=== PATIENT | female | born 1990 | race Caucasian/White ===

== ENCOUNTER 2023-02-05 10:00 | Outpatient (OUT) | payer MEDICAID, SELFPAY ==
[2023-02-05 10:16] LABS: Basophils Percent Auto 0.2 % (0.2-2.0); Eosinophils Absolute Auto 0.1 10^3/uL (0.0-0.7); Eosinophils Percent Auto 0.6 % (0.9-7.0); Hematocrit 37.3 % (36.0-48.0); Hemoglobin 12.3 g/dL (12.0-16.0); Immature Granulocytes Abs Auto 0.05 10^3/uL (0.00-0.03); Immature Granulocytes Pct Auto 0.4 % (0.0-0.5); Lymphocytes Absolute Auto 1.9 10^3/uL (1.2-3.8); Lymphocytes Percent Auto 16.8 % (20.5-60.0); Mean Corpuscular Hemoglobin 28.7 pg (26.7-34.0); Mean Corpuscular Volume 87.1 fL (81.0-99.0); Mean Platelet Volume 9.6 fL (9.5-13.5); Monocytes Absolute Auto 0.5 10^3/uL (0.3-0.8); Monocytes Percent Auto 4.4 % (1.7-12.0); Neutrophils Absolute Auto 8.7 10^3/uL (1.4-6.5); Neutrophils Percent Auto 77.6 % (43.0-75.0); Platelet Count 273 10^3/uL (150-450); Red Blood Count 4.28 10^6/uL (4.20-5.40); Red Cell Distribution Width 13.8 % (11.0-15.0); White Blood Count 11.2 10^3/uL (4.0-11.0)
[2023-02-05 12:18] LABS: Glucose 1 Hour 90 mg/dL
== END 2023-02-05 10:01 | disposition home or self-care (01) ==
LOC: LAB 10:01
PROVIDERS: Visit Provider Obstetrics & Gynecology
DX: Z34.90 Encounter for supervision of normal pregnancy, unspecified, unspecified trimester (principal)
CPT/HCPCS: 36415; 82950; 85025

== ENCOUNTER 2023-02-09 12:57 | Outpatient (OUT) | payer MEDICAID, SELFPAY ==
--- NOTE | 2023-02-09 13:00 | US_ITS ---
[address] [address] Patient Name: RUFINA MARVIN MRN: [id number] date: 1990 Sex: F Assigned Patient Location: US Current Patient Location: Accession/Order Number: [id number] Exam Date: 02/09/2023 13:00 Report Date: 02/11/2023 09:54 At the request of: JOSE KHAN Procedure: US OB incomplete anatomy EXAMINATION: US OB incomplete anatomy HISTORY: ENCOUNTER FOR FOLLOW UP ULTRASOUND OF ANATOMY Z36.2 COMPARISON: Ultrasound anatomy 12/17/2022 FINDINGS: Heart rate: 148 beats per minutes Amniotic fluid: Subjectively normal Anatomy: Three-vessel cord, cerebellum, posterior fossa, hard palate seen without appreciable abnormality. GA: 28 weeks 0 days CHALO: 05/04/2023 IMPRESSION: 1. Single live intrauterine . 2. No appreciable abnormality of the three-vessel cord, cerebellum, posterior fossa, or hard palate. Electronically authenticated by: RYAN ASHER Date: 02/11/2023 09:54
== END 2023-02-09 12:58 | disposition home or self-care (01) ==
LOC: US 12:57
PROVIDERS: Visit Provider Obstetrics & Gynecology
DX: Z36.2 Encounter for other antenatal screening follow-up (principal)
CPT/HCPCS: 76815

== ENCOUNTER 2023-03-19 12:14 | Outpatient (OUT) | payer MEDICAID, SELFPAY ==
[2023-03-19 12:36] VITALS: BP 117/56; PULSE 80
== END 2023-03-19 13:07 | disposition home or self-care (01) ==
LOC: FBCO 12:17 → FBC 12:20
PROVIDERS: Visit Provider Obstetrics & Gynecology
DX: O36.8130 Decreased fetal movements, third trimester, not applicable or unspecified (principal); Z3A.32 32 weeks gestation of pregnancy
CPT/HCPCS: 59025

== ENCOUNTER 2023-04-10 20:25 | Outpatient (REF) | payer MEDICAID, SELFPAY | END 2023-04-10 20:26 | disposition home or self-care (01) | LOC: LAB 20:25 | PROVIDERS: Visit Provider Obstetrics & Gynecology | DX: Z34.93 Encounter for supervision of normal pregnancy, unspecified, third trimester (principal) | CPT/HCPCS: 87081; 87150 ==

== ENCOUNTER 2023-04-29 05:25 | Inpatient (IN) | payer MEDICAID, SELFPAY ==
[2023-04-29] VITALS (36 sets, daily range): BP systolic 78–124; BP diastolic 45–71; PULSE 63–84; RESP 9–27; TEMP 35.8–37.1; O2SAT 95–100
[2023-04-29] MEDS: 0.9 % SODIUM CHLORIDE 1,000 ML 1000 ML IV ×2 (05:57→06:35)
[2023-04-29 05:58] LABS: Basophils Absolute Auto 0.1 10^3/uL (0.0-0.1); Basophils Percent Auto 0.4 % (0.2-2.0); Eosinophils Absolute Auto 0.1 10^3/uL (0.0-0.7); Hematocrit 35.3 % (36.0-48.0); Hemoglobin 11.5 g/dL (12.0-16.0); Immature Granulocytes Abs Auto 0.07 10^3/uL (0.00-0.03); Immature Granulocytes Pct Auto 0.6 % (0.0-0.5); Lymphocytes Absolute Auto 2.3 10^3/uL (1.2-3.8); Lymphocytes Percent Auto 19.6 % (20.5-60.0); Mean Corpuscular HGB Conc 32.6 g/dL (29.9-35.2); Mean Corpuscular Volume 85.9 fL (81.0-99.0); Mean Platelet Volume 10.7 fL (9.5-13.5); Monocytes Absolute Auto 0.8 10^3/uL (0.3-0.8); Monocytes Percent Auto 6.5 % (1.7-12.0); Neutrophils Absolute Auto 8.3 10^3/uL (1.4-6.5); Neutrophils Percent Auto 71.9 % (43.0-75.0); Platelet Count 259 10^3/uL (150-450); Red Blood Count 4.11 10^6/uL (4.20-5.40); White Blood Count 11.5 10^3/uL (4.0-11.0)
[2023-04-29 06:09] LABS: Amphetamine Screen Urine NEGATIVE (NEGATIVE); Barbiturates Screen Urine NEGATIVE (NEGATIVE); Benzodiazepines Screen Urine NEGATIVE (NEGATIVE); Buprenorphine Screen Urine NEGATIVE (NEGATIVE); Cannabinoid Screen Urine NEGATIVE (NEGATIVE); Cocaine Screen Urine NEGATIVE (NEGATIVE); Methadone Screen Urine NEGATIVE (NEGATIVE); Methamphetamines Screen Urine NEGATIVE (NEGATIVE); Opiate Screen Urine NEGATIVE (NEGATIVE); Oxycodone Screen Urine NEGATIVE (NEGATIVE); Phencyclidine Screen Urine NEGATIVE (NEGATIVE); Tricyclic Antidepressant Urine NEGATIVE (NEGATIVE)
[2023-04-29] MEDS: CEFAZOLIN SODIUM/DEXTROSE,ISO 2 GM/50 ML PIGGYBACK IV ×2 (06:58→13:55)
[2023-04-29] MEDS: METOCLOPRAMIDE HCL 10 MG/2 ML VIAL IVP (06:59)
[2023-04-29] MEDS: CITRIC ACID/SODIUM CITRATE 30 ML SOLUTION ORACIT SHOHL'S SOLN PO (06:59)
--- NOTE | 2023-04-29 07:40 | W.PC.ACHO ---
Registration Status: ADM IN Primary Language: Hong Konger Preferred Language: [place]er Active Medications Generic Name Dose Route Start Last Admin Trade Name Freq PRN Reason Stop Dose Admin Sodium Chloride 1,000 mls @ 125 mls/hr 04/29/23 05:30 Sodium Chloride 0.9% 1,000 Ml IV .Q8H ARTHUR Diet Category Date Time Status NPO Diet Diet 04/29/23 00:01 Active Consults Category Date Time Status Consult to Anesthesiology Routine Cons 04/29/23 Ordered IV Insertion/Site Date of IV Line Insertion [20g 04/29/23 left Forearm] IV Insertion Time [20g left 05:46 Forearm] Neurology Patient orientation (short person,place,time,situation list) Catheter Urinary Catheter Date of 04/29/23 Insertion [Urethral] Urinary Catheter Time of 06:04 Insertion [Urethral]
[2023-04-29] MEDS: LACTATED RINGER'S SOLUTION 1,000 ML 50 ML IV (08:06)
[2023-04-29] MEDS: OXYTOCIN/0.9 % SODIUM CHLORIDE 20 UNITS/1,000 ML PLAST..BAG 125 UNIT IV (09:31)
[2023-04-29] MEDS: ONDANSETRON PF 4 MG/2 ML VIAL IV (13:54)
--- NOTE | 2023-04-29 15:01 | P.OBPRC_ITS ---
Procedure Pre-op/Post-op diagnoses: Pre-Op/Post-Op Diagnoses Operation Date: 04/29/23 07:30 <No data on this case meets the specified criteria> Procedure: Procedures Operation Date: 04/29/23 07:30 Actual Procedure Side Surgeon p Repeat Not Applicable Fortunato Moore DO Manager Casino: Fortunato Moore Estimated blood loss (mL): 600 Disposition: floor Anesthesia type: Spinal
--- NOTE | 2023-04-29 15:02 | P.ON_ITS ---
Brief Operative Note Date of procedure: 04/29/23 Pre-op diagnosis: iup at 39wks, previous c/s Post-op diagnosis: same as pre-op Procedure: NAME OF PROCEDURE: [ section ] PROCEDURE: Patient was taken back to the Operating Room where she was given a spinal anesthesia with Duramorph without difficulty. She was prepped and draped in the normal sterile fashion. A Pfannenstiel skin incision was then made 2 cm above the symphysis pubis and carried down to underlying rectus fascia using a Bovie. The fascia was incised in the midline and extended laterally using Quiroga scissors. Two Rocio clamps were placed on the superior aspect of the fascia and dissected off the underlying rectus muscles. The same was performed on the inferior aspect as well. The muscles were then in the midline. Peritoneum was identified and entered bluntly. The peritoneum was then extended superiorly and inferiorly with good visualization of the bladder. The bladder blade was inserted. A low transverse incision was made on the patient's uterus and extended laterally digitally. The infant was then delivered atraumatically after the bladder blade was removed in the cephalic position. The cord was clamped and cut. Cord blood was obtained. The was handed off to awaiting team. The patient's placenta was spontaneously delivered. The uterus was then exteriorized. The uterus was cleared of all clots and debris. The bladder blade was reinserted. The patient's uterine incision was closed using #0 Vicryl in a running lock fashion. Excellent hemostasis was assured. The uterus was then returned to the patient's abdomen. The patient's abdomen was copiously irrigated using warm saline. Peritoneal gutters were cleared of all clots and debris. Again excellent hemostasis was assured. The patient's peritoneum was closed using 3-0 Vicryl in a running fashion. The patient's fascia was closed using #0 Vicryl in a running fashion. The patient's skin was closed using 4-0 Vicryl subcuticularly. The patient tolerated the procedure well. Sponge, lap, and needle counts were correct x2. The patient was taken to the Recovery Room in stable condition. Anesthesia: spinal Surgeon: Fortunato Moore Digital Computer Operator: Tomasa Giraldo Estimated blood loss (mL): 600 Pathology: none sent Condition: stable Disposition: PACU
[2023-04-29] MEDS: KETOROLAC TROMETHAMINE 30 MG/ML VIAL IVP ×2 (16:29→23:13)
[2023-04-29] MEDS: ENOXAPARIN SODIUM 40 MG/0.4 ML SYRINGE SUBQ (20:14)
[2023-04-30] VITALS (7 sets, daily range): BP systolic 98–114; BP diastolic 54–66; PULSE 72–88; RESP 16; TEMP 36.4–37.1; O2SAT 98
--- NOTE | 2023-04-30 03:50 | PM.OBPN ---
OB - PN: Subj Subjective Patient comments: no complaints and pain well controlled [place] status: doing well Exam Constitutional Vital Signs, click to edit/add: Last Vital Signs Temp 98.4 F 04/29/23 23:50 Pulse 76 04/29/23 23:50 Resp 16 04/29/23 23:50 BP 110/53 04/29/23 23:50 Pulse Ox 95 04/29/23 23:50 O2 Del Method Room Air 04/29/23 23:50 Documenting provider has reviewed patient's vital signs: yes Common normals: no apparent distress General appearance: cooperative and comfortable HENMT Common normals: normocephalic Eye Common normals: EOMs intact bilaterally Neck & C-Spine Common normals: full ROM Lymph Lymphatic: no lymphadenopathy noted Chest Common normals: inspection of chest normal Respiratory Common normals: normal respiratory effort, no retractions, no use of accessory muscles and clear to auscultation bilaterally Cardio Common normals: no JVD, regular rate and regular rhythm Rate: regular rate Rhythm: regular rhythm GI Common normals: Normal to inspection, nondistended, normoactive bowel sounds present Auscultation: hypoactive bowel sounds Palpation: soft Back & Pelvis Common normals: no CVA tenderness Extremity Common normals: normal to inspection and full ROM Neuro Common normals: oriented x3 Sensorium/orientation: awake, alert, oriented to person, oriented to place and oriented to time Speech: speech normal Psych Common normals: mental status grossly normal Results Labs Labs: Short CBC 04/29/23 Range/Units 05:47 WBC 11.5 H (4.0-11.0) 10^3/uL Hgb 11.5 L (12.0-16.0) g/dL Hct 35.3 L (36.0-48.0) % Plt Count 259 (150-450) 10^3/uL OB - PN: A/P Assessment and Plan (1) Delivery by section: Time Spent with Patient Time: Total time spent is greater than 50% in coordination of care (as documented) at patient's floor/unit and/or counseling patient: Total time spent with greater than 50% in coordination of care (as documented) at patient's floor/unit and/or counseling patient: less than 15 minutes
[2023-04-30 06:05] LABS: Basophils Percent Auto 0.3 % (0.2-2.0); Eosinophils Absolute Auto 0.1 10^3/uL (0.0-0.7); Eosinophils Percent Auto 0.4 % (0.9-7.0); Hematocrit 29.9 % (36.0-48.0); Hemoglobin 9.7 g/dL (12.0-16.0); Immature Granulocytes Abs Auto 0.12 10^3/uL (0.00-0.03); Immature Granulocytes Pct Auto 0.8 % (0.0-0.5); Lymphocytes Absolute Auto 2.8 10^3/uL (1.2-3.8); Lymphocytes Percent Auto 18.5 % (20.5-60.0); Mean Corpuscular HGB Conc 32.4 g/dL (29.9-35.2); Mean Corpuscular Hemoglobin 28.5 pg (26.7-34.0); Mean Corpuscular Volume 87.9 fL (81.0-99.0); Monocytes Absolute Auto 0.9 10^3/uL (0.3-0.8); Neutrophils Absolute Auto 11.3 10^3/uL (1.4-6.5); Platelet Count 256 10^3/uL (150-450); Red Cell Distribution Width 14.1 % (11.0-15.0); White Blood Count 15.3 10^3/uL (4.0-11.0)
[2023-04-30] MEDS: KETOROLAC TROMETHAMINE 30 MG/ML VIAL IVP ×3 (06:32→19:38)
[2023-04-30] MEDS: DOCUSATE SODIUM 100 MG CAPSULE PO ×2 (10:08→20:13)
[2023-04-30] MEDS: ENOXAPARIN SODIUM 40 MG/0.4 ML SYRINGE SUBQ (20:13)
[2023-05-01] MEDS: KETOROLAC TROMETHAMINE 30 MG/ML VIAL IVP (02:11)
--- NOTE | 2023-05-01 09:01 | PM.OBPN ---
Exam Constitutional Vital Signs, click to edit/add: Last Vital Signs Temp 98.4 F 04/30/23 23:45 Pulse 80 04/30/23 23:45 Resp 16 04/30/23 23:50 BP 98/54 04/30/23 23:45 Pulse Ox 98 04/30/23 03:52 O2 Del Method Room Air 04/30/23 03:52 Documenting provider has reviewed patient's vital signs: yes Common normals: no apparent distress and oriented x3 General appearance: cooperative, comfortable and well kempt HENMT Common normals: normocephalic Eye Common normals: EOMs intact bilaterally Neck & C-Spine Common normals: full ROM Lymph Lymphatic: no lymphadenopathy noted Chest Common normals: inspection of chest normal Respiratory Common normals: normal respiratory effort Effort & inspection: able to speak in complete sentences Auscultation: clear to auscultation bilaterally Cardio Common normals: no JVD, regular rate and regular rhythm GI Common normals: Normal to inspection, nondistended, normoactive bowel sounds present Common normals: no CVA tenderness Back & Pelvis Common normals: no CVA tenderness Extremity Common normals: normal to inspection and full ROM Neuro Common normals: oriented x3 and moves all extremities Sensorium/orientation: awake, oriented to person, oriented to place and oriented to time Psych Common normals: mental status grossly normal, thought process normal, cooperative, affect normal and speech normal OB - PN: A/P Assessment and Plan (1) Delivery by section: Plan - day: 2 Plan: discharge home and follow up 6 weeks Time Spent with Patient Time: Total time spent is greater than 50% in coordination of care (as documented) at patient's floor/unit and/or counseling patient: Total time spent with greater than 50% in coordination of care (as documented) at patient's floor/unit and/or counseling patient: less than 15 minutes
--- NOTE | 2023-05-01 09:03 | PM.OBDS ---
DS: Providers Provider Date of admission: 04/29/23 05:25 Primary care physician: Non-Staff Physician, Admitting clinician: Fortunato Moore Attending physician on admission: Fortunato Moore Consults: 04/29/23 Consult to Anesthesiology Routine Consulting Provider: Manjeet Thapa Reason for consultation: Attending physician on discharge: [place] TO Discharging clinician: [place] TO Anticipated date of discharge: 05/01/23 DS: Diagnosis Discharge Diagnosis (1) Delivery by section: OB - DS: Summary Peripartum Data - Procedures: Procedures Operation Date: 04/29/23 07:30 Actual Procedure Side Surgeon p Repeat Not Applicable Fortunato Moore DO Peripartum Data - Vaginal Delivery Procedures: Procedures Operation Date: 04/29/23 07:30 Actual Procedure Side Surgeon p Repeat Not Applicable Fortunato Moore DO Complications complications: none Infant Delivery method: section Gender: female Time Spent with Patient Time attestation: Total time spent providing and/or coordinating discharge services: Time spent: less than 30 minutes Exam Narrative Exam Narrative: see rounding assessment Constitutional Vital Signs, click to edit/add: Last Vital Signs Temp 98.4 F 04/30/23 23:45 Pulse 80 04/30/23 23:45 Resp 16 04/30/23 23:50 BP 98/54 04/30/23 23:45 Pulse Ox 98 04/30/23 03:52 O2 Del Method Room Air 04/30/23 03:52 Discharge Plan Discharge Disposition: Home, Self-Care Condition: Good Discharge Medications: New oxycodone-acetaminophen 5-325 mg Tablet 1 tab PO Q8H PRN (Reason: Pain Scale 4-6) 7 Days Qty: 20 0RF ibuprofen 400 mg Tablet 800 mg PO Q8H PRN (Reason: Pain) Qty: 60 1RF Forms: Portal Instructions
[2023-05-01 09:16] VITALS: BP 115/70; PULSE 71; TEMP 27.6; TEMP 36
--- NOTE | 2023-05-01 09:55 | PC.NURSE ---
plan of care reviewed. d/c discussed. assessed as charted. then infant to breast.
[2023-05-01] MEDS: ADACEL DIPH,PERTUSS(ACELL),TET VAC/PF 0.5 ML ADULT SYRINGE IM (12:07)
[2023-05-01] MEDS: MEASLES,MUMPS,RUBELLA VACC/PF 0.5 ML VIAL SQ (12:09)
== END 2023-05-01 12:20 | disposition home or self-care (01) | DRG 540 ==
PROVIDERS: Admitting Provider Obstetrics & Gynecology; Visit Provider Obstetrics & Gynecology
PROC: 10D00Z1 Extraction of Products of Conception, Low, Open Approach (ICD-10-PCS; CPT 59514; principal; 2023-04-29 07:30)
DX: O34.211 Maternal care for low transverse scar from previous cesarean delivery (principal); O99.344 Other mental disorders complicating childbirth; F41.9 Anxiety disorder, unspecified; Z3A.39 39 weeks gestation of pregnancy; Z37.0 Single live birth; Z91.030 Bee allergy status; Z79.899 Other long term (current) drug therapy; Z23 Encounter for immunization
CPT/HCPCS: 36415; 59025; 59050; 80307; 85025; 86850; 86900; 86901; 90471; 90472; 90707; 90715; 96372; 96374; 96375; 96376

== ENCOUNTER 2023-05-03 10:22 | Outpatient (OUT) | payer MEDICAID, SELFPAY ==
--- NOTE | 2023-05-03 14:28 | PC.NURSE ---
Flor and baby arrive for support. Had difficulty latching during engorgement and baby now refuses to latch. Parents have been feeding 1 oz pumped milk every 1-3 hours via syringe. Shama weight is stable and to breast. Several attempts to latch before latches well with couple of drops of sweet ease. Then settles into feed, nursing well with audible swallows. Milk noted in mouth when released latch. Parents feel much better than when at home. Mom states is confident that can return home and continue .
== END 2023-05-03 13:50 | disposition home or self-care (01) ==
LOC: FBCO 10:33
PROVIDERS: Visit Provider Obstetrics & Gynecology
DX: Z39.1 Encounter for care and examination of lactating mother (principal)
CPT/HCPCS: G0463

== ENCOUNTER 2023-05-07 08:57 | Outpatient (OUT) | payer MEDICAID, SELFPAY ==
--- NOTE | 2023-05-07 13:27 | PC.NURSE ---
Flor and Shama arrive for support. Both are doing well. Flor states everything just clicked after seeing you last visit States baby has been feeding well and latching well. Multiple wets and stool diapers daily, weight increasing now only has a 3.9 % weight loss on day 8 of life. Mom will call as needed for support. Aware of [facility]OM[facility] group 05/27/2023.
== END 2023-05-07 13:30 | disposition home or self-care (01) ==
LOC: FBCO 09:00
PROVIDERS: Visit Provider Obstetrics & Gynecology
DX: Z39.1 Encounter for care and examination of lactating mother (principal)
CPT/HCPCS: G0463

== ENCOUNTER 2023-05-12 16:38 | Observation (INO) | payer MEDICAID, SELFPAY ==
[2023-05-12 16:53] VITALS: BP 107/71; PULSE 79; RESP 20; TEMP 37.4; O2SAT 98; BMI 33.2
--- NOTE | 2023-05-12 18:19 | P.GYNHP_ITS ---
BAG LOADER - H&P: HPI Non-OR Reason for admission: other Narrative: 32yo s/p Repeat Section 2 weeks ago presents after evaluation at [facility] for bulge and pain seen at incision site. She was recently evaluated by Dr Moore in his office and given Keflex 500mg TID but did not start until this past Saturday due to pharmacy delay. The oral antibiotics did make her feel better but the bulge increased with pain. Patient had US done at [facility] and noted 15cm complex area under section scar not compromising the peritoneum. Patient denies current drainage now. Of note patient does not a rash on anterior both breasts and benadryl improves it. Per patient, Mom is also present, that she has and can take Amoxicillan when needed. Patient is currently breast feeding. Review of Systems ROS Status of ROS 10 or more systems reviewed and unremarkable except as noted in history and below [facility] Medical History (Updated 05/12/23 @ 18:36 by Radha Garcia) Anxiety ?F41.9 - Anxiety disorder, unspecified (ICD-10) delivery delivered ?O82 - Encounter for delivery without indication (ICD-10) Depression ?F32.A - Depression, unspecified (ICD-10) Panic attack ?F41.0 - Panic disorder [episodic paroxysmal anxiety] (ICD-10) Suicidal thoughts ?R45.851 - Suicidal ideations (ICD-10) Surgical History Previous back surgery ?Z98.890 - Other specified postprocedural states (ICD-10) Family History (Updated 04/29/23 @ 06:16 by aYn Adams) Grandmother Family history of COPD (chronic obstructive pulmonary disease) Family history of cancer Mother Family history of hypertension Grandfather Family history of myocardial infarction Social History (Updated 04/29/23 @ 06:17 by Yan Adams) Within the past year, how often did you have a drink containing alcohol: never Within the past year, how often did you have six or more drinks on one occasion: never Score interpretation: A score less than 3 is consistent with normal alcohol consumption. Smoking status: Former smoker Non-prescribed substance use: denies use Highest level of school completed/degree received: Bachelor's degree Are you now , , , , never or living with a partner: living with partner In a typical week, how many times do you talk on the telephone with family, friends, or neighbors: 3 or more times per week How often do you get together with friends or relatives: 3 or more times per week How often do you attend latter-day or faith services: never Little interest or pleasure in doing things: not at all Feeling down, depressed, or hopeless: not at all Feel stressed/tense/nervous/anxious/difficulty sleeping: to some extent Do you think of yourself as: straight/heterosexual Gender Identity: female Meds Home Medications and Allergies Home Medications Medication Instructions Recorded Confirmed Type ibuprofen 400 mg tablet 800 mg PO Q8H PRN Pain #60 tabs 05/01/23 05/12/23 Rx oxycodone-acetaminophen 5 mg-325 1 tab PO Q8H PRN Pain Scale 4-6 7 05/01/23 05/12/23 Rx mg tablet days #20 tabs Allergies Allergy/AdvReac Type Severity Reaction Status Date / Time No Known Drug Allergies Allergy Verified 03/19/23 12:45 Exam Narrative Exam Narrative: Tearful but not in acute distress, today is her 3 year old's birthday Constitutional Vital Signs, click to edit/add: Last Vital Signs Temp 99.3 F 05/12/23 16:53 Pulse 79 05/12/23 16:53 Resp 20 05/12/23 16:53 BP 107/71 05/12/23 16:53 Pulse Ox 98 05/12/23 16:53 O2 Del Method Room Air 05/12/23 16:53 Common normals: no apparent distress, average body habitus, oriented x3, no limitations, healthy appearing, alert and well nourished [facility] Common normals: normocephalic, head/scalp atraumatic, hearing grossly normal bilaterally, external ears normal, EACs normal, TMs normal bilaterally, external nose normal, nasal mucous membranes and turbinates normal, moist oral mucous membranes, oropharynx normal, dentition normal and gingiva normal Eye Common normals: PERRL, EOMs intact bilaterally, conjunctivae normal, no scleral icterus, no papilledema, normal visual hutton by confrontation and fundi normal bilaterally Neck & C-Spine Common normals: full ROM, no lymphadenopathy, supple, no meningeal signs, no JVD, thyroid normal and no carotid bruits Lymph Lymphatic: no lymphadenopathy noted Chest Common normals: inspection of chest normal, palpation of chest normal, inspection of breasts normal and palpation of breasts normal Other: mild rash anterior surface of both breasts along stretch perez Respiratory Common normals: normal respiratory effort, no retractions, no use of accessory muscles, clear to auscultation bilaterally and percussion normal Cardio Common normals: no JVD, regular rate, regular rhythm, S1 normal heart sound, S2 normal heart sound, no gallops, no clicks, no murmurs, no rub and peripheral pulses 2+ throughout GI Common normals: Normal to inspection, nondistended, normoactive bowel sounds present Other: section is intact with induration and mild erythema with inflammation involving almost the entire situation except for about 3cm left lateral of incision, with raised area 3cm medial of right lateral edge approximately 5cm in size, mildly tender Common normals: no CVA tenderness Back & Pelvis Common normals: no CVA tenderness Extremity Common normals: normal to inspection Neuro Common normals: oriented x3 and moves all extremities Psych Common normals: mental status grossly normal, thought process normal, cooperative, affect normal, speech normal, activity/motor behavior normal, denies hallucinations, denies homicidal ideation and denies suicidal ideation Results Labs Labs: WBC 12.2, Hgb 12.7, Hct 39, platelets 382 electolytes normal Imaging US - abdomen: Radiologist's impression: at section scar - complex septated collection measuring 15.7cm Assessment and Plan Assessment and Plan (1) Incisional infection: Plan Incisional infection - 15.7cm complex septated collection by US done at [facility] patient stable discussed plan with patient and her Mom IV Hennasyn will inform Dr Teresa WOLFE after midnight for possible I&D tomorrow all questions answered, patient understands
[2023-05-12 19:31] VITALS: BP 131/78; PULSE 82; RESP 16; TEMP 37.1; O2SAT 98
[2023-05-12] MEDS: VANCOMYCIN HCL 1,500 MG in 0.9 % SODIUM CHLORIDE 500 ML 250 MG IV (20:19)
[2023-05-12] MEDS: LACTATED RINGER'S SOLUTION 1,000 ML 100 ML IV (23:08)
[2023-05-13 03:46] VITALS: BP 105/63; PULSE 79; RESP 16; TEMP 36.4; O2SAT 95
[2023-05-13 06:08] LABS: Basophils Absolute Auto 0.1 10^3/uL (0.0-0.1); Basophils Percent Auto 0.5 % (0.2-2.0); Eosinophils Absolute Auto 0.4 10^3/uL (0.0-0.7); Eosinophils Percent Auto 3.6 % (0.9-7.0); Hematocrit 35.9 % (36.0-48.0); Immature Granulocytes Abs Auto 0.04 10^3/uL (0.00-0.03); Immature Granulocytes Pct Auto 0.3 % (0.0-0.5); Lymphocytes Absolute Auto 1.8 10^3/uL (1.2-3.8); Lymphocytes Percent Auto 15.4 % (20.5-60.0); Mean Corpuscular HGB Conc 30.6 g/dL (29.9-35.2); Mean Corpuscular Volume 88.2 fL (81.0-99.0); Mean Platelet Volume 10.3 fL (9.5-13.5); Monocytes Absolute Auto 0.5 10^3/uL (0.3-0.8); Monocytes Percent Auto 4.4 % (1.7-12.0); Neutrophils Absolute Auto 8.7 10^3/uL (1.4-6.5); Neutrophils Percent Auto 75.8 % (43.0-75.0); Platelet Count 393 10^3/uL (150-450); Red Blood Count 4.07 10^6/uL (4.20-5.40); Red Cell Distribution Width 13.4 % (11.0-15.0); White Blood Count 11.5 10^3/uL (4.0-11.0)
[2023-05-13 06:37] LABS: Basophils Percent Auto 0.3 % (0.2-2.0); Eosinophils Absolute Auto 0.4 10^3/uL (0.0-0.7); Eosinophils Percent Auto 3.5 % (0.9-7.0); Hematocrit 36.4 % (36.0-48.0); Hemoglobin 11.2 g/dL (12.0-16.0); Immature Granulocytes Abs Auto 0.04 10^3/uL (0.00-0.03); Immature Granulocytes Pct Auto 0.3 % (0.0-0.5); Lymphocytes Absolute Auto 1.6 10^3/uL (1.2-3.8); Lymphocytes Percent Auto 13.6 % (20.5-60.0); Mean Corpuscular HGB Conc 30.8 g/dL (29.9-35.2); Mean Corpuscular Hemoglobin 27.2 pg (26.7-34.0); Mean Corpuscular Volume 88.3 fL (81.0-99.0); Mean Platelet Volume 9.9 fL (9.5-13.5); Monocytes Absolute Auto 0.5 10^3/uL (0.3-0.8); Monocytes Percent Auto 4.1 % (1.7-12.0); Neutrophils Percent Auto 78.2 % (43.0-75.0); Platelet Count 389 10^3/uL (150-450); Red Blood Count 4.12 10^6/uL (4.20-5.40); Red Cell Distribution Width 13.3 % (11.0-15.0); White Blood Count 11.6 10^3/uL (4.0-11.0)
[2023-05-13 06:37] LABS: Alanine Aminotransferase 17 U/L (14-59); Albumin Globulin Ratio 0.7; Albumin Level 2.6 g/dL (3.4-5.0); Alkaline Phosphatase 86 U/L (46-116); Anion Gap 12.1; Aspartate Amino Transferase 10 U/L (15-37); BUN Creatinine Ratio 16.4; Bilirubin Total 0.3 mg/dL (0.2-1.0); Calcium 8.5 mg/dL (8.5-10.1); Carbon Dioxide 21.9 mmol/L (21.0-32.0); Chloride 107 mmol/L (98-107); Estimated GFR (African America >60 (>=60); Estimated GFR (Non-African Ame >60 (>=60); Globulin 3.7 g/dL; Glucose 82 mg/dL (74-106); Sodium 137 mmol/L (136-145); Total Protein 6.3 g/dL (6.4-8.2)
[2023-05-13 06:44] LABS: Anion Gap 11.2; BUN Creatinine Ratio 15.7; Calcium 8.3 mg/dL (8.5-10.1); Carbon Dioxide 22.9 mmol/L (21.0-32.0); Chloride 107 mmol/L (98-107); Estimated GFR (African America >60 (>=60); Estimated GFR (Non-African Ame >60 (>=60); Glucose 85 mg/dL (74-106); Potassium 4.1 mmol/L (3.5-5.1); Sodium 137 mmol/L (136-145)
[2023-05-13 06:47] LABS: Partial Thromboplastin Time 35.4 sec (22.3-36.2); Prothrombin Time 9.8 sec (9.0-11.6)
[2023-05-13 06:49] LABS: INR <0.93
[2023-05-13] MEDS: IBUPROFEN 600 MG TABLET PO (08:46)
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
--- NOTE | 2023-05-13 11:25 | CM.NOTE ---
Rounds made with Dr. Daniels. Dr. Daniels discussed choices of antibiotics for home and while on antibiotics. Dr. Daniels recommended discussing antibiotics while with Intranet Developer as well. Flor verbalizes understanding. Plan for discharge today.
--- NOTE | 2023-05-13 11:35 | P.DS_ITS ---
Patient seen and examined. Case d/w Tameka Tomlinson. Agree with findings, plan of care and treatment. Stable for d/c on oral abx. Patient asked to f/u with OBGYN and Pedaitrician. Please refer to same day H&P, exam for more details. DS: Providers Provider Date of admission: 05/12/23 16:38 Primary care physician: Non-Staff Physician, Admitting clinician: Shaikh Jeremiah Consults: 05/12/23 Consult to Hospitalist, CDL A DRIVER Routine Consulting Provider: Radha Garcia Reason for consultation: post abscess DR Garcia aware Has provider been notified: Yes Discharging clinician: Tameka Tomlinson Anticipated date of discharge: 05/13/23 DS: Diagnosis Discharge Diagnosis (1) Incisional infection: Assessment and plan: Please see the Short Stay Summary/H&P for A&P and hospital course DS: Summary Hospital Course Hospital Course: Please see the Short Stay Summary/H&P for A&P and hospital course Status at Discharge Functional status at discharge: independent ambulation Time Spent with Patient Time attestation: Total time spent providing and/or coordinating discharge services: Time spent: greater than 30 minutes Exam Narrative Exam Narrative: Please see the Short Stay Summary/H&P for physical exam findings Constitutional Vital Signs, click to edit/add: Last Vital Signs Temp 97.6 F 05/13/23 03:46 Pulse 79 05/13/23 03:46 Resp 16 05/13/23 03:46 BP 105/63 05/13/23 03:46 Pulse Ox 95 05/13/23 03:46 O2 Del Method Room Air 05/13/23 03:46 DS: Data Data Completed and Pending Labs on day of discharge: Labs from last 24 hours 05/13/23 05/13/23 06:27 04:58 WBC 11.6 H 11.5 H RBC 4.12 L 4.07 L Hgb 11.2 L 11.0 L Hct 36.4 35.9 L MCV 88.3 88.2 MCH 27.2 27.0 MCHC 30.8 30.6 RDW 13.3 13.4 Plt Count 389 393 MPV 9.9 10.3 Neut % (Auto) 78.2 H 75.8 H Lymph % (Auto) 13.6 L 15.4 L [place] % (Auto) 4.1 4.4 Eos % (Auto) 3.5 3.6 Baso % (Auto) 0.3 0.5 Neut # (Auto) 9.0 H 8.7 H Lymph # (Auto) 1.6 1.8 [place] # (Auto) 0.5 0.5 Eos # (Auto) 0.4 0.4 Baso # (Auto) 0.0 0.1 Abs Immat Gran (auto) 0.04 H 0.04 H Imm/Tot Granulo (auto) 0.3 0.3 PT 9.8 INR <0.93 APTT 35.4 Sodium 137 137 Potassium 4.1 4.0 Chloride 107 107 Carbon Dioxide 22.9 21.9 Anion Gap 11.2 12.1 BUN 11.0 12.0 Creatinine 0.70 0.73 Est GFR ( Amer) >60 >60 Est GFR (Non-Af Amer) >60 >60 BUN/Creatinine Ratio 15.7 16.4 Glucose 85 82 Calcium 8.3 L 8.5 Total Bilirubin 0.3 AST 10 L ALT 17 Alkaline Phosphatase 86 Total Protein 6.3 L Albumin 2.6 L Globulin 3.7 Albumin/Globulin Ratio 0.7 Additional Comments Additional comments: Abdominal US performed at [facility]. Please see documentation from that ED visit for further information. Discharge Plan Discharge Disposition: Home, Self-Care Condition: Good Assessment: Please see the Short Stay Summary/H&P for A&P and hospital course Discharge Medications: New ibuprofen 800 mg tablet 800 mg PO Q8H PRN (Reason: pain) 14 Days Qty: 40 0RF hydrocodone-acetaminophen 5-325 mg tablet 1 tab PO Q4H PRN (Reason: pain) 4 Days Qty: 16 0RF metronidazole 500 mg tablet 500 mg PO BID 7 Days Qty: 14 0RF clindamycin HCl [Cleocin HCl] 300 mg capsule 300 mg PO TID 7 Days Qty: 21 0RF Continued oxycodone-acetaminophen 5-325 mg Tablet 1 tab PO Q8H PRN (Reason: Pain Scale 4-6) 7 Days Qty: 20 0RF ibuprofen 400 mg Tablet 800 mg PO Q8H PRN (Reason: Pain) Qty: 60 1RF Activity: resume usual activities as tolerated Diet: advance to your usual diet Activity Restrictions/Additional Instructions: * Contact your infant's pastry wrapper regarding safety/risks while taking Clindamycin and Flagyl Forms: Portal Instructions Follow Up Appointments: Dr Moore 05/13 at 8:50a [phone]
--- NOTE | 2023-05-14 11:31 | CM.DCFOLLOWU ---
Person spoke with: patient How are you feeling? much better How is your pain? able to move around a lot better without pain Did you understand your discharge instructions? yes Do you have any questions about your discharge instructions? no Were you given any prescriptions at discharge? yes four of them and got them all filled without any issues. Were you able to get your prescriptions filled? yes Do you understand how to take your medications as ordered? yes Do you have any questions about your follow up appointment and do you plan to keep your follow up appointment? had my follow up this morning with Dr. Moore and they said everything was looking much better. Is there anything else that you would like to discuss? No Questions/Comments/Concerns/Other: n/a
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
== END 2023-05-13 12:30 | disposition home or self-care (01) ==
PROVIDERS: Internal Medicine; Admitting Provider Obstetrics & Gynecology; Visit Provider Nurse Practitioner
DX: O90.2 Hematoma of obstetric wound (principal); Z87.891 Personal history of nicotine dependence
CPT/HCPCS: 36415; 80048; 80053; 85025; 85610; 85730; 87070; 87106; 87150; 87186; 96365; 96366; G0378; G0379; J3370

== ENCOUNTER 2023-07-16 19:17 | Outpatient (REF) | payer MEDICAID, SELFPAY ==
[2023-07-20 19:07] LABS: Age Gdln ACOG Testing Note (.); HPV Aptima Negative (Negative); IGP, Aptima HPV, rfx 16/18,45 Note (.)
== END 2023-07-16 19:18 | disposition home or self-care (01) ==
LOC: LAB 19:17
PROVIDERS: Visit Provider Obstetrics & Gynecology
DX: Z01.419 Encounter for gynecological examination (general) (routine) without abnormal findings (principal)
CPT/HCPCS: 87624; G0145

== ENCOUNTER 2024-07-22 19:07 | Outpatient (REF) | payer MEDICAID, SELFPAY ==
--- OUTSIDE RECORDS SUMMARY | 2024-07-22 19:12 | XMS_ITS | CCD ---
Author Organization [facility] Care Team Providers Care [employer] Name Role Phone Mary Kate Evans Primary Care Physician [phone] Jose KHAN Admitting Unavailable BILL, Jose Aguirre Attending Unavailable Mary Kate Evans Admitting Unavailable Mary Kate Evans Attending Unavailable OrzechJo-Ann Attending Unavailable Margoth, Jareth Stanley Attending Unavailable MargothJareth Attending Unavailable BILL ., DR GARCIA Attending Unavailable REQUEST, NONE LISTED Primary Care Unavaila ble BILL ., DR GARCIA Consulting Unavailable BILL ., DR GARCIA Admitting Unavailable ZIEBER, DR RYAN Aguirre Consulting Unavailable REQUEST, NONE LISTED Primary Care Unavaila ble ADELINA ., LYNN Admitting Unavailable ADELINA ., LYNN Attending Unavailable ADELINA ., LYNN Consulting Unavailable BILL ., DR GARCIA Admitting Unavailable BILL ., DR GARCIA Attending Unavailable REQUEST, NONE LISTED Primary Care Unavaila ble BILL ., DR GARCIA Consulting Unavailable BILL ., DR GARCIA Attending Unavailable REQUEST, NONE LISTED Primary Care Unavaila ble BILL ., DR GARCIA Consulting Unavailable BILL ., DR GARCIA Admitting Unavailable ZIEBER, DR RYAN Aguirre Consulting Unavailable eDirdre Geronimoina F Attending Unavailable Juanpablo Betty F Admitting Unavailable Melisa Evansecca Jaden Primary Care Unavailable JOSE KHAN Attending Unavailable Allergies Allergy Classification Reported Allergen(s) Allergy Type Date of Onset Reaction(s) Facility (3 sources) Bee/Wasp/Ant venom; Translations: [Bee Stings] Drug allergy Anaphylaxis (disorder) [facility] (1 source) Cephalexin Drug Allergy [address] [place] [address] Repository Medications Current Medications Medication Drug Class(es) Dates Sig (Normalized) Sig (Original) ALPRAZolam 0.25 mg oral tablet (2 sources) Benzodiazepine Start: 10-24-2018 take 1 tablet by mouth at bedtime Xanax 0.25 mg Tab 0.25 mg = 1 tab(s), Oral, Bedtime, Refills(s) 0 Start Date: 10/24/18 Status: Ordered amoxicillin 500 mg oral capsule (1 source) Penicillin-class Antibacterial Start: 04-05-2022 End: 04-15-2022 take 1 capsule by mouth every twelve hours amoxicillin 500 mg Cap 500 mg = 1 cap(s), Oral, q12hr, X 10 day(s), # 20 cap(s), Refills(s) 0, Pharmacy: [id number], 167, cm, 04/05/22 18:37:00 EDT, Height/Length Dosing, 91, kg, 04/05/22 18:37:00 EDT, Weight Dosing Start Date: 04/05/22 Stop Date: 04/15/22 Status: Ordered ethinyl estradiol 0.02 mg / ferrous fumarate 75 mg / norethindrone 1 mg oral tablet (1 source) Estrogen Start: 03-22-2020 take 1 tablet by mouth once daily [place] Fe 1/20 EQ oral tablet tab(s), Oral, Daily, Refill(s) 0 Start Date: 03/22/20 Status: Ordered folic acid 0.4 mg oral tablet (2 sources) Start: 03-05-2018 take 1 tablet by mouth once daily folic acid 0.4 mg Tab 0.4 mg = 1 tab(s), Oral, Daily, Other (see comment) Start Date: 03/05/18 Status: Ordered Mirena (2 sources) Progestin, Progestin-containing Intrauterine Device Start: 01-02-2018 Mirena = 1 EA, IntraUteral, Once, Refills(s) 0 Start Date: 01/02/18 Status: Ordered metFORMIN hydrochloride 500 mg oral tablet (1 source) Biguanide Start: 04-05-2022 MetFORMIN (Eqv-Glucophage XR) 500 mg oral tablet, extended release Refills(s) 0 Start Date: 04/05/22 Status: Ordered [place] Fe 1/20 EQ oral tablet (1 source) Start: 03-22-2020 take 1 tablet by mouth once daily [place] Fe 1/20 EQ oral tablet tab(s), Oral, Daily, Refill(s) 0 Start Date: 03/22/20 Status: Ordered Problems Problem Classification Problem Date Documented Date Episodic/Chronic Anxiety disorders (2 sources) Anxiety 03-24-2019 Chronic Menstrual disorders (4 sources) Irregular menstruation, unspecified; Translations: [IRREGULAR MENSTRUATION UNSPECIFIED] Onset: 10-24-2022 Chronic Other female genital disorders (2 sources) Dysplasia of cervix 03-24-2019 Episodic Other nutritional; endocrine; and metabolic disorders (1 source) Obese class I; Translations: [Body mass index (BMI) 32.0-32.9, adult] Onset: 04-05-2022 Chronic Other and delivery including normal (5 sources) Encounter for supervision of normal , unspecified, second trimester; Translations: [Encounter for supervision of normal , unspecified, first trimester] Onset: 10-03-2022 Episodic Other screening for suspected conditions (not mental disorders or infectious disease) (4 sources) Encounter for other specified screening; Translations: [[facility] SPEC SCRE[facility]] Onset: 12-17-2022 Episodic Otitis media and related conditions (1 source) Otitis media; Translations: [Otitis media, unspecified, left ear] Onset: 04-05-2022 Episodic Unclassified (1 source) Infection of obstetric surgical wound, superficial incisional site; Translations: [Infection of obstetric surgical wound, superficial incisional site] Onset: 05-12-2023 Viral infection (2 sources) Anogenital human papillomavirus infection 03-24-2019 Episodic Results Test Name Value Interpretation Reference Range Facility Basic Metabolic Panelon 100 Anion gap [Moles/Vol] 12.0 mmol/L Normal 6.0-15.0 [facility] Comment on above: Performed By: #### C BC, BMP #### [facility] [address] [id number] [place] Calcium [Mass/Vol] 9.2 mg/dL Normal 8.6-10.3 [facility] Comment on above: Performed By: #### C BC, BMP #### [facility] [address] [id number] [place] Chloride [Moles/Vol] 105 mmol/L Normal 98-107 [facility] Comment on above: Performed By: #### C BC, BMP #### [facility] [address] CO2 [Moles/Vol] 23.3 mmol/L Normal 21.0-31.0 [facility] Comment on above: Performed By: #### C BC, BMP #### [facility] [address] Creatinine [Mass/Vol] 0.76 mg/dL Normal 0.60-1.20 [facility] Comment on above: Performed By: #### C BC, BMP #### [facility] [address] [place] [address] [place] Creatinine Clr Calc Pharmacy 123.36 Normal [facility] Comment on above: Result Comment: PERF ORMED BY: [place] [address] PATHOLOGIST ROOFING TILE SORTER EVARISTO FLOREZ M.D. Performed By: #### C BC, BMP #### [place] [address] [place] GFR/1.73 sq M.predicted MDRD (S/P/Bld) [Vol rate/Area] mL/min/{1.73_m2} Normal [facility] Comment on above: Performed By: #### C BC, BMP #### [address] Glucose [Mass/Vol] 80 mg/dL Normal 70-100 [facility] Comment on above: Result Comment: [place] Glucose Reference Range is dependent on time and content of last meal. Glucose of more than 200 mg/dL in a nonstressed, ambulatory subject supports the diagnosis of Diabetes Mellitus. ADA recommended reference range Performed By: #### C BC, BMP #### [facility] [address] [place] [address] [place] Potassium [Moles/Vol] 4.3 mmol/L Normal 3.5-5.1 [facility] Comment on above: Performed By: #### C BC, BMP #### [facility] [address] [place] [address] [place] Sodium [Moles/Vol] 136 mmol/L Normal 136-145 [facility] Comment on above: Performed By: #### C BC, BMP #### [facility] [address] Urea nitrogen [Mass/Vol] 11 mg/dL Normal 7-25 [facility] Comment on above: Performed By: #### C BC, BMP #### [facility] [address] Complete Blood Count Auto Di ffon 05-12-2023 Basophils (Bld) [#/Vol] 0.0 10*3/uL Normal 0.0-0.2 [facility] Comment on above: Result Comment: PERF ORMED BY: [place] [address] PATHOLOGIST ROOFING TILE SORTER EVARISTO FLOREZ M.D. Performed By: #### C BC, BMP #### [address] Basophils/100 WBC (Bld) 0.4 % Normal . [facility] Comment on above: Performed By: #### C BC, BMP #### [facility] [address] Eosinophils (Bld) [#/Vol] 0.3 10*3/uL Normal 0.0-0.45 [facility] Comment on above: Performed By: #### C BC, BMP #### [address] Eosinophils/100 WBC (Bld) 2.5 % Normal . [facility] Comment on above: Performed By: #### C BC, BMP #### [facility] [address] Erythrocyte distribution width (RBC) [Ratio] 14.1 % Normal 11.9-15.3 [facility] Comment on above: Performed By: #### C BC, BMP #### [facility] [address] Hematocrit (Bld) [Volume fraction] 39.0 % Normal 34.0-46.4 [facility] Comment on above: Performed By: #### C BC, BMP #### [facility] [address] [place] [address] [place] Hemoglobin (Bld) [Mass/Vol] 12.7 g/dL Normal 11.8-15.4 [facility] Comment on above: Performed By: #### C BC, BMP #### [facility] [address] Lymphocytes (Bld) [#/Vol] 1.6 10*3/uL Normal 1.00-4.8 [facility] Comment on above: Performed By: #### C BC, BMP #### [facility] [address] Lymphocytes/100 WBC (Bld) 13.1 % Normal . [facility] Comment on above: Performed By: #### C BC, BMP #### [address] MCH (RBC) [Entitic mass] 27.1 pg Normal 24.7-34.3 [facility] Comment on above: Performed By: #### C BC, BMP #### [address] MCV (RBC) [Entitic vol] 83.2 fL Normal 80-100 [facility] Comment on above: Performed By: #### C BC, BMP #### [address] Mean Corpuscular HGB Conc 32.6 g/dL Normal 32.0-35.0 [facility] Comment on above: Performed By: #### C BC, BMP #### [place] [address] [place] Monocytes (Bld) [#/Vol] 0.5 10*3/uL Normal 0.0-0.8 [facility] Comment on above: Performed By: #### C BC, BMP #### [place] [address] [place] Monocytes/100 WBC (Bld) 26.23 % High 0.00-20.00 [facility] Comment on above: Result Comment: For adults in ED, MDW > 20.0 may be associated with a higher risk of sepsis during the first 12 hrs of hospital admission Performed By: #### C BC, BMP #### [facility] [address] Monocytes/100 WBC (Bld) 3.8 % Normal . [facility] Comment on above: Performed By: #### C BC, BMP #### [facility] [address] Neutrophils (Bld) [#/Vol] 9.8 10*3/uL High 1.8-7.7 [facility] Comment on above: Performed By: #### C BC, BMP #### [facility] [address] Neutrophils/100 WBC (Bld) 80.2 % Normal . [facility] Comment on above: Performed By: #### C BC, BMP #### [address] NRBC% 0.2 /100{WBC} Normal 0-0.5 [facility] Comment on above: Performed By: #### C BC, BMP #### [facility] [address] Platelet mean volume (Bld) [Entitic vol] 8.4 fL Normal 6.3-10.7 [facility] Comment on above: Performed By: #### C BC, BMP #### [facility] [address] [place] [address] [place] Platelets (Bld) [#/Vol] 382 10*3/uL Normal 150-450 [facility] Comment on above: Performed By: #### C BC, BMP #### [facility] [address] [place] [address] [place] RBC (Bld) [#/Vol] 4.70 10*6/uL Normal 3.60-5.00 [facility] Comment on above: Performed By: #### C BC, BMP #### [facility] [address] [place] [address] [place] WBC (Bld) [#/Vol] 12.2 10*3/uL High 3.8-11.6 [facility] Comment on above: Performed By: #### C BC, BMP #### [facility] [address] [place] [address] [place] Dipstick and Microscopicon 1 0- Appearance (U) Clear Normal Clear [facility] Comment on above: Order Comment: Name Collection Type:: Clean-Voided Midstream Performed By: #### C UU, ADDONUAPLUS #### [facility] [address] [place] [address] [place] Bacteria,Urine 1+ High None Seen [facility] Comment on above: Order Comment: Name Collection Type:: Clean-Voided Midstream Performed By: #### C UU, ADDONUAPLUS #### [place] [address] [place] Bilirubin,Urine Negative Normal Negative [facility] Comment on above: Order Comment: Name Collection Type:: Clean-Voided Midstream Performed By: #### C UU, ADDONUAPLUS #### [place] [address] [place] Color (U) Yellow Normal Yellow [facility] Comment on above: Order Comment: Name Collection Type:: Clean-Voided Midstream Performed By: #### C UU, ADDONUAPLUS #### [place] [address] [place] Glucose Ql (U) Normal Normal Normal [facility] Comment on above: Order Comment: Name Collection Type:: Clean-Voided Midstream Performed By: #### C UU, ADDONUAPLUS #### [facility] [address] [place] [address] [place] Hyaline Casts,Urine None Seen Normal 0-1 [facility] Comment on above: Order Comment: Name Collection Type:: Clean-Voided Midstream Result Comment: PERF ORMED BY: [place] [address] PATHOLOGIST ROOFING TILE SORTER EVARISTO FLOREZ M.D. Performed By: #### C UU, ADDONUAPLUS #### [facility] [address] [place] [address] Ketones Ql (U) Negative Normal Negative [facility] Comment on above: Order Comment: Name Collection Type:: Clean-Voided Midstream Performed By: #### C UU, ADDONUAPLUS #### [address] Leukocyte esterase Test strip Ql (U) Negative Normal Negative [facility] Comment on above: Order Comment: Name Collection Type:: Clean-Voided Midstream Performed By: #### C UU, ADDONUAPLUS #### [place] [address] [place] Nitrite,Urine Negative Normal Negative [facility] Comment on above: Order Comment: Name Collection Type:: Clean-Voided Midstream Performed By: #### C UU, ADDONUAPLUS #### [address] Occult Blood,Urine 3+ High Negative [facility] Comment on above: Order Comment: Name Collection Type:: Clean-Voided Midstream Result Comment: PERF ORMED BY: [place] [address] PATHOLOGIST ROOFING TILE SORTER EVARISTO FLOREZ M.D. Performed By: #### C UU, ADDONUAPLUS #### [facility] [address] [place] [address] [place] pH (U) 6.0 [pH] Normal 5.0-9.0 [facility] Comment on above: Order Comment: Name Collection Type:: Clean-Voided Midstream Performed By: #### C UU, ADDONUAPLUS #### [facility] [address] [place] [address] [place] Protein,Urine Negative Normal Negative [facility] Comment on above: Order Comment: Name Collection Type:: Clean-Voided Midstream Performed By: #### C UU, ADDONUAPLUS #### [place] [address] [place] RBC,Urine 20-49 High 0-4 [facility] Comment on above: Order Comment: Name Collection Type:: Clean-Voided Midstream Performed By: #### C UU, ADDONUAPLUS #### [facility] [address] [place] [address] Specificy [place],Urine 1.016 Normal 1.001-1.030 [facility] Comment on above: Order Comment: Name Collection Type:: Clean-Voided Midstream Performed By: #### C UU, ADDONUAPLUS #### [facility] [address] [place] [address] Squamous Epithelial Cell,Urine 1-2 Normal 0-2 [facility] Comment on above: Order Comment: Name Collection Type:: Clean-Voided Midstream Performed By: #### C UU, ADDONUAPLUS #### [address] Urobilinogen,Urine Normal Normal Normal [facility] Comment on above: Order Comment: Name Collection Type:: Clean-Voided Midstream Performed By: #### C UU, ADDONUAPLUS #### [address] WBC,Urine 1-2 Normal 0-4 [facility] Comment on above: Order Comment: Name Collection Type:: Clean-Voided Midstream Performed By: #### C UU, ADDONUAPLUS #### [address] US abdomen limitedon 023 US abdomen limited [facility] [place] [address] [place] [address] Ultrasound Report Signed Patient: Rufina Marvin MR#: [id number] 62 : 1990 Acct:[id number] Age/Sex: 32 / F ADM Date: 05/12/23 Loc: ER Room: Type: [facility] ER Attending Dr: Ordering Provider: Betty Geronimo DO Date of Service: 05/12/23 US/US abdomen limited: incision dehiscence Copies to: Betty Geronimo DO LIMITED ABDOMINAL ULTRASOUND: CLINICAL HISTORY: 2 weeks ago. Sudden jumped on stomach and now has bulging at incision site. Redness and rash at the incision site currently taking antibiotics. COMPARISON: None TECHNIQUE: Grayscale and color Doppler images of the area of concern was obtained. FINDINGS: Imaging in the area of incision/bulging demonstrates a complex septated collection measuring 15.7 cm in greatest dimension. No surrounding hyperemia is seen. No definitive communication is seen to the peritoneal cavity. US/US abdomen limited IMPRESSION: IMAGING IN THE AREA OF INCISION/BULLAE DEMONSTRATES A COMPLEX SEPTATED COLLECTION MEASURING 15.7 CM IN GREATEST AXIAL DIMENSION. GIVEN THE HISTORY, AN ABSCESS CANNOT BE EXCLUDED. IF NO INTERVENTION IS PERFORMED, REPEAT ULTRASOUND AFTER THERAPY IS SUGGESTED TO ENSURE RESOLUTION.. Impression dictated by: Jeff Renteria Jr., D.OClarissa05/12/2023 12:12 PM Dictation Location: [place] [address] Tech: Ashley Khan Transcribed By: CHING 05/12/23 1212 Dictated By: Jeff Renteria Jr, DO 05/12/23 1210 Signed By: 05/12/23 1212 [facility] Urine Cultureon 05-12-2023 Bacteria identified Cx Nom (U) No Growth 2 Days PERFORMED BY: [place] [address] PATHOLOGIST ROOFING TILE SORTER EVARISTO FLOREZ M.D. [facility] Comment on above: Performed By: #### C UU, ADDONUAPLUS #### [address] AFP MATERNAL FOR SPINA BIFID Aon 01-09-2023 AFP MoM See interpretation. Normal [facility] Comment on above: Performed By: #### A FPMAT #### [facility] [address] [address] [address] Chloé Reagan AFP Value 56.1 ng/mL Normal [facility] Comment on above: Performed By: #### A FPMAT #### [facility] [address] [address] [address] Chloé Reagan AFP, Serum for Spina Bifida Comment Normal [facility] Comment on above: Result Comment: The MOM and risk factors of this report have been modified based on new information supplied to us by the client or their designated inside account representative. Note that the gestational ages on the original report and this recalculated report differ by less than 10 days. Recalculations are not recommended when gestational dating by LMP and ultrasound are within 10 days. The Gestational Age was changed from Not provided. to 5.0. This is a corrected report. The previously reported result was: Results Report 12/31/2022 Performed By: #### A FPMAT #### [facility] [address] [place] [address] Dr. Chloé Reagan Comment Comment Normal [facility] Comment on above: Result Comment: Hemalatha Parker, Ph.D., [facility] Director . References: Available Upon Request. . Multiples Of Median Cutoffs For AFP Elevations Peace 2.5 Black 2.8 IDD 2.0 Twins 4.5 Abbreviation Definitions IDD - Insulin Dep Diabetes OSBR - Open Spina Bifida Risk . For further inquiries contact [employer] at [phone]. . This test was developed and its performance characteristics determined by [employer]. It has not been cleared or approved by the Food and Drug Administration. Performed By: #### A FPMAT #### [facility] [address] [place] [address] Dr. Chloé Reagan Gest Age Collection Date 5.0 weeks [facility] Comment on above: Result Comment: This is a corrected report. The previously reported result was: Gest. Age on Neo... 12/31/2022 Not provided. . Performed By: #### A FPMAT #### [facility] [address] [place] [address] Dr. Chloé Reagan Gestat, Age Based on As provided Normal [facility] Comment on above: Result Comment: Reca lculations are not recommended when gestational dating by LMP and ultrasound are within 10 days. Performed By: #### A FPMAT #### [facility] [address] [place] [address] Dr. Chloé Reagan Insulin Dep Diabetes No Normal [facility] Comment on above: Performed By: #### A FPMAT #### [facility] [address] [place] [address] Dr. Chloé Reagan Interpretation Comment Normal [facility] Comment on above: Result Comment: Inte rpretation: An interpretation CANNOT be provided for this patient due to one of the following reasons: 1. Gestational age is <15 weeks. Please submit a second sample at the optimum gestational age for screening (16-18 weeks). OR 2. Gestational age is greater than 23 weeks. This is a corrected report. The previously reported result(s) were: Test Result Date First Reported Updates reported on: 01/09/2023 12:24 PM INTERP 12/31/2022 4:12 PM Interpretation: An interpretation CANNOT be provided for this patient because necessary patient information was not provided (one or more of: gestational age, weight, or patient age). Please call us with new clinical information. This is a corrected report. The previously reported result was: Interpretation 12/31/2022 Interpretation: An interpretation CANNOT be provided for this patient because necessary patient information was not provided (one or more of: gestational age, weight, or patient age). Please call us with new clinical information. Performed By: #### A FPMAT #### [facility] [address] [place] [address] Dr. Chloé Reagan [age] [facility] Comment on above: Result Comment: This is a corrected report. The previously reported result was: [age] 12/31/2022 Performed By: #### A FPMAT #### [facility] [address] [place] [address] Dr. Chloé Reagan Multiple Gestation No Normal [facility] Comment on above: Performed By: #### A FPMAT #### [facility] [address] [place] [address] Dr. Chloé Reagan OSBR Risk 1 IN See interpretation. Normal [facility] Comment on above: Performed By: #### A FPMAT #### [facility] [address] [place] [address] Dr. Chloé Reagan PDF . Normal [facility] Comment on above: Performed By: #### A FPMAT #### [facility] [address] [address] [address] Chloé Reagan Race Normal [facility] Comment on above: Performed By: #### A FPMAT #### [facility] [address] [address] [address] Chloé Reagan Test Results: See interpretation. Normal e [facility] Comment on above: Performed By: #### A FPMAT #### [facility] [address] [address] [address] Chloé Reagan US PREG CERVICAL LENGTHon US PREG CERVICAL LENGTH EXAMINATION: US PREG ANATOMY SINGLE, US PREG CERVICAL LENGTH HISTORY: anatomy study COMPARISON: Ultrasound transvaginal 09/27/2022 TECHNIQUE: Transabdominal sonographic examination was performed for obstetrical and evaluation. FINDINGS: Number: 1 Heart Rate: 148.0 bpm H.B. /min Amniotic Fluid Volume: Subjectively normal Placental Location: Anterior with lower margin 8.1 cm from os. Cervix Length: 4.5 cm, closed. ANATOMY: Normal Structures -cerebellum, choroid plexus, cisterna magna, lateral cerebral ventricles, orbits, midline falx, hard palate, four-chamber heart, RVOT, LVOT, stomach, kidneys, bladder, umbilical cord insertion into abdomen, three-vessel cord, cervical spine, thoracic spine, lumbar spine, sacral spine, right upper extremity, left upper extremity, right lower extremity, left lower extremity. SUBOPTIMALLY SEEN: Cerebellum, posterior fossa, hard palate, three-vessel cord ABNORMALITIES: None BIOMETRY: BPD: 4.3 cm 19 weeks 0 days HC: 15.7 cm 18 weeks 4 days AC: 15.3 cm 20 weeks 4 days FL: 3.1 cm 19 weeks 3 days EFW:316.4 grams; 23% FL/AC: 19.9 FL/BPD: 71.3 HC/AC: 1.0 GESTATIONAL AGE: Age by EDC: 20 weeks 2 days CHALO by EDC: 05/04/2023 Age by current US: 19 weeks 3 days CHALO by current US: 05/10/2023 IMPRESSION: 1. Single live intrauterine with growth detailed above. 2. Suboptimal visualization of the posterior fossa, cerebellum, hard palate, and three-vessel cord due to position. Electronically authenticated by: RYAN ASHER Date: 2022-12-17 15:17 Normal [facility] HEP B SURFACE ANTIGEN SCREEN on 10-25-2022 HBsAg Screen Negative Normal Negative [facility] Comment on above: Performed By: #### H BSANS #### [facility] [address] [address] [address] Chloé Reagan HEPATITIS C VIRUS AB W/ REFL EX QUANTon 10-25-2022 Interpretation: Comment Normal [facility] Comment on above: Result Comment: Not infected with HCV unless early or acute infection is suspected (which may be delayed in an immunocompromised individual), or other evidence exists to indicate HCV infection. Performed By: #### H CVPCRR #### [facility] [address] [address] [address] Chloé Reagan HCV AB Non-Reactive Normal Non Reactive [facility] Comment on above: Performed By: #### H CVPCRR #### [facility] [address] [address] [address] Chloé Reagan HIV 1 AND 2 WITH REFLEXon HIV Screen 4th Generation wRfx Non-Reactive Normal Non Reactive [facility] Comment on above: Result Comment: HIV Negative HIV-1/HIV-2 antibodies and HIV-1 p24 antigen were NOT detected. There is no laboratory evidence of HIV infection. Performed By: #### H IV12 #### [facility] [address] [place] [address] Dr. Chloé Reagan RPR QUANTon 10-25-2022 Rapid Plasma Reagin, Quant Non-Reactive Normal NonRea<1:1 [facility] Comment on above: Result Comment: Plea se Note: This test does not meet current guidelines for screening and diagnosis of syphilis. This test is intended for following treatment response in patients being treated for syphilis infection. To screen for syphilis infection, a reflex cascade that includes both RPR and a treponema-specific assay should be utilized, such as Treponema pallidum (Syphilis) Screening [place] (589736) or Rapid Plasma Reagin (RPR) Test With Reflex to Quantitative RPR and Confirmatory Treponema pallidum Antibodies (846641). Performed By: #### R PRQ ####[facility] [id number] [address]. Chloé Reagan RUBELLA AB IGGon 10-25-2022 Rubella Antibodies, IgG <0.90 Critically low Immune >0.99 [facility] Comment on above: Result Comment: Non- immune <0.90 Equivocal 0.90 - 0.99 Immune >0.99 Performed By: #### R UBIGG #### [facility] [address] [address] [address] Chloé Reagan CBC AUTO DIFFon 10-24-2022 BASO # 0.0 103/ul Normal 0.0-0.1 [facility] Comment on above: Performed By: #### C BC #### [facility] [address] [place] [address] Dr. Chloé Reagan Basophils/100 WBC (Bld) 0.3 % Normal 0.2-2.0 [facility] Comment on above: Performed By: #### C BC #### [facility] [address] [place] [address] Dr. Chloé Reagan EO # 0.1 103/ul Normal 0.0-0.7 [facility] Comment on above: Performed By: #### C BC #### [facility] [address] [place] [address] Dr. Chloé Reagan Eosinophils/100 WBC (Bld) 0.7 % Critically low 0.9-7.0 [facility] Comment on above: Performed By: #### C BC #### [facility] [address] [place] [address] Dr. Chloé Reagan Erythrocyte distribution width (RBC) [Ratio] 12.7 % Normal 11.0-15.0 [facility] Comment on above: Performed By: #### C BC #### [facility] [address] [place] [address] Dr. Chloé Reagan Hematocrit (Bld) [Volume fraction] 39.4 % Normal 36.0-48.0 [facility] Comment on above: Performed By: #### C BC #### [facility] [address] [place] [address] Dr. Chloé Reagan Hemoglobin (Bld) [Mass/Vol] 12.9 g/dL Normal 12.0-16.0 [facility] Comment on above: Performed By: #### C BC #### [facility] [address] [place] [address] Dr. Chloé Reagan IG # 0.04 10e3/ul Critically high 0.00-0.03 [facility] Comment on above: Performed By: #### C BC #### [facility] [address] [place] [address] Dr. Chloé Reagan IG % 0.3 % Normal 0.0-0.5 [facility] Comment on above: Performed By: #### C BC #### [facility] [address] [place] [address] Dr. Chloé Reagan LYMPH # 2.8 103/ul Normal 1.2-3.8 [facility] Comment on above: Performed By: #### C BC #### [facility] [address] [place] [address] Dr. Chloé Reagan Lymphocytes/100 WBC (Bld) 24.2 % Normal 20.5-60.0 [facility] Comment on above: Performed By: #### C BC #### [facility] [address] [place] [address] Dr. Chloé Reagan MANUAL DIFF REQ NO Normal [facility] Comment on above: Performed By: #### C BC #### [facility] [address] [place] [address] Dr. Chloé Reagan MCH (RBC) [Entitic mass] 28.0 pg Normal 26.7-34.0 [facility] Comment on above: Performed By: #### C BC #### [facility] [address] [place] [address] Dr. Chloé Reagan MCHC (RBC) [Mass/Vol] 32.7 g/dL Normal 29.9-35.2 [facility] Comment on above: Performed By: #### C BC #### [facility] [address] [place] [address] Dr. Chloé Reagna MCV (RBC) [Entitic vol] 85.7 fL Normal 81.0-99.0 [facility] Comment on above: Performed By: #### C BC #### [facility] [address] [place] [address] Dr. Chloé Reagan MONO # 0.5 103/ul Normal 0.3-0.8 [facility] Comment on above: Performed By: #### C BC #### [facility] [address] [place] [address] Dr. Chloé Reagan Monocytes/100 WBC (Bld) 4.4 % Normal 1.7-12.0 [facility] Comment on above: Performed By: #### C BC #### [facility] [address] [place] [address] Dr. Chloé Reagan NEUT # 8.2 103/ul Critically high 1.4-6.[address] [facility] Comment on above: Performed By: #### C BC #### [facility] [address] [place] [address] Dr. Chloé Reagan Neutrophils/100 WBC (Bld) 70.1 % Normal 43.0-75.0 [facility] Comment on above: Performed By: #### C BC #### [facility] [address] [place] [address] Dr. Chloé Reagan Platelet mean volume (Bld) [Entitic vol] 9.7 fL Normal 9.5-13.5 [facility] Comment on above: Performed By: #### C BC #### [facility] [address] [place] [address] Dr. Chloé Reagan PLT 342 103/ul Normal 150-450 [facility] Comment on above: Performed By: #### C BC #### [facility] [address] [place], [place] [id number] Dr. Chloé Reagan RBC 4.60 106/ul Normal 4.20-5.40 [facility] Comment on above: Performed By: #### C BC #### [facility] [address] [place] [address] Dr. Chloé Reagan WBC 11.7 103/ul Critically high 4.0-11.0 [facility] Comment on above: Performed By: #### C BC #### [facility] [address] [address] [address] Chloé Reagan CULTURE URINEon 10-24-2022 CULTURE URINE Culture Observations : MODERATE GROWTH OF MIXED GENITAL LAZARA. NO POTENTIAL PATHOGENS SEEN. Normal [facility] Comment on above: Performed By: #### U RCX ####[facility] [id number] [address]. Chloé Reagan GLYCOHEMOGLOBIN A1Con 2022 ADA RECOMMENDATION SEE BELOW Normal [facility] Comment on above: Result Comment: ADA RECOMMENDED LIMIT 4.0 - 6.0 ADA THERAPEUTIC TARGET < 7.0 ACTION SUGGESTED > 7.0 Performed By: #### A 1C #### [facility] [address] [place] [address] Dr. Chloé Reagan Glucose [Mass/Vol] 103 mg/dL Normal [facility] Comment on above: Performed By: #### A 1C #### [facility] [address] [place] [address] Dr. Chloé Reagan HbA1c (Bld) [Mass fraction] 5.2 % Normal 4.5-6.2 [facility] Comment on above: Performed By: #### A 1C #### [facility] [address] [place] [address] Dr. Chloé Reagan TSHon 10-24-2022 TSH 1.023 uIU/mL Normal 0.358-3.740 [facility] Comment on above: Performed By: #### T SH #### [facility] [address] [place] [address] Dr. Chloé Reagan TYPE AND SCREENon 10-24-2022 TYPE AND SCREEN Negative Normal [facility] Comment on above: Performed By: #### T NS ####[facility] [id number] [place], [place] [address]Dr. Chloé Reagan US PREG TVon 09-27-2022 US PREG TV EXAMINATION: US PREG TV HISTORY: Irregular periods COMPARISON: No relevant comparison available. FINDINGS: GESTATIONAL SAC: Present and normal appearing. YOLK SAC: Present and normal appearing. POLE: Present and normal appearing. CARDIAC: Present. UTERUS: Small subchorionic hematoma, 3.3 x 2.0 x 1.8 cm. OVARIES: Right: Corpus lutein cyst. Left: Normal. CERVIX: 4.0 cm in length and closed. CUL-DE-SAC: Normal. OTHER: None. AGE BY LMP: 8 weeks 5 days CHALO BY LMP: 05/04/2023 AGE BY US CRL: 8 weeks 0 days CHALO BY US CRL: 05/09/2023 IMPRESSION: 1. Single live intrauterine . Electronically authenticated by: RYAN ASHER Date: 2022-09-27 15:05 Normal [facility] Family Medicine Office/Clini c Noteon 04-06-2022 Family Medicine Office/Clinic Note Chief Complaint EST bilateral ear pain, plugged HPI Staff Patient 31 yo female presents with ear pain Onset- since December worse last 2 wks Fevers: no Sinus congestion: yes in the beginning with dizziness, headaches Sneezing: no Ear pain: both Ear itching, popping, fullness, ringing, muffled hearing: muffled Ear drainage: no Sore throat: no Ear pain worse with chewing: no DIfficulty hearing: muffled Treatment- swimmers ear,peroxide History of Present Illness I have reviewed and verified the staff HPI to be accurate for this encounter. Patient presents in office today with complaints of ear pain x 2 weeks. Patient reports that she has had ear pain intermittently since December, but has worsened over the last 2 weeks. She reports bilateral ear muffled hearing, pain, pressure, headaches, occasional dizziness especially with fast position changes. Denies fever, chills, fatigue, nasal symptoms, ear drainage, sore throat, cough, chest pain, shortness of breath or wheezing, GI symptoms, urinary changes. No known COVID or sick exposures. No new loss of taste or smell. Patient is COVID vaccinated x2, last dose August 2020. Patient is using swimmer's ear drops and peroxide at home with minimal relief of symptoms. Patient is also trialed using Tylenol, ibuprofen, Excedrin, Sudafed with mild temporary improvement of symptoms. Review of Systems PHQ Score Initial Depression Screen Score: 0 allergies/increased congestion initially dizzy with positional changes spotty vision tylenol/ibuprofen/exc edrin sudafed claritin/flonase Physical Exam Vitals & Measurements T: 37.1 ?C(Oral) HR: 72(Peripheral) BP: 110/72 SpO2: 98% HT: 167.0 cm HT: 167 cm WT: 91.0 kg WT: 91 kg BMI: 32.63 General: _ Pleasant, obese female in no acute distress. Ears: _No pain on manipulation of the bilateral external ears. Bilateral external auditory canals are intact without erythema, edema, or drainage. Right TM appears intact, dull, clear effusion noted posteriorly. Left TM appears mildly erythematous with clear effusion noted posteriorly. Nose: mild nasal mucosa inflammation and edema Mouth: Mucous membranes moist. Normal oropharynx, and posterior pharynx without lesions or exudates. Tongue normal mild erythema of the posterior pharynx, tonsils 3+. Neck: shotty anterior cervical nodes bilaterally Lungs: clear to auscultation throughout, no wheezing, no rales. No respiratory distress Cardio: regular rate and rhythm, no murmur Mental Status: Alert and oriented x3. Normal mood and affect Assessment/Plan 1. Acute otitis media, left (H66.92: Otitis media, unspecified, left ear) Given history and exam, will treat with amoxicillin. Finish course. Fluids/rest, PRN tylenol/ibuprofen for pain and/or fever encouraged. Start Claritin and Flonase at home. Discussed other cold symptoms remain viral in nature- typical duration 7-14 days. May use Sudafed, Flonase for symptomatic tx. Encouraged to follow up with PCP for recheck in about 5 days to ensure infection resolving, especially if symptoms worsening or fevers. Patient verbalized understanding of treatment plan. Ordered: amoxicillin, 500 mg = 1 cap(s), Oral, q12hr, X 10 day(s), # 20 cap(s), Refills(s) 0, Pharmacy: [facility], 167, cm, 04/05/22 18:37:00 EDT, Height/Length Dosing, 91, kg, 04/05/22 18:37:00 EDT, Weight Dosing 2. BMI 32.0-32.9,adult (Z68.32: Body mass index [BMI] 32.0-32.9, adult) The standard range for ages 18 and older is >=18.5 and < 25 kg/m2. Your BMI today was above this range, this falls in the overweight to obese category and there are medical benefits to weight loss. We can offer counselling, referral, and/or medical support in addressing this problem. Your BMI and weight management will be followed at subsequent visits. Ordered: Body Mass Index (BMI) documented 3008F Follow-up With When Contact Information Nathan MCGUIREMary Kate [address] [place] [address], [address] [place] [address]- Additional Instructions: Patient Education Otitis Media, Adult BMI for Adults Problem List/Past Medical History Ongoing Anxiety Cervical dysplasia HPV (human papilloma virus) Historical No qualifying data Procedure/Surgical History Cervical cone Biopsy (2018), back surgery lypomas removed, section. Medications amoxicillin 500 mg Cap, 500 mg= 1 cap(s), Oral, q12hr folic acid 0.4 mg Tab, 0.4 mg= 1 tab(s), Oral, Daily, Not taking MetFORMIN (Eqv-Glucophage XR) 500 mg oral tablet, extended release Mirena, 1 EA, IntraUteral, Once, Not taking [place] Fe 08/31 EQ oral tablet, Oral, Daily, Not taking Xanax 0.25 mg Tab, 0.25 mg= 1 tab(s), Oral, Bedtime, Not taking Allergies Bee Stings (Anaphylaxis) Social History Alcohol - Low Risk, 03/05/2018 Current, 10/24/2018 Substance Abuse - Denies Substance Abuse, 01/02/2018 Current, 10/24/2018 Tobacco - Denies Tobacco Use, 01/02/2018 Never (less than 100 in lifetime) Tobacco Use:. Never S (more content not included)... Normal [facility] Comment on above: Result Comment: Elec tronically Signed By: OMAYRA Lau APRN, [place] X\.br\Date and Time Signed: 04/06/22 10:42 EDT Patient Educationon 04-06-20 22 Patient Education ENT Otitis Media, Adult Otitis media occurs when there is inflammation and fluid in the middle ear. Your middle ear is a part of the ear that contains bones for hearing as well as air that helps send sounds to your brain. What are the causes? This condition is caused by a blockage in the eustachian tube. This tube drains fluid from the ear to the back of the nose (nasopharynx). A blockage in this tube can be caused by an object or by swelling (edema) in the tube. Problems that can cause a blockage include: ? A cold or other upper respiratory infection. ? Allergies. ? An irritant, such as tobacco smoke. ? Enlarged adenoids. The adenoids are areas of soft tissue located high in the back of the throat, behind the nose and the roof of the mouth. ? A mass in the nasopharynx. ? Damage to the ear caused by pressure changes (barotrauma). What are the signs or symptoms? Symptoms of this condition include: ? Ear pain. ? A fever. ? Decreased hearing. ? A headache. ? Tiredness (lethargy). ? Fluid leaking from the ear. ? Ringing in the ear. How is this diagnosed? This condition is diagnosed with a physical exam. During the exam your health care provider will use an instrument called an otoscope to look into your ear and check for redness, swelling, and fluid. He or she will also ask about your symptoms. Your health care provider may also order tests, such as: ? A test to check the movement of the eardrum (pneumatic otoscopy). This test is done by squeezing a small amount of air into the ear. ? A test that changes air pressure in the middle ear to check how well the eardrum moves and whether the eustachian tube is working (tympanogram). How is this treated? This condition usually goes away on its own within 3?5 days. But if the condition is caused by a bacteria infection and does not go away own its own, or keeps coming back, your health care provider may: ? Prescribe antibiotic medicines to treat the infection. ? Prescribe or recommend medicines to control pain. Follow these instructions at home: ? Take eela-oyf-ttcgjor and prescription medicines only as told by your health care provider. ? If you were prescribed an antibiotic medicine, take it as told by your health care provider. Do not stop taking the antibiotic even if you start to feel better. ? Keep all follow-up visits as told by your health care provider. This is important. Contact a health care provider if: ? You have bleeding from your nose. ? There is a lump on your neck. ? You are not getting better in 5 days. ? You feel worse instead of better. Get help right away if: ? You have severe pain that is not controlled with medicine. ? You have swelling, redness, or pain around your ear. ? You have stiffness in your neck. ? A part of your face is paralyzed. ? The bone behind your ear (mastoid) is tender when you touch it. ? You develop a severe headache. Summary ? Otitis media is redness, soreness, and swelling of the middle ear. ? This condition usually goes away on its own within 3?5 days. ? If the problem does not go away in 3?5 days, your health care provider may prescribe or recommend medicines to treat your symptoms. ? If you were prescribed an antibiotic medicine, take it as told by your health care provider. This information is not intended to replace advice given to you by your health care provider. Make sure you discuss any questions you have with your health care provider. Document Released: 05/03/2005 Document Revised: 07/11/2018 Document Reviewed: 07/19/2017 [email or web address] Patient Education ? 2020 [employer]. Nutrition BMI for Adults Body mass index (BMI) is a number that is calculated from a person's weight and height. BMI may help to estimate how much of a person's weight is composed of fat. BMI can help identify those who may be at higher risk for certain medical problems. How is BMI used with adults? BMI is used as a screening tool to identify possible weight problems. It is used to check whether a person is obese, overweight, healthy weight, or underweight. How is BMI calculated? BMI measures your weight and compares it to your height. This can be done either in [place] or metric measurements. Note that charts are available to help you find your BMI quickly and easily without having to do these calculations yourself. To calculate your BMI in [place] measurements, your health care provider will: 1. Measure your weight in pounds (lb). 2. Multiply the number of pounds by 703. ? For example, for a person who weighs 180 lb, multiply that number by 703, which equals 126,540. 3. Measure your height in inches (in). Then multiply that number by itself to get a measurement called inches squared. ? For example, for a person who is 70 in tall, the inches squared measurement is 70 in x 70 in, which equals 4900 inches squared. 4. Divide the to (more content not included)... Normal Mario [facility] Ambulatory Visit Summaryon 0 04-05-2022 Ambulatory Visit Summary RUFINA MARVIN :1990 Visit Date:04/05/2022 Ambulatory Visit Instructions Your Diagnosis Acute otitis media, left BMI 32.0-32.9,adult Your Care Team Attending Physician - OMAYRA Lau APRN, Jo-Ann Smith Primary Care Physician - Mary Kate Evans CNP This Is Your Medications List amoxicillin (amoxicillin 500 mg Cap) Contact prescribing physician if questions or concerns alprazolam (Xanax 0.25 mg Tab) ethinyl estradiol-norethindro ne ([place] Fe 1/20 EQ oral tablet) folic acid (folic acid 0.4 mg Tab) levonorgestrel (Mirena) metformin (MetFORMIN (Eqv-Glucophage XR) 500 mg oral tablet, extended release) Procedures Performed Cervical cone Biopsy (2018), back surgery lypomas removed, section. Discharge Vitals Temperature (Oral) 37.1 ?C Heart Rate (Peripheral) 72 Blood Pressure 110/72 Height 167.0 cm Height 167 cm Weight 91.0 kg Weight 91 kg BMI 32.63 Medications What How Much When Why Instructions New amoxicillin (amoxicillin 500 mg Cap) 1 Capsules By Mouth Every 12 hours Acute otitis media, left Duration: 10 Days Pickup at [facility] Unchanged alprazolam (Xanax 0.25 mg Tab) 1 Tablets By Mouth At bedtime Contact prescribing physician if questions or concerns Unchanged ethinyl estradiol-norethindro ne ([place] Fe 1/ 20 EQ oral tablet) By Mouth Every day Contact prescribing physician if questions or concerns Unchanged folic acid (folic acid 0.4 mg Tab) 1 Tablets By Mouth Every day Contact prescribing physician if questions or concerns Unchanged levonorgestrel (Mirena) 1 Each Intrauteral Once Contact prescribing physician if questions or concerns Unchanged metformin (MetFORMIN (Eqv-Glucophage XR) 500 mg oral tablet, extended release) Contact prescribing physician if questions or concerns Pharmacy Information [facility]: [address] [place] [id number] [phone] Allergies Bee Stings (Anaphylaxis) Problems Ongoing - Any problem that you are currently receiving treatment for. Anxiety Cervical dysplasia HPV (human papilloma virus) Normal [facility] Coding Summary.on 01-04-2022 Coding Summary. [id number] G h0bWw+PGhlYWQ+PX8WUJR bP93tkJIejO8OX2fRAN7W CBUNALIDRB7XZS1fuEF0K VueS6KlqaVy PrlhrXIzZB93GDe5EBD7k HipVJlgzG1nkPZgF2x7Yg UfZS64aT33ZBhkZYDqZjG 3LjZpbjsgbWFy A8ofVzLeyWTaNfx+PHRhY mxlIHdpZHRoPScxMDAlJy WllOwoTH8oWa6yATMnWYZ vbGxhcHNlOiBj d1dwMHLtSFgpLV8wvHayV 1PfeBY7BWJgj0f7Ay18nQ I+YQAlEQR4vElmACbww38 5ArSek9tuICG9 nWUlHZgfLMW8P00nm5N7K AMbIKFgKVT0rSJ8eG2kwO ioveerZ0HigVDmPqV6KBU 1oFXwaG3eoEfm qremsN4rJxz+Q05RXW2GP JZZDW1KAap7V9CtAoffjW I+EG25AMLaAY97aSGtoVJ te6iybIj9BfGd NRFiYYW9vDwhXZfiq6YiJ MQzK99usUZzl6A3WMRyqG tzzXFwNzPimMN7oU3tNAp xtwaja6ejdgcd Jmxat6dutp54tI21L69uS EiyBUJmFAJ9EDEeUHUmzX rfes7xtL1sRx1+HYwpm2i eb3jqdTa2AiFf ZXCadkFisFdvKXY1c8ZoP a30I4HqtRbcs4QaJuf3yo 88wPXes6T2jWZ4WOwzTQQ sdA3rJSwzXeI9 AAXsQmTqiJ19cLTzOOczN i0daMgqsLzmAR9wZLFyds xyFAZscA7zYTMscVNamRr tMH5fIDKkaqsm k263IkAuVWU9FOFsdTOjU 3JxqM5hCmRuQQYuLJOiJ3 CedPQnICgjG190ENwwYiZ 9GUPbjdVoQ2Jt QLRvvNxqVbU8b0D8Nc5Mg 1SvzihxCMK5KSthKXU8Vs R4NoKcJgA8T6ZmZcm5VYD pqNuzWG5aL0My VNItzssuekopzRO6LMPlO OYdtK24qWFxHNtdGq5xl8 X7a678QTJzADTbtC22La5 udDogMTBwdCBU lI8ndtkiz4tqegudNkWaW OEaTNi3VGo5RFTqtCluSo RmZSC6BxF5OHL7dZCqrI6 uqIwaaouejJ7a Oyc+S88emG8wTXW1IIS4q zuqKCSixoXeQS40VV11O0 RyPjwvdGFibGU+PGRpdiB gzNglKR3hWlSs a6kce3TlQGycC8YaPXYkQ MvfBgq1KCUdQYT3eRA0oY 9uJLPiOCjdt9I6kFD7U0L qmhNazc0os5hv JSJoPLcpL35wrKKro4V2Z SIppOU9DLQnoSdjBeQttZ 93Oyc+KUHhbJgod7HhSuh om6neg6aqrRz4 AbMlMRTaucWcpZqnAFE6w 9OgSn76A34zVNvmFEDgLE HfMPSoGCKjjSrqro5cpV5 wIi8+PGNvbCB3 pCA7fN0wOCZwIoO2EBncW 532FwBweZOgGsnzd0meo7 eheOy3IeAzILOqhvUpbPi zMVK9l5AjUm28 L94bATefZTYjOEBbUFJpK LApvTafng9fyL4pMx3+PC 4qh4vqhx40oS76eCW+PHR bKQO1vYpgEBkw MSToeB9hBQmyNnE7RLMxM rYweS75kUHaIJvrMa3ltS qnpXivFD1zMLNdtwqrr12 3NhAdw1wiTSBp bBAmFQmzNLI8U86fm6K3I QEzDPMdUHQ7eVW4xX9wwO lnbjogbGVmdDsgdmVydGl lEJbxCNwyG379 IHRvcDsnPlBhdGllbnQgT zKbUKm9M2LdZmk9QDNokI ggEA4obLMiSOfnMz1paLg mjVhfTD0wHLLt lsfig511IwHru9hdHLKld FQfRKrhIOP2K44ho3Q3GZ LjWBRrSNC4cFL2aL6xlNx nbjogbGVmdDsg lzVgcSsoEIwvTMekJ036B HRvcDsnPkJpcnRoIERhdG U3VA79DB85qFHla0L9rDK 9T7JlMXFzjoyi kakpsDJ2CWWySQZlhA98Y m4rxSrgWk7yZFBcYZJ0FB EvbVVkQ7QzdK6bGfFoYML nWOMiR3BwjLYc QXprC304DXuyQuT6PVSza yBxC7WgJHQstMcdPvD3w4 X1Xy1OQ6C7ZR40SZ45aKF ly3I9yWD7F3Op ENGxikdklpiawCB2HRZjD GDosR50Um0ffQvrTq9jYV ZkJOJ3USOkhEHnU0GgjU3 yOiAjMDAwMDAw N7XvnKZcUHivK331PLuiM qJ7XZQgkzHmC4TeMJPkcB xtQzU6u1K2We5SYRx1RG8 9AX20dSNlf3P8 vIO1Z7DdMOCugkswfdjaz VD1VAGxUCChxN91Qs5kgK viGp3yJLAmKLI6QFCyvCT hE2PxvP7uMmIi MIDkBBFsQ8ShaLXdLJrbT 086IEaoSwI8HGNudeMxJ4 XpZTKebGhrXiO3k7Y6Px8 RSRAuPE02JXP9 mQL7CO66NT12Z3YkArcku GFibGU+PHRhYmxlIHdpZH RoPScxMDAlJyBzdHlsZT0 aDq3tIGBrWSFv fQkzyJCqRuBzu4urULMxS FydQZ9dwYbiB3RgsYK8UV Rtc4e1Xl19H87xX4SryOJ +LYOxuMV9gAC0 pU6lDwKuAiN9SKufA369D lTbhOAgQrrfr6zwz9cocP j9JgY9EETefyHcsOrtKAN 8b3ObOx52Q70b IHdpZHRoPSIxNSUiIHZhb Zfhhd6usH0aLz5+PGNvbC U4oML8eR8jMxWgIuM1KNi yP914SxItwANs Ejeqf1uzk6qutTu4GqKfB EFhnpAjsQfdTOO3t7LfKd 78B2HqoXggf9TsOyn1ml8 9lZGgx6A9kXI8 X0UkGHZzzqtdtAVamMybC L6aHUMrgwygILHiqW7pPV BkS8u7McEdNxB5JLwnG8E xsdY1TLBwvNGf EIfjPNK2I73db0A7AHIsS COzMAP8vDE9lC1ziGddot ogbGVmdDsgdmVydGljYWw lQMpzA692UNRo oUjzBIUwrR4cHTAokUJpg SnzCA9iXGCvlsleTlHNLh NPLCBIQVlMRVkgUjwvdGQ +ONMfKFY9zQwz FXjySTFvqK0xONIhJ4q8P dMfIqF0DBfaQ3WsDGKkbt nxWt47jT9vTbUwIsL5TAc zI8RbajU5XBCp eOZlSJmjXKU7Y45hw1T4L AZvHFPdRHH6xZC7wI3kbS lnbjogbGVmdDsgdmVydGl lMOioBWyfO419 NGVeoRdkJdMiTqP4ZyK1K SU9I6ObUiu2SSCjeJvkFA 5rgUXuYNipTq3boSzsjVl tDB0bOPFnfijm TJDazC6yBRVrlXMxkQrqN C1aCYUrpuojx908CsIfGL X2YRXpeEFaK2SegS3zSwU aQUIkXVRsO6Mb aPWjVHrbM683FJxlIcF1M LJcscNgT0UxJSOplVnvIh W8k9V9Ef9sUXZSCWNnxeg vdGQ+PHRkIHN0 nXwfDAdoEDDqcM3rZNNvS 9h0KiRwNzV6IOkoZ1VeDC GoeftsTw01iL5cAyPaEwY 7RWhsA3OgxlI1 LWKrvZUwCSxsOES6X57xo 8D7VBRiJQVfWGT6fJQ2yM 1hbGlnbjogbGVmdDsgdmV ydGljYWwtYWxp S619ISMrwRyoBsKotWHxY TwvdGQ+ASZiMBI9kBgbDQ ugUFQrkQ6cOEAyF3m7SkQ jUzZ4RRqpN7Pn LTPejlmzQw13eP8fSkUjI fH7WLktT1MlpxV1HNDisA ZlXKpaMWC3Z70gy3O1CBI mDLOkGMN0fFV4 dI3ubMgdtaxjxPFqpIzcc nHmlTrlEZkeHQffA921XE UyuOrjDi41zRQilExukdB 9C7AuDgflkNV+ XR10CGHmCP84nAYoxDZdq 9mllXk6YeUwZWWlSRU8oR vzWAgmg1JaYXXtK28umKY ij7T9CFJjvThe tFUoMqJpfNL2lV7bLSmsh ltlu0wrocqdImpzt7daqr 62sQ79X75nVBqqVBIkKOM zMCUiIHZhbGln gp1fhP2eDt6+ZRQmnJO8p LL6uV8pUbBzYbX9FJwqR9 29FlRpyDGeUumfi2brq4s ceUc4LhOgSWEg exZwqJsrVFD1j5JlZp07S 29sIHdpZHRoPSIyMCUiIH WllNtlwx4idU9yBj8+PC9 pb2bijq94sR28 dHI+CRVbMCU3fJkfSHgtV KVikO9oBRosLnK9FLLbLn RwdH02eGJfYJcxYz3paYa hqRysBH5eGLDg buwlj164QbImk1ldQTRtd AWfVKvlIVJ1K97su9W8VO YuBPLqIOA5eUM5dR2aeTk nbjogbGVmdDsg kqSqdMumCVgaGQmjJ608A JUnoVazQxPejVJaF1onzd ACWW4pKmnecED+PHRkIHN 0eWxlPSdwYWRk qO6uGOObL0j3PvFoBfH8W UahB0UtgyI0DOAyiHRyVT YkpOORlD9xxzawy3tqmwe gIzAwMDAwMDt0 SVu2KDIjvJbmQhIbMJP0C tQ3PLS6cMGkrQ4znYbmdr qjaY5fUhb+RklOOjwvdGQ +IMOrAHE8rWrf OXdaKXVjtD1xDATbR8u1E iFiJaY7KIanM3AehyU4LT SixTLnXETbbMIIjU8jwti qz7jwjxugQrRy PZCwYHt3PPo6QNWwnOzaZ oLkXCW6UsL1VAY4oLAevA 8btDyqvftcvS5tLhf+TVJ OOjwvdGQ+PHRk LPW8oSnwKTacGGLhnD5eS UZqA3h9NgRnEpM5QVxxV1 QsrzO9WCKnbZUlWWAmzMD AlY0pynqhr5na znifKmRhJWZpOFz1KVf3V KGhrFlgSfMtONZ9LwJ2KS I8lJTvaL6kiGydwdzzaW6 wOyc+MGW8PDZ2 ED20CT63N2QjZreckYHcz +PHRhYmxlIHdpZHRoPS uvVDUfVhYssEfjST3hMo7 yZGVyLWNvbGxh cHNl (more content not included)... Normal [facility] BnzT8puq 12-26-2021 HbA1c (Bld) [Mass fraction] 5.3 % Normal <=5.9 [facility] Comment on above: Performed By: #### 7 [id number], [id number], [id number], [id number] #### [facility] [address] [place] [address] Auto Diffon 12-25-2021 Basophils/100 WBC (Bld) 0.6 % Normal 0.0-2.0 [facility] Comment on above: Order Comment: Order Added by Discern Expert. Performed By: #### 7 [id number], [id number], [id number], [id number] #### [facility] [address] [place] [address] Basophils/Leukocytes Auto (Bld) [Pure # fraction] 0.0 E9/L Normal 0.0-0.2 [facility] Comment on above: Order Comment: Order Added by Discern Expert. Performed By: #### 7 [id number], [id number], 7550136, [id number] #### [facility] [address] [place] [address] Eosinophils/100 WBC (Bld) 1.6 % Normal 0.0-8.0 [facility] Comment on above: Order Comment: Order Added by Discern Expert. Performed By: #### 7 [id number], [id number], [id number], [id number] #### [facility] [address] [place] [address] Eosinophils/Leukocyte s Auto (Bld) [Pure # fraction] 0.1 E9/L Normal 0.0-0.5 [facility] Comment on above: Order Comment: Order Added by Discern Expert. Performed By: #### 7 [id number], [id number], [id number], [id number] #### [facility] [address] [place] [address] Lymphocytes/100 WBC (Bld) 38.8 % Normal 14.0-50.0 [facility] Comment on above: Order Comment: Order Added by Discern Expert. Performed By: #### 7 [id number], [id number], 4344208, [id number] #### [facility] [address] [place] [address] Lymphocytes/Leukocyte s Auto (Bld) [Pure # fraction] 2.8 E9/L Normal 1.0-4.0 [facility] Comment on above: Order Comment: Order Added by Phil Expert. Performed By: #### 7 [id number], [id number], [id number], [id number] #### [facility] [address] [place] [address] Monocytes/100 WBC (Bld) 4.2 % Normal 4.0-14.0 [facility] Comment on above: Order Comment: Order Added by Discern Expert. Performed By: #### 7 [id number], 7482476, 3413260, [id number] #### [facility] [address] [place] [address] Monocytes/Leukocytes Auto (Bld) [Pure # fraction] 0.3 E9/L Normal 0.2-1.0 [facility] Comment on above: Order Comment: Order Added by Phil Expert. Performed By: #### 7 [id number], [id number], 1286460, [id number] #### [facility] [address] [place] [address] Neutrophils/100 WBC (Bld) 54.8 % Normal 36.0-75.0 [facility] Comment on above: Order Comment: Order Added by Phil Expert. Performed By: #### 7 [id number], 7053917, 5647850, [id number] #### [facility] [address] [place] [address] Neutrophils/Leukocyte s Auto (Bld) [Pure # fraction] 4.0 E9/L Normal 2.0-7.5 [facility] Comment on above: Order Comment: Order Added by Discern Expert. Performed By: #### 7 [id number], [id number], 9434872, [id number] #### [facility] [address] [place] [address] CBC w/ Auto Diffon 2 Erythrocyte distribution width (RBC) [Ratio] 13.2 % Normal 10.9-14.2 [facility] Comment on above: Performed By: #### 7 [id number], [id number], 7370886, 7954351 #### [facility] [address] [place] [address] Hematocrit (Bld) [Volume fraction] 41.8 % Normal 34.0-46.0 [facility] Comment on above: Performed By: #### 7 [id number], [id number], 4124055, 7492012 #### [facility] [address] [place] [address] Hemoglobin (Bld) [Mass/Vol] 14.2 g/dL Normal 12.0-16.0 [facility] Comment on above: Performed By: #### 7 [id number], 7348985, 9715430, [id number] #### [facility] [address] [place] [address] MCH (RBC) [Entitic mass] 28.3 pg Normal 27.0-34.0 [facility] Comment on above: Performed By: #### 7 [id number], 7397431, 7051582, 0504460 #### [facility] [address] [place] [address] MCHC (RBC) [Mass/Vol] 34.0 g/dL Normal 31.4-36.0 [facility] Comment on above: Performed By: #### 7 [id number], 7502338, 5854266, 0733722 #### [facility] [address] [place] [address] MCV (RBC) [Entitic vol] 83.2 fL Normal 80.0-100.0 [facility] Comment on above: Performed By: #### 7 [id number], 0204943, 4799111, 4423468 #### [facility] [address] [place] [address] Platelet mean volume (Bld) [Entitic vol] 8.4 fL Normal 6.4-10.8 [facility] Comment on above: Performed By: #### 7 [id number], 4224070, 3144547, 0176182 #### [facility] [address] [place] [address] Platelets (Bld) [#/Vol] 382.0 E9/L Normal 150.0-500.0 [facility] Comment on above: Performed By: #### 7 [id number], 1128330, 7267686, 8828487 #### [facility] [address] [place] [address] RBC (Bld) [#/Vol] 5.0 E12/L Normal 4.3-5.9 [facility] Comment on above: Performed By: #### 7 [id number], 8286764, 3980073, 3558895 #### [facility] [address] [place] [address] WBC corrected for nucl RBC Auto (Bld) [#/Vol] 7.3 E9/L Normal 4.0-11.0 [facility] Comment on above: Performed By: #### 7 [id number], 1083638, 3878744, 8178194 #### [facility] [address] [place] [address] CHEMISTRYOrdered By: SYSTEM SYSTEM on 12-25-2021 Ferritin [Mass/Vol] 40 ng/mL Normal 11 - 307 ng/mL [facility] Remisol CHEMISTRYOrdered By: Socrates chow on 12-25-2021 HbA1c (Bld) [Mass fraction] 5.3 % Normal <=5.9% [facility] ChemAutoSS Consent for Treatmenton 12-10 Consent for Treatment [id number]#1 .00CD:127 Normal [facility] Ferritinon 12-25-2021 Ferritin [Mass/Vol] 40 ng/mL Normal 11-307 [facility] Comment on above: Result Comment: NORM ALS MEN <30 YRS 16-132 ng/mL MEN >30 YRS 8-338 ng/mL WOMEN (PREMEN) 6-104 ng/mL WOMEN (POSTMEN) 12-210 ng/mL Performed By: #### 7 [id number], [id number], 0606137, [id number] #### [facility] [address] [place] [address] HEMATOLOGYOrdered By: SYSTEM SYSTEM on 12-25-2021 Basophils/100 WBC (Bld) 0.6 % Normal 0.0 - 2.0 % [facility] HemeAutoSS Basophils/Leukocytes Auto (Bld) [Pure # fraction] 0.0 E9/L Normal 0.0 - 0.2 E9/L [facility] HemeAutoSS Eosinophils/100 WBC (Bld) 1.6 % Normal 0.0 - 8.0 % [facility] HemeAutoSS Eosinophils/Leukocyte s Auto (Bld) [Pure # fraction] 0.1 E9/L Normal 0.0 - 0.5 E9/L [facility] HemeAutoSS Lymphocytes/100 WBC (Bld) 38.8 % Normal 14.0 - 50.0 % [facility] HemeAutoSS Lymphocytes/Leukocyte s Auto (Bld) [Pure # fraction] 2.8 E9/L Normal 1.0 - 4.0 E9/L [facility] HemeAutoSS Monocytes/100 WBC (Bld) 4.2 % Normal 4.0 - 14.0 % [facility] HemeAutoSS Monocytes/Leukocytes Auto (Bld) [Pure # fraction] 0.3 E9/L Normal 0.2 - 1.0 E9/L [facility] HemeAutoSS Neutrophils/100 WBC (Bld) 54.8 % Normal 36.0 - 75.0 % [facility] HemeAutoSS Neutrophils/Leukocyte s Auto (Bld) [Pure # fraction] 4.0 E9/L Normal 2.0 - 7.5 E9/L [facility] HemeAutoSS HEMATOLOGYOrdered By: Milla Romero on 12-25-2021 Erythrocyte distribution width (RBC) [Ratio] 13.2 % Normal 10.9 - 14.2 % [facility] HemeAutoSS Hematocrit (Bld) [Volume fraction] 41.8 % Normal 34.0 - 46.0 % [facility] Hemoglobin (Bld) [Mass/Vol] 14.2 g/dL Normal 12.0 - 16.0 gm/dL [facility] MCH (RBC) [Entitic mass] 28.3 pg Normal 27.0 - 34.0 pg [facility] MCHC (RBC) [Mass/Vol] 34.0 g/dL Normal 31.4 - 36.0 gm/dL [facility] MCV (RBC) [Entitic vol] 83.2 fL Normal 80.0 - 100.0 fL [facility] Platelet mean volume (Bld) [Entitic vol] 8.4 fL Normal 6.4 - 10.8 fL [facility] Platelets (Bld) [#/Vol] 382.0 E9/L Normal 150.0 - 500.0 E9/L [facility] RBC (Bld) [#/Vol] 5.0 E12/L Normal 4.3 - 5.9 E12/L [facility] WBC corrected for nucl RBC Auto (Bld) [#/Vol] 7.3 E9/L Normal 4.0 - 11.0 E9/L [facility] Physician Orderon 12-25-2021 Physician Order [id number]# 1.00CD:127 Normal [facility] Coding Summary.on 06-29-2021 Coding Summary. CD:[id number] G h0bWw+PGhlYWQ+CO5MFGH pI55jxQRheN7UI4xUZJ5B TZWFLEVQML6NHY6nlAT3X OqeP6LukrTa ZyfikTBpBU71AZp3VFC4r FdaYJzoqS6rxUXaT1r3Ap WlHT06yZ89NOwnIEYvEsC 3LjZpbjsgbWFy Q0ekLcYroEDtNxf+PHRhY mxlIHdpZHRoPScxMDAlJy QpdAasUV5kAb7kRUBcTMG vbGxhcHNlOiBj t6blGLDnNLtmBS5lwSojY 5QmqNW9VNPil6r9Lu47sB I+KMBtVYQ9zNrxZQurz78 7WwZpn8poIXA7 xEZmQHkuIMS9F09tu0N6M SNsKMVuKMB4rDP5zR2srW creszrB6XdoSNnOyY0RXB 6zQAmoW1uzGsg xzigwC8zZgd+N65CXX4BQ TWNKO8XSpd8N3BkXvosiL I+SC07UNDoPP92vRMlgYN rp9chsVd1NwZa VDGcEVE4eNueHHlkp1QyI UKtX73cpCVeq4M5EJSdvO dakCCpDwWyhLO5vF0zXWf jqyzub0zyhole Ckquf7hhlz98zC96K81wH RfyGDTvZMD2SYIuRZXvnR nkek8grR9pYd7+RUufi8h tn8ntnFr6BmLm PURcwaQnsVngICW3x9QvF e57K0KahKbbi1VlUvw7nm 85rKQsc8E8zBC0SJnvCYC rbP2tMMykQuA1 EFGhEhXpjD36eEQoLTnbK o3joIppcCngIO2aZNQvfg bzCXCipC7wAYRitVOavKa aBP6fUGGlpwcc u660FsQqCUN8LIIhmKQaR 8RouV0cVzZnVVEoMGWkV6 NsrHDnGMxzY321FLtzSkJ 0XFXztmBjQ4Mf PXErvLeoKuE8r8Y2Fv4Ra 3YhlugmESR0QWyhLSUcSh A1McKtCuB1A8JsAqp7VSD joXvbOC6kZ1Si RMBsrtzuujctqES9NVVxM OUoaR69xIJmQBuzTy0pd7 E7x869AVLsIKUinT37Ej8 udDogMTBwdCBU fL7movmgx4wqzfuuDmDkX ZFgERf5GHy4JSWsfKzkEr FgSKV5ToX6KBD2zUWkiE6 zkZzxyjquwN4a Oyc+H81rnC8zSBH0EQF4h mstDKAgznSiSQ43TU12A5 RyPjwvdGFibGU+PGRpdiB bfVlgLJ4jFcPj w5drd8CjQRcpZ2KySRKiS QifRsu7YHYfPMK3qAO3aP 0qAPPpDDigg6L5cMZ6Q3B steHylk7wk5eb MVHcQTfaV81zcPUhf8T2O MYcoDC7FICwbPxcBfIzbV 93Oyc+RYFroMcll9VqDyp th3wqt0ksjDn2 LnSzXYThpxAobBlyXMK2l 2SzHe79P02cKKdfHTNoNX BbVMNrSIAeeHbnfm3pyC2 wIi8+PGNvbCB3 hUX3xJ4wMAZvNoZ6NLwuF 918NkWvdHGgIotsf6wyn6 ietAv7QvArUBStldZtjGg bCOA7i1JhGy61 F41gLLpuHDImDHKvMXXaX JOqlTpykx9byV9uCs3+PC 8td4ntvq92oO74mTA+PHR vWCU0xJmgHEkc HVIeyW3tWDtlJuS3KFFgJ fAwcC56oJSfHXocIv9szY vndMkpYM5sQCGhxdstz28 2LhYiv8vkWPSh nKDuEGspMLY0X60kv2B9T ZPiFDStEER1fSN6tT1bsA lnbjogbGVmdDsgdmVydGl nQWdvUYdrY993 IHRvcDsnPlBhdGllbnQgT cQqUIt5H3HaMoi0IZVxtH ciWS7amUTcHZtdMg4odVq raIgkMK0mLYTh duqtj712UbIkp8lsKJXry TPnWDbrMRN6N17za4N5QA CnKGIlGPC4tSG4uY6auSt nbjogbGVmdDsg tjAzjTtbMDadNSktJ271X HRvcDsnPkJpcnRoIERhdG M9BG09PT22pCSzy9J7tAQ 9P7StLGUvmkrh wkoqbDQ1RLBiFRUlnP41Y h8giUdrEa6oDCMwCEO2CT GwnJYdJ8WvxO7zZmBmDOY gESTaJ1PwpNId SKzmX481WMtqKnC2TELjx eAgV8EwSVQizOszZmY9h1 X9Qo4YD0G1YW51TE18pJB pr9X9sTA9P0Bo YCQbyafovtxfaOJ8MCWmE PPcrV51Bm0ovVgmNm2pGJ MqBXW1EJIotJTmW7HphX1 yOiAjMDAwMDAw B5KzySMsLUmcW341NDwvK kC1FZEicbVnN5PlBYFdeL yxGeN1d8S0Zi8YOZf0CH9 2KK65tHNnj4M9 hRE9X2MyGBUietcynznnh TT4YLSqNOVpwW64Ci1zgF gcTn9eZTAwPIG4RBFrfBA pC7JpxL3dOtKq DAWnTAXyW2JucIJmGRovB 381LEjwWzO4TZOzdpXrR6 YiFFCqhIekZiK6b5S8Dz2 TMSMzHM48ENI6 jHA4GM57JT45A1UtCyphg GFibGU+PHRhYmxlIHdpZH RoPScxMDAlJyBzdHlsZT0 sTc8vLJUcIZNt uKsdlAXqSzLum9vsFJWpD QvhLD0ruGnvK0IegOW8HT Tkv7f4Yu06I31xH3BveQB +PGXtdPW1hZU2 kT8dUePoArR6GHykY583X gPguXCoBkklw1qdn8rzxB w4QjC9BSLyqyZfgVyzBPK 4k8CeVn24G74n IHdpZHRoPSIxNSUiIHZhb Lczdc5zzR4lCh8+PGNvbC L1jWK0wN8aNdWxSoP7BPl vH026GbLpvANe Usyan0wvq8xdxWk8ZcPqF LTcclUiaKlqUMX8p8LeGs 98L0ZjuTrqj0LdBpu5qe3 3vWVaz5B5tXZ3 U4EuZYVegzkvpGLvsLviV W0gAKToqvdhUTZdfI8vIB JlY2l6FlOoNaY2FGmxZ0A xhkH6YKXebDWs MBzuVWY2D57dw9V0UUJpP LChPEU9rEL5xW7reBfkdu ogbGVmdDsgdmVydGljYWw sNKxyS459WVKh wCyuBUGihE8wEUVryANuu SihEO1iNJHwijcfUkABZf NPLCBIQVlMRVkgUjwvdGQ +SCPhWIW2oKat CReoXWFsaF4vUBMrQ2x0M gEoJyF8AZucC8CrSJNbrw miOc80sW8uGnAvHsO0SGw dI3MwivN0ADUy oXTvCEjwPMT3Y76vk1F2K BMzVDWgXEJ3vDT3kA8nzV lnbjogbGVmdDsgdmVydGl gHQmqRKvpZ031 BXFwnKaiTnLqXcS5OwJ7C YN1B5HoRpm9MLNmgIknMA 9ynSIfZHieMr2otZflxHn rBO0yACCjfukn GNTpoE8xKLUtiWIwrNlyR B2cSBLipvkkr919FiYsSY M7EERvlFLhD5BasD4yEuX tLPCrDHVnT2Ta tXFbBAjpX643OBpeYtP6G MIoqoMrC9XgPCTmxJmkNx U9k4P1Yb2nQJEOVZIhqfw vdGQ+PHRkIHN0 tMqrOGdwMBQyeZ1kDTBmC 8p9GxFbBkO3ACwsU1ElUV IidnhcDj74fM9iDsBkHiQ 6MInyM2EauxD9 XCHrwNLxJXcoKXI1R41tj 7F3MXMrWERlRWQ6dYJ1rY 1hbGlnbjogbGVmdDsgdmV ydGljYWwtYWxp U514VJHibOggHfEkmAWbR TwvdGQ+MWPoZNV2tBswRA gbXFLxsA0xJBJjB6b8XpS qAgN3UHgpO2Le PPSiapfgIn54mO5bBmJaP iB9NLyxW4NuceL0IGBxnY ZwXJcxQSS2C59dq1E3XFC nXNLbDFL6uIU0 iF1oaGvhuhffgQRioInck jObhHpzDFsaNOyaV205MR KrhVlqXf76fGYvfZmjjuB 9Y2RgUuoeyHE+ RY28RXZoTV33rRMomYJhu 2tgrOx2KpWbJJTmJUP1vF aiHAcwb4MiJYDmV48yoQA hj6N6LXTxtLzt gHAyEsJcsVW0nD6cKJlai wons5zneeljXwuyi9blbl 86xC90M48wTOgyOSPmOSK zMCUiIHZhbGln lq4rnY0ePh2+HCEgcRN1m AY6lI6xYvCcGvZ9VLffA8 31PlCwkWMiNzljs1kvj5b mwAu0FeJfLBRs bbYssKcpFHC3m5NkQn06A 29sIHdpZHRoPSIyMCUiIH QwvTncdy5rhT9eNa2+PC9 na4pkge59yO17 dHI+NDWhTTY0aJxeQWmwN GLtdO0xYHhxSqK7CFGxUd BaxS89cUFeOOhuIq3myQs irTetXR4jKXAw trfgp382VnZdk0dhOEVum KRlGNywKOL3J31ce4T0JV OsXDPfKMH5bOG0zP2djZo nbjogbGVmdDsg zjVwvCezAKxhRYlpV956N OBgsTesQrYpqASdA6dagv RMZF7uFpexzPY+PHRkIHN 0eWxlPSdwYWRk vV6kOCSuF7j8PnIgBrV1K TefW2YakjS9NPIjgMHsYL StrYWRuB6qeiowe6szqvl gIzAwMDAwMDt0 AEx1SWGfbUmpMwWqKIC3P uZ7FYB5oHDdpO9grMjtog fvaL0nPid+RklOOjwvdGQ +SDHiAKA8wMzn VPgcWWAygL4wCWUiK5e6A uUaZoO8EUasI7QjhsU8QK QwbKPfHEGrhJXVtZ9kfpj wb8gcqqgkVsXa QTAvXOy1UCx7ABSzxDmxI bVrYET4PdM5RSD9iAPaeD 7ifWbfteublP8nHgy+TVJ OOjwvdGQ+PHRk XSK9mTirBWnoKMZxaV1xV KYgS3x3OhZcXeO3KJwgC0 ZtplX5DYWeiUCxYYEscNW WmK9rxldza7hr jgczAcWgFJEyODf8ICe2Q KDclKhgOwKdJCI1AgA4TX V5jPAklF6veLrckjepcZ7 wOyc+NZT8FTV7 YH85WI49V2NfYuassZShw +PHRhYmxlIHdpZHRoPS tkFXMyPzMazYqwYA4xAy8 yZGVyLWNvbGxh cHNl (more content not included)... Normal [facility] Auto Diffon 06-09-2021 Basophils/100 WBC (Bld) 0.8 % Normal 0.0-2.0 [facility] Comment on above: Order Comment: Order Added by Discern Expert. Performed By: #### 2 [id number], [id number], [id number], [id number], 9782782, [id number] #### [facility] [address] [place] [address]13 Basophils/Leukocytes Auto (Bld) [Pure # fraction] 0.1 E9/L Normal 0.0-0.2 [facility] Comment on above: Order Comment: Order Added by Discern Expert. Performed By: #### 2 544063, [id number], [id number], 5907595, 5840508, 9367413 #### [facility] [address] [place] [address]104 Eosinophils/100 WBC (Bld) 2.3 % Normal 0.0-8.0 [facility] Comment on above: Order Comment: Order Added by Phil Expert. Performed By: #### 2 711656, 6712177, 28496359, 5177997, 8545770, 4693902 #### [facility] [address] [place] [address] 05940 Eosinophils/Leukocyte s Auto (Bld) [Pure # fraction] 0.2 E9/L Normal 0.0-0.5 [facility] Comment on above: Order Comment: Order Added by Discern Expert. Performed By: #### 2 541655, 1184410, 29613527, 3117751, 2429433, 5124590 #### [facility] [address] [place] [address] 90880 Lymphocytes/100 WBC (Bld) 35.1 % Normal 14.0-50.0 [facility] Comment on above: Order Comment: Order Added by Phil Expert. Performed By: #### 2 246130, 6621148, 97287987, 3689011, 3677284, 6362186 #### [facility] [address] [place] [address] Lymphocytes/Leukocyte s Auto (Bld) [Pure # fraction] 3.0 E9/L Normal 1.0-4.0 [facility] Comment on above: Order Comment: Order Added by Discern Expert. Performed By: #### 2 569112, 7525148, 44954917, 9954596, 9986544, 3617317 #### [facility] [address] [place] [address] Monocytes/100 WBC (Bld) 4.6 % Normal 4.0-14.0 [facility] Comment on above: Order Comment: Order Added by Discern Expert. Performed By: #### 2 768564, 0796272, 01436317, 5605472, 0315985, 8489648 #### [facility] [address] [place] [address] Monocytes/Leukocytes Auto (Bld) [Pure # fraction] 0.4 E9/L Normal 0.2-1.0 [facility] Comment on above: Order Comment: Order Added by Phil Expert. Performed By: #### 2 957439, 3071067, 90387454, 4911643, 3651539, 2215843 #### [facility] [address] [place] [address] Neutrophils/100 WBC (Bld) 57.2 % Normal 36.0-75.0 [facility] Comment on above: Order Comment: Order Added by Discern Expert. Performed By: #### 2 377528, 8188242, 65543289, 2620983, 5913248, 7037967 #### [facility] [address] [place] [address] Neutrophils/Leukocyte s Auto (Bld) [Pure # fraction] 4.9 E9/L Normal 2.0-7.5 [facility] Comment on above: Order Comment: Order Added by Discern Expert. Performed By: #### 2 264422, 8978957, 52528969, 9344777, 4524065, 7319093 #### [facility] [address] [place] [address] CBC w/ Auto Diffon Erythrocyte distribution width (RBC) [Ratio] 13.6 % Normal 10.9-14.2 [facility] Comment on above: Performed By: #### 2 514543, 8829917, 53013905, 9710959, 7073891, 4256490 #### [facility] [address] [place] [address] 28278 Hematocrit (Bld) [Volume fraction] 43.0 % Normal 34.0-46.0 [facility] Comment on above: Performed By: #### 2 486860, 9098396, 24115872, 0699219, 7549277, 5994527 #### [facility] [address] [place] [address] 15723 Hemoglobin (Bld) [Mass/Vol] 14.1 g/dL Normal 12.0-16.0 [facility] Comment on above: Performed By: #### 2 871425, 2530102, 94095557, 2097576, 8719100, 9592590 #### [facility] [address] [place] [address] 54738 MCH (RBC) [Entitic mass] 27.6 pg Normal 27.0-34.0 [facility] Comment on above: Performed By: #### 2 436868, 6930314, 43868234, 2136201, 6827455, 5959218 #### [facility] [address] [place] [address] 67645 MCHC (RBC) [Mass/Vol] 32.8 g/dL Normal 31.4-36.0 [facility] Comment on above: Performed By: #### 2 268598, 0587104, 69356104, 1608673, 6139328, 3553474 #### [facility] [address] [place] [address] 75742 MCV (RBC) [Entitic vol] 84.2 fL Normal 80.0-100.0 [facility] Comment on above: Performed By: #### 2 412481, 3194231, 48157938, 5851359, 0217208, 9498870 #### [facility] [address] [place] [address] 15240 Platelet mean volume (Bld) [Entitic vol] 8.4 fL Normal 6.4-10.8 [facility] Comment on above: Performed By: #### 2 577422, 0167009, 25082335, 9390991, 4364614, 8991526 #### [facility] [address] [place] [address] Platelets (Bld) [#/Vol] 367.0 E9/L Normal 150.0-500.0 [facility] Comment on above: Performed By: #### 2 843283, 6741625, 38379837, 3711150, 3767259, 8837723 #### [facility] [address] [place] [address] RBC (Bld) [#/Vol] 5.1 E12/L Normal 4.3-5.9 [facility] Comment on above: Performed By: #### 2 230656, 0733832, 41982072, 0919100, 1421259, 1606271 #### [facility] [address] [place] [place] [id number] WBC corrected for nucl RBC Auto (Bld) [#/Vol] 8.5 E9/L Normal 4.0-11.0 [facility] Comment on above: Performed By: #### 2 298533, 4674606, 69304620, 4719717, 6699067, 4791715 #### [facility] Laboratory [address] [place] [address] CMPon 06-09-2021 Albumin [Mass/Vol] 4.4 g/dL Normal 3.3-5.0 [facility] Comment on above: Performed By: #### 2 848651, 1038406, 15532984, 9066133, 3451213, 3409764 #### [facility] [address] [place] [address] Albumin/Globulin (S) [Mass conc ratio] 1.6 Normal 1.1-2.2 [facility] Comment on above: Performed By: #### 2 706257, 8273120, 62408484, 8156498, 9463011, 7697087 #### [facility] [address] [place] [address] ALP [Catalytic activity/Vol] 100 Int._Unit/L High 21-98 [facility] Comment on above: Performed By: #### 2 553213, 3875480, 50919529, 7906202, 9092522, 9878073 #### [facility] [address] [place] [address] ALT No additional P-5'-P [Catalytic activity/Vol] 20 Int._Unit/L Normal 6-46 [facility] Comment on above: Performed By: #### 2 821853, 1688145, 44580375, 6844979, 3083724, 8993216 #### [facility] [address] [place] [address] Anion gap [Moles/Vol] 12 mmol/L Normal 6-16 [facility] Comment on above: Performed By: #### 2 746818, 8849893, 94893361, 0593918, 0010744, 4521660 #### [facility] [address] [place] [address] AST [Catalytic activity/Vol] 17 Int._Unit/L Normal 5-43 [facility] Comment on above: Performed By: #### 2 782227, 8851323, 54914677, 1026095, 9185478, 3616162 #### [facility] [address] [place] [address] Bilirubin [Mass/Vol] 0.7 mg/dL Normal 0.0-1.1 [facility] Comment on above: Performed By: #### 2 958736, 8348334, 97530920, 2607658, 3172341, 6683554 #### [facility] [address] [place] [address] Calcium [Mass/Vol] 10.0 mg/dL Normal 8.9-11.1 [facility] Comment on above: Performed By: #### 2 578899, 8785323, 60015965, 2568465, 5976448, 9169926 #### [facility] [address] [place] [address] Chloride [Moles/Vol] 101 mmol/L Normal 101-111 [facility] Comment on above: Performed By: #### 2 448690, 6117506, 08109236, 2760423, 2035128, 5239397 #### [facility] [address] [place] [address] CO2 [Moles/Vol] 29 mmol/L Normal 21-31 [facility] Comment on above: Performed By: #### 2 773549, 2705566, 20391533, 0257322, 6517453, 7586218 #### [facility] [address] [place] [address] Creatinine [Mass/Vol] 0.8 mg/dL Normal 0.5-1.3 [facility] Comment on above: Performed By: #### 2 959093, 4921092, 51282487, 1625160, 8643708, 9067887 #### [facility] [address] [place] [address] Globulin (S) [Mass/Vol] 2.8 g/dL Normal 1.4-4.0 [facility] Comment on above: Performed By: #### 2 807572, 7304061, 78826750, 5346181, 8560046, 8172196 #### [facility] [address] [place] [address] Glucose [Mass/Vol] 80 mg/dL Normal 55-199 [facility] Comment on above: Result Comment: If t his glucose result represents a fasting glucose, interpretation should refer to the following reference range: 55-99 mg/dL Performed By: #### 2 732709, 8815180, 65636992, 2570063, 4329395, 6549823 #### [facility] [address] [place] [address] Potassium [Moles/Vol] 4.6 mmol/L Normal 3.5-5.3 [facility] Comment on above: Performed By: #### 2 420466, 8017424, 35025080, 5289586, 7094623, 7598132 #### [facility] [address] [place] [address] Protein [Mass/Vol] 7.2 g/dL Normal 6.0-7.8 [facility] Comment on above: Performed By: #### 2 319831, 8327729, 19591326, 2962391, 7133387, 2475299 #### [facility] [address] [place] [address] Sodium [Moles/Vol] 137 mmol/L Normal 135-145 [facility] Comment on above: Performed By: #### 2 509869, 8088497, 98457850, 1305476, 0510229, 8780702 #### [facility] [address] [place] [address] Urea nitrogen [Mass/Vol] 14 mg/dL Normal 5-21 [facility] Comment on above: Performed By: #### 2 222783, 7946598, 94249855, 1696353, 5569618, 4851778 #### [facility] [address] [place] [address] Urea nitrogen/Creatinine [Mass ratio] 18 No Units Normal 10- [facility] Comment on above: Performed By: #### 2 589985, 0027769, 30211886, 7374999, 7068649, 0946747 #### [facility] [address] [place] [address] Consent for Treatmenton 05-13 Consent for Treatment [id number]#1 .00CD:127 Normal [facility] Lipid Panelon 06-09-2021 Cholesterol [Mass/Vol] 268 mg/dL High 120-200 [facility] Comment on above: Performed By: #### 2 140010, 6170362, 11070973, 3682730, 3310003, 6789865 ####[facility] [address] [place] [address] Cholesterol in HDL [Mass/Vol] 70 mg/dL Invalid Interpretation Code [facility] Comment on above: Result Comment: HDL > or equal to 60 mg/dL: Low cardiovascular risk HDL < 40 mg/dL : High cardiovascular risk Performed By: #### 2 294985, 3057494, 76364073, 7383860, 7511371, 4535238 ####[facility] [address] [place] [address] Cholesterol in LDL [Mass/Vol] 141 mg/dL High <=129 [facility] Comment on above: Performed By: #### 2 628402, 6343611, 23936746, 8870982, 6002821, 3540528 ####[facility] [address] [place] [address] Cholesterol in VLDL [Mass/Vol] 35 mg/dL Normal 7-40 [facility] Comment on above: Performed By: #### 2 602508, 8025952, 96637459, 7184517, 1051661, 7914735 ####[facility] [address] [place] [address] Triglyceride [Mass/Vol] 177 mg/dL High <=149 [facility] Comment on above: Performed By: #### 2 577861, 6716356, 99469179, 6564254, 4146451, 1209506 ####[facility] [address] [place] [address] Physician Orderon 06-09-2021 Physician Order [id number]# 1.00CD:127 Normal [facility] TSHon 06-09-2021 TSH Qn 1.71 m[IU]/L Normal 0.34-5.60 [facility] Comment on above: Performed By: #### 2 543665, 9184637, 84967020, 4960340, 2491703, 9926541 ####[facility] [address] [place] [address] eGFRon 06-09-2021 GFR/1.73 sq M.predicted among blacks MDRD (S/P/Bld) [Vol rate/Area] mL/min/{1.73_m2} Normal >=59 [facility] Comment on above: Order Comment: Order added by Discern Expert. Result Comment: eGFR is race adjusted. AA=. Performed By: #### 2 475528, 0667787, 24830379, 0132538, 6593044, 5447075 ####[facility] [address] [place] [address] GFR/1.73 sq M.predicted among non-blacks MDRD (S/P/Bld) [Vol rate/Area] mL/min/{1.73_m2} Normal >=59 [facility] Comment on above: Order Comment: Order added by Discern Expert. Result Comment: Ethyl Blender rajeev kidney disease could be indicated at eGFR's of less than 60 mL/min/1.73m2. Kidney failure is indicated at less than 15 mL/min/1.73m2. Performed By: #### 2 359484, 4234959, 42992650, 8930690, 4294552, 5918524 ####[facility] [address] [place] [address] Vital Signs Date Time Vital Sign Value Performing Clinician Facility 01-09-2023 17:07-0400 Body weight 96.[address] JOSE KHAN . [facility] Comment on above: Performed By: #### AFPMAT #### [facility] [address] [place], [place] [address] Dr. Chloé Reagan 04-05-2022 18:31-0400 Blood Pressure Location [facility] 04-05-2022 18:31-0400 Body temperature 98.78 [degF] [facility] 04-05-2022 18:31-0400 Diastolic blood pressure 72 mm[Hg] [facility] 04-05-2022 18:31-0400 Heart rate 72 /min [facility] 04-05-2022 18:31-0400 SaO2% (BldA) [Mass fraction] 98 % Jo-Ann Lau [facility] 04-05-2022 18:31-0400 Systolic blood pressure 110 mm[Hg] [place] Judi [facility] Encounters Encounter Date Encounter Type Care Provider Facility Start: 07-16-2023 End: 07-16-2023 ambulatory JOSE KHAN Not Available Start: 05-12-2023 End: 05-12-2023 Emergency department patient visit Betty Geronimo Facility:[facility] Start: 12-22-2022 End: 12-23-[address] JOSE KHAN . Facility: Start: 12-17-2022 End: 12-18-[address] JOSE KHAN . Facility: Start: 10-24-2022 End: 10-25-2022 ambulatory NONE LISTED REQUEST Facility: Start: 09-27-2022 End: 09-28-[address] JOSE KHAN . Facility: Start: 05-21-2022 ambulatory Jareth Justin Facility :[facility] Start: 04-05-2022 End: 04-06-2022 ambulatory Jo-Ann Lau Facility: [place] Start: 04-05-2022 End: 04-05-2022 Patient encounter procedure Jo-Ann Lau [facility] Start: 12-25-2021 End: 12-26-2021 ambulatory Jose KHAN Facility:[facility] Start: 12-25-2021 End: 12-25-2021 Patient encounter procedure Jose KHAN [facility] Start: 06-09-2021 End: 09-08-2021 ambulatory Jareth Justin Facility:[facility] Procedures Date Procedure Procedure Detail Performing Clinician Start: 08-12-2017 Cervical cone Biopsy Co marianela KHAN back surgery lypomas removed Jose KHAN section Jo-Ann Orze ch Immunizations Immunization Date Immunization Notes Care Provider Fa cilijon 06-09-2021 influenza virus vaccine, unspecified formulation; Translations: [Fluzone PF Quadrivalent ] Jose KHAN [facility] Comment on above: Reason for Medicatio n: Prophylaxis 09-06-2020 SARS-CoV-2 (COVID-19 ) mRNA-7363 vaccine Jo-Ann Orzech [facility] 08-09-2020 SARS-CoV-2 (COVID-19 ) mRNA-1273 vaccine Jo-Ann Orzech [facility] 03-27-2004 measles, mumps and rubella virus vaccine Jo-Ann Orzech [facility] 09-21-1996 DTaP, unspecified formulation Jo-Ann Orzech [facility] 09-20-1993 DTaP, unspecified formulation Jo-Ann Orzech [facility] 09-20-1993 Hib, unspecified formulation Jo-Ann Orzech [facility] 09-20-1993 measles, mumps and rubella virus vaccine Jo-Ann Orzech [facility] 03-17-1992 DTaP, unspecified formulation Jo-Ann Orzech [facility] 03-17-1992 Hib, unspecified formulation Jo-Ann Orzech [facility] 01-18-1992 DTaP, unspecified formulation Jo-Ann Orzech [facility] 01-18-1992 Hib, unspecified formulation Jo-Ann Orzech [facility] 1991 DTaP, unspecified formulation Jo-Ann Orzech [facility] 1991 Hib, unspecified formulation Jo-Ann Orzech [facility] Payers Date Payer Category Payer Self-pay 2022 Medicaid [id number] 2021 Unknown [id number] 2021 Unknown [id number] 1991 Unknown [id number] 2.16.8 [id number] 1991 Unknown [id number] 2.16.8 40.1.838846.3.579.2.727 1991 Unknown [id number] 2.16.8 40.1.413910.3.579.2.727 1991 Unknown [id number] 2.16.8 40.1.145377.3.579.2.727 1991 Unknown [id number] 2.16.8 40.1.931488.3.579.2.727 1991 Unknown [id number] 2.16.84 0.1.125735.3.579.2.593 1991 Unknown [id number] 2.16.84 0.1.496069.3.579.2.593 1991 Unknown [id number] 2.16.84 0.1.230997.3.579.2.593 1991 Unknown [id number] 2.16.84 0.1.359628.3.579.2.593 1991 Unknown [id number] 2.16.840 .1.440440.3.579.2.1259 Unknown [id number] 2.16.8 [id number] Social History Date Type Detail Facility Start: 03-22-2020 End: 04-05-2022 Tobacco smoking status Never smoked tobacco (finding) [facility] Tobacco smoking status Never [facility] Sex Assigned At Female [facility] Functional Status Date Assessment Result Facility 04-05-2022 Functional Status N/A [facility] Evaluation + Plan note Note Date & Type Note Facility Evaluation + Plan note No data available for this section [facility] Hospital Discharge instructions Note Date & Type Note Facility Hospital Discharge instructions No data available for this section [facility] Progress note Note Date & Type Note Facility Progress note No data available for this section [facility] Summary Purpose Family History No Family History Records FoundNo Family History Records FoundNo Family History Records FoundNo Family History Records Found Advance Directives No Advanced Directives Records FoundNo Advanced Directives Records FoundNo Advanced Directives Records FoundNo Advanced Directives Records Found Additional Source Comments Care Team (unrecognized sect ion and content) Personnel Name: Mary Kate Evans CNP Address: [address] [place] [address], [address] INFORMATION SOURCE (unrecogn ized section and content) DATE CREATED AUTHOR 05/21/2022 [facility] DATE CREATED AUTHOR AUTHOR'S ORGANIZ ATION 01/18/2023 [facility] DATE CREATED AUTHOR AUTHOR'S ORGANIZ ATION 05/24/2023 [facility] DATE CREATED AUTHOR AUTHOR'S ORGANIZ ATION 07/18/2023 [facility] Specialists [facility] FOR RECORDS PERTAINING TO PATIENTS WHO ARE OR HAVE BEEN ENROLLED IN A CHEMICAL DEPENDENCY/SUBSTANCEABUSE PROGRAM, SOME INFORMATION MAY BE OMITTED. This clinical summary was aggregated from multiple sources. Caution should be exercised in using it in the provision of clinical care. This summary normalizes information from multiple sources, and as a consequence, information in this document may materially change the coding, format and clinical context of patient data. In addition, data may be omitted in some cases. CLINICAL DECISIONS SHOULD BE BASED ON THE PRIMARY CLINICAL RECORDS. [facility] [employer] [facility]. provides no warranty or guarantee of the accuracy or completeness of information in this document.
== END 2024-07-22 19:08 | disposition home or self-care (01) ==
LOC: LAB 19:07
PROVIDERS: Visit Provider Obstetrics & Gynecology
DX: Z01.419 Encounter for gynecological examination (general) (routine) without abnormal findings (principal)
CPT/HCPCS: 87624; 88175

== ENCOUNTER 2024-07-23 15:36 | Outpatient (OUT) | payer MEDICAID, SELFPAY ==
--- NOTE | 2024-07-23 15:39 | US_ITS ---
[address] [address] Patient Name: RUFINA MARVIN MRN: [id number] date: 1990 Sex: F Assigned Patient Location: Current Patient Location: Accession/Order Number: [id number] Exam Date: 07/23/2024 15:40 Report Date: 07/24/2024 07:37 At the request of: JOSE KHAN Procedure: US pelvis transvaginal EXAMINATION: US pelvis transvaginal HISTORY: Abnormal Uterine Bleeding, Intrauterine Device Surveillance COMPARISON: No relevant comparison available. FINDINGS: The uterus is normal in size, contour and myometrial echotexture measuring 7.7 x 4.1 x 5.4 cm per the uterus is anteverted. The endometrium measures 3 mm, normal. Normally positioned IUD The right ovary is normal measuring 2.5 x 2.6 x 2.5 cm. Normal color and Doppler flow The left ovary is normal measuring 4.4 x 2.0 x 2.1 cm. Normal color and Doppler flow US/US pelvis transvaginal IMPRESSION: Normally positioned IUD Electronically authenticated by: ADIEL BURNETTE Date: 07/24/2024 07:37
--- OUTSIDE RECORDS SUMMARY | 2024-07-23 15:58 | XMS_ITS | CCD ---
Author Organization [facility] Care Team Providers Care Veneer Marker Name Role Phone Mary Kate Evans Primary Care Physician [phone] Jose KHAN Admitting Unavailable BILL, Jose Aguirre [...] Unavailable ZIEBER, DR RYAN Aguirre Consulting Unavailable Deirdre Geronimoina F Attending Unavailable Juanpablo Betty F Admitting Unavailable Melisa Evansecca Jaden Primary Care Unavailable JOSE KHAN Attending Unavailable Allergies Allergy Classification Reported Allergen(s) Allergy Type Date of Onset Reaction(s) Facility (3 sources) Bee/Wasp/Ant venom; Translations: [Bee Stings] Drug allergy Anaphylaxis (disorder) [facility] (1 source) Cephalexin Drug Allergy [address] [place] [address] Repository Medications Current Medications Medication Drug Class(es) [...] day(s), # 20 cap(s), Refills(s) 0, Pharmacy: [facility], 167, cm, 04/05/22 18:37:00 EDT, Height/Length Dosing, 91, kg, 04/05/22 18:37:00 EDT, Weight Dosing Start Date: 04/05/22 Stop Date: 04/15/22 Status: Ordered ethinyl estradiol 0.02 mg / ferrous fumarate 75 mg / norethindrone 1 mg oral tablet (1 source) Estrogen Start: 03-22-2020 take 1 tablet by mouth once daily [place] Fe 1/20 EQ oral tablet tab(s), Oral, [...] Refills(s) 0 Start Date: 04/05/22 Status: Ordered [place] Fe 1/20 EQ oral tablet (1 source) Start: 03-22-2020 take 1 tablet by mouth once daily [place] Fe 1/20 EQ oral tablet tab(s), Oral, [...] sources) Encounter for other specified screening; Translations: [[facility] OT SPEC SCREENING] Onset: 12-17-2022 Episodic [...] Anion gap [Moles/Vol] 12.0 mmol/L Normal 6.0-15.0 [facility] Comment on above: Performed By: #### C BC, BMP #### [facility] [address] [id number] [place] Calcium [Mass/Vol] 9.2 mg/dL Normal 8.6-10.3 [facility] Comment on above: Performed By: #### C BC, BMP #### [facility] [address] [id number] [place] Chloride [Moles/Vol] 105 mmol/L Normal 98-107 [facility] Comment on above: Performed By: #### C BC, BMP #### [facility] [address] CO2 [Moles/Vol] 23.3 mmol/L Normal 21.0-31.0 [facility] Comment on above: Performed By: #### C BC, BMP #### [facility] [address] Creatinine [Mass/Vol] 0.76 mg/dL Normal 0.60-1.20 [facility] Comment on above: Performed By: #### C BC, BMP #### [facility] [address] [place] [address] [place] Creatinine Clr Calc Pharmacy 123.36 Normal [facility] Comment on above: Result Comment: PERF ORMED BY: [place] [address] PATHOLOGIST PHOTOGRAPH DEVELOPER EVARISTO FLOREZ M.D. Performed By: #### C BC, BMP #### [place] [address] [place] GFR/1.73 sq M.predicted MDRD (S/P/Bld) [Vol rate/Area] mL/min/{1.73_m2} Normal [facility] Comment on above: Performed By: #### C BC, BMP #### [address] Glucose [Mass/Vol] 80 mg/dL Normal 70-100 [facility] Comment on above: Result Comment: [place] Glucose Reference Range is dependent on time and content of last meal. Glucose of more than 200 mg/dL in a nonstressed, ambulatory subject supports the diagnosis of Diabetes Mellitus. ADA recommended reference range Performed By: #### C BC, BMP #### [facility] [address] [place] [address] [place] Potassium [Moles/Vol] 4.3 mmol/L Normal 3.5-5.1 [facility] Comment on above: Performed By: #### C BC, BMP #### [facility] [address] [place] [address] [place] Sodium [Moles/Vol] 136 mmol/L Normal 136-145 [facility] Comment on above: Performed By: #### C BC, BMP #### [facility] [address] Urea nitrogen [Mass/Vol] 11 mg/dL Normal 7-25 [facility] Comment on above: Performed By: #### C BC, BMP #### [facility] [address] Complete Blood Count Auto Di ffon 05-12-2023 Basophils (Bld) [#/Vol] 0.0 10*3/uL Normal 0.0-0.2 [facility] Comment on above: Result Comment: PERF ORMED BY: [place] [address] PATHOLOGIST PHOTOGRAPH DEVELOPER EVARISTO FLOREZ M.D. Performed By: #### C BC, BMP #### [address] Basophils/100 WBC (Bld) 0.4 % Normal . [facility] Comment on above: Performed By: #### C BC, BMP #### [facility] [address] Eosinophils (Bld) [#/Vol] 0.3 10*3/uL Normal 0.0-0.45 [facility] Comment on above: Performed By: #### C BC, BMP #### [address] Eosinophils/100 WBC (Bld) 2.5 % Normal . [facility] Comment on above: Performed By: #### C BC, BMP #### [facility] [address] Erythrocyte distribution width (RBC) [Ratio] 14.1 % Normal 11.9-15.3 [facility] Comment on above: Performed By: #### C BC, BMP #### [facility] [address] Hematocrit (Bld) [Volume fraction] 39.0 % Normal 34.0-46.4 [facility] Comment on above: Performed By: #### C BC, BMP #### [facility] [address] [place] [address] [place] Hemoglobin (Bld) [Mass/Vol] 12.7 g/dL Normal 11.8-15.4 [facility] Comment on above: Performed By: #### C BC, BMP #### [facility] [address] Lymphocytes (Bld) [#/Vol] 1.6 10*3/uL Normal 1.00-4.8 [facility] Comment on above: Performed By: #### C BC, BMP #### [facility] [address] Lymphocytes/100 WBC (Bld) 13.1 % Normal . [facility] Comment on above: Performed By: #### C BC, BMP #### [address] MCH (RBC) [Entitic mass] 27.1 pg Normal 24.7-34.3 [facility] Comment on above: Performed By: #### C BC, BMP #### [address] MCV (RBC) [Entitic vol] 83.2 fL Normal 80-100 [facility] Comment on above: Performed By: #### C BC, BMP #### [address] Mean Corpuscular HGB Conc 32.6 g/dL Normal 32.0-35.0 [facility] Comment on above: Performed By: #### C BC, BMP #### [place] [address] [place] Monocytes (Bld) [#/Vol] 0.5 10*3/uL Normal 0.0-0.8 [facility] Comment on above: Performed By: #### C BC, BMP #### [place] [address] [place] Monocytes/100 WBC (Bld) 26.23 % High 0.00-20.00 [facility] Comment on above: Result Comment: For adults in ED, MDW > 20.0 may be associated with a higher risk of sepsis during the first 12 hrs of hospital admission Performed By: #### C BC, BMP #### [facility] [address] Monocytes/100 WBC (Bld) 3.8 % Normal . [facility] Comment on above: Performed By: #### C BC, BMP #### [facility] [address] Neutrophils (Bld) [#/Vol] 9.8 10*3/uL High 1.8-7.7 [facility] Comment on above: Performed By: #### C BC, BMP #### [facility] [address] Neutrophils/100 WBC (Bld) 80.2 % Normal . [facility] Comment on above: Performed By: #### C BC, BMP #### [address] NRBC% 0.2 /100{WBC} Normal 0-0.5 [facility] Comment on above: Performed By: #### C BC, BMP #### [facility] [address] Platelet mean volume (Bld) [Entitic vol] 8.4 fL Normal 6.3-10.7 [facility] Comment on above: Performed By: #### C BC, BMP #### [facility] [address] [place] [address] [place] Platelets (Bld) [#/Vol] 382 10*3/uL Normal 150-450 [facility] Comment on above: Performed By: #### C BC, BMP #### [facility] [address] [place] [address] [place] RBC (Bld) [#/Vol] 4.70 10*6/uL Normal 3.60-5.00 [facility] Comment on above: Performed By: #### C BC, BMP #### [facility] [address] [place] [address] [place] WBC (Bld) [#/Vol] 12.2 10*3/uL High 3.8-11.6 [facility] Comment on above: Performed By: #### C BC, BMP #### [facility] [address] [place] [address] [place] Dipstick and Microscopicon 1 0- Appearance (U) Clear Normal Clear [facility] Comment on above: Order Comment: Name Collection Type:: Clean-Voided Midstream Performed By: #### C UU, ADDONUAPLUS #### [facility] [address] [place] [address] [place] Bacteria,Urine 1+ High None Seen [facility] Comment on above: Order Comment: Name Collection Type:: Clean-Voided Midstream Performed By: #### C UU, ADDONUAPLUS #### [place] [address] [place] Bilirubin,Urine Negative Normal Negative [facility] Comment on above: Order Comment: Name Collection Type:: Clean-Voided Midstream Performed By: #### C UU, ADDONUAPLUS #### [place] [address] [place] Color (U) Yellow Normal Yellow [facility] Comment on above: Order Comment: Name Collection Type:: Clean-Voided Midstream Performed By: #### C UU, ADDONUAPLUS #### [place] [address] [place] Glucose Ql (U) Normal Normal Normal [facility] Comment on above: Order Comment: Name Collection Type:: Clean-Voided Midstream Performed By: #### C UU, ADDONUAPLUS #### [facility] [address] [place] [address] [place] Hyaline Casts,Urine None Seen Normal 0-1 [facility] Comment on above: Order Comment: Name Collection Type:: Clean-Voided Midstream Result Comment: PERF ORMED BY: [place] [address] PATHOLOGIST PHOTOGRAPH DEVELOPER EVARISTO FLOREZ M.D. Performed By: #### C UU, ADDONUAPLUS #### [facility] [address] [place] [address] Ketones Ql (U) Negative Normal Negative [facility] Comment on above: Order Comment: Name Collection Type:: Clean-Voided Midstream Performed By: #### C UU, ADDONUAPLUS #### [address] Leukocyte esterase Test strip Ql (U) Negative Normal Negative [facility] Comment on above: Order Comment: Name Collection Type:: Clean-Voided Midstream Performed By: #### C UU, ADDONUAPLUS #### [place] [address] [place] Nitrite,Urine Negative Normal Negative [facility] Comment on above: Order Comment: Name Collection Type:: Clean-Voided Midstream Performed By: #### C UU, ADDONUAPLUS #### [address] Occult Blood,Urine 3+ High Negative [facility] Comment on above: Order Comment: Name Collection Type:: Clean-Voided Midstream Result Comment: PERF ORMED BY: [place] [address] PATHOLOGIST PHOTOGRAPH DEVELOPER EVARISTO FLOREZ M.D. Performed By: #### C UU, ADDONUAPLUS #### [facility] [address] [place] [address] [place] pH (U) 6.0 [pH] Normal 5.0-9.0 [facility] Comment on above: Order Comment: Name Collection Type:: Clean-Voided Midstream Performed By: #### C UU, ADDONUAPLUS #### [facility] [address] [place] [address] [place] Protein,Urine Negative Normal Negative [facility] Comment on above: Order Comment: Name Collection Type:: Clean-Voided Midstream Performed By: #### C UU, ADDONUAPLUS #### [place] [address] [place] RBC,Urine 20-49 High 0-4 [facility] Comment on above: Order Comment: Name Collection Type:: Clean-Voided Midstream Performed By: #### C UU, ADDONUAPLUS #### [facility] [address] [place] [address] Specificy [place],Urine 1.016 Normal 1.001-1.030 [facility] Comment on above: Order Comment: Name Collection Type:: Clean-Voided Midstream Performed By: #### C UU, ADDONUAPLUS #### [facility] [address] [place] [address] Squamous Epithelial Cell,Urine 1-2 Normal 0-2 [facility] Comment on above: Order Comment: Name Collection Type:: Clean-Voided Midstream Performed By: #### C UU, ADDONUAPLUS #### [address] Urobilinogen,Urine Normal Normal Normal [facility] Comment on above: Order Comment: Name Collection Type:: Clean-Voided Midstream Performed By: #### C UU, ADDONUAPLUS #### [address] WBC,Urine 1-2 Normal 0-4 [facility] Comment on above: Order Comment: Name Collection Type:: Clean-Voided Midstream Performed By: #### C UU, ADDONUAPLUS #### [address] US abdomen limitedon 023 US abdomen limited [facility] [place] [address] [place] [address] Ultrasound Report Signed Patient: Rufina Marvin MR#: [id number] 62 : 1990 Acct:[id number] Age/Sex: 32 / F ADM Date: 05/12/23 Loc: ER Room: Type: [facility] ER Attending Dr: Ordering Provider: Betty Geronimo [...] Renteria Jr., D.OClarissa05/12/2023 12:12 PM Dictation Location: [place] [address] Tech: Ashley Khan Transcribed By: CHING 05/12/23 1212 Dictated By: Jeff Renteria Jr, DO 05/12/23 1210 Signed By: 05/12/23 1212 [facility] Urine Cultureon 05-12-2023 Bacteria identified Cx Nom (U) No Growth 2 Days PERFORMED BY: [place] [address] PATHOLOGIST PHOTOGRAPH DEVELOPER EVARISTO FLOREZ M.D. [facility] Comment on above: Performed By: #### C UU, ADDONUAPLUS #### [address] AFP MATERNAL FOR SPINA BIFID Aon 01-09-2023 AFP MoM See interpretation. Normal [facility] Comment on above: Performed By: #### A FPMAT #### [facility] [address] [address] [address] Chloé Reagan AFP Value 56.1 ng/mL Normal [facility] Comment on above: Performed By: #### A FPMAT #### [facility] [address] [address] [address] Chloé Reagan AFP, Serum for Spina Bifida Comment Normal [facility] Comment on above: Result Comment: The MOM and risk factors of this report have been modified based on new information supplied to us by the client or their designated telephone service representative. Note that the gestational ages on [...] 12/31/2022 Performed By: #### A FPMAT #### [facility] [address] [place] [address] Dr. Chloé Reagan Comment Comment Normal [facility] Comment on above: Result Comment: Hemalatha Parker, Ph.D., [facility] Director . References: Available Upon Request. . Multiples Of Median Cutoffs For AFP Elevations Peace 2.5 Black 2.8 IDD 2.0 Twins 4.5 Abbreviation Definitions IDD - Insulin Dep Diabetes OSBR - Open Spina Bifida Risk . For further inquiries contact [employer] at [phone]. . This test was developed and its performance characteristics determined by [employer] [facility]. It has not been cleared or approved by the Food and Drug Administration. Performed By: #### A FPMAT #### [facility] [address] [place] [address] Dr. Chloé Reagan Gest Age Collection Date 5.0 weeks [facility] Comment on above: Result Comment: This is a corrected report. The previously reported result was: Gest. Age on Neo... 12/31/2022 Not provided. . Performed By: #### A FPMAT #### [facility] [address] [place] [address] Dr. Chloé Reagan Gestat, Age Based on As provided Normal [facility] Comment on above: Result Comment: Reca lculations are not recommended when gestational dating by LMP and ultrasound are within 10 days. Performed By: #### A FPMAT #### [facility] [address] [place] [address] Dr. Chloé Reagan Insulin Dep Diabetes No Normal [facility] Comment on above: Performed By: #### A FPMAT #### [facility] [address] [place] [address] Dr. Chloé Reagan Interpretation Comment Normal [facility] Comment on above: Result Comment: Inte [...] information. Performed By: #### A FPMAT #### [facility] [address] [place] [address] Dr. Chloé Reagan [age] [facility] Comment on above: Result Comment: This is a corrected report. The previously reported result was: [age] 12/31/2022 Performed By: #### A FPMAT #### [facility] [address] [place] [address] Dr. Chloé Reagan Multiple Gestation No Normal [facility] Comment on above: Performed By: #### A FPMAT #### [facility] [address] [place] [address] Dr. Chloé Reagan OSBR Risk 1 IN See interpretation. Normal [facility] Comment on above: Performed By: #### A FPMAT #### [facility] [address] [place] [address] Dr. Chloé Reagan PDF . Normal [facility] Comment on above: Performed By: #### A FPMAT #### [facility] [address] [address] [address] Chloé Reagan Race Normal [facility] Comment on above: Performed By: #### A FPMAT #### [facility] [address] [address] [address] Chloé Reagan Test Results: See interpretation. Normal e [facility] Comment on above: Performed By: #### A FPMAT #### [facility] [address] [address] [address] Chloé Reagan US PREG CERVICAL LENGTHon [...] RYAN ASHER Date: 2022-12-17 15:17 Normal [facility] HEP B SURFACE ANTIGEN SCREEN on 10-25-2022 HBsAg Screen Negative Normal Negative [facility] Comment on above: Performed By: #### H BSANS #### [facility] [address] [address] [address] Chloé Reagan HEPATITIS C VIRUS AB W/ REFL EX QUANTon 10-25-2022 Interpretation: Comment Normal [facility] Comment on above: Result Comment: Not infected with HCV unless early or acute infection is suspected (which may be delayed in an immunocompromised individual), or other evidence exists to indicate HCV infection. Performed By: #### H CVPCRR #### [facility] [address] [address] [address] Chloé Reagan HCV AB Non-Reactive Normal Non Reactive [facility] Comment on above: Performed By: #### H CVPCRR #### [facility] [address] [address] [address] Chloé Reagan HIV 1 AND 2 WITH REFLEXon HIV Screen 4th Generation wRfx Non-Reactive Normal Non Reactive [facility] Comment on above: Result Comment: HIV Negative HIV-1/HIV-2 antibodies and HIV-1 p24 antigen were NOT detected. There is no laboratory evidence of HIV infection. Performed By: #### H IV12 #### [facility] [address] [place] [address] Dr. Chloé Reagan RPR QUANTon 10-25-2022 Rapid Plasma Reagin, Quant Non-Reactive Normal NonRea<1:1 [facility] Comment on above: Result Comment: Plea se Note: This test does not meet current guidelines for screening and diagnosis of syphilis. This test is intended for following treatment response in patients being treated for syphilis infection. To screen for syphilis infection, a reflex cascade that includes both RPR and a treponema-specific assay should be utilized, such as Treponema pallidum (Syphilis) Screening [place] (903756) or Rapid Plasma Reagin (RPR) Test With Reflex to Quantitative RPR and Confirmatory Treponema pallidum Antibodies (242168). Performed By: #### R PRQ ####[facility] [id number] [address]Dr. Chloé Reagan RUBELLA AB IGGon 10-25-2022 Rubella Antibodies, IgG <0.90 Critically low Immune >0.99 [facility] Comment on above: Result Comment: Non- immune <0.90 Equivocal 0.90 - 0.99 Immune >0.99 Performed By: #### R UBIGG #### [facility] [address] [address] [address] Chloé Reagan CBC AUTO DIFFon 10-24-2022 BASO # 0.0 103/ul Normal 0.0-0.1 [facility] Comment on above: Performed By: #### C BC #### [facility] [address] [place] [address] Dr. Chloé Reagan Basophils/100 WBC (Bld) 0.3 % Normal 0.2-2.0 [facility] Comment on above: Performed By: #### C BC #### [facility] [address] [place] [address] Dr. Chloé Reagan EO # 0.1 103/ul Normal 0.0-0.7 [facility] Comment on above: Performed By: #### C BC #### [facility] [address] [place] [address] Dr. Chloé Reagan Eosinophils/100 WBC (Bld) 0.7 % Critically low 0.9-7.0 [facility] Comment on above: Performed By: #### C BC #### [facility] [address] [place] [address] Dr. Chloé Reagan Erythrocyte distribution width (RBC) [Ratio] 12.7 % Normal 11.0-15.0 [facility] Comment on above: Performed By: #### C BC #### [facility] [address] [place] [address] Dr. Chloé Reagan Hematocrit (Bld) [Volume fraction] 39.4 % Normal 36.0-48.0 [facility] Comment on above: Performed By: #### C BC #### [facility] [address] [place] [address] Dr. Chloé Reagan Hemoglobin (Bld) [Mass/Vol] 12.9 g/dL Normal 12.0-16.0 [facility] Comment on above: Performed By: #### C BC #### [facility] [address] [place] [address] Dr. Chloé Reagan IG # 0.04 10e3/ul Critically high 0.00-0.03 [facility] Comment on above: Performed By: #### C BC #### [facility] [address] [place] [address] Dr. Chloé Reagan IG % 0.3 % Normal 0.0-0.5 [facility] Comment on above: Performed By: #### C BC #### [facility] [address] [place] [address] Dr. Chloé Reagan LYMPH # 2.8 103/ul Normal 1.2-3.8 [facility] Comment on above: Performed By: #### C BC #### [facility] [address] [place] [address] Dr. Chloé Reagan Lymphocytes/100 WBC (Bld) 24.2 % Normal 20.5-60.0 [facility] Comment on above: Performed By: #### C BC #### [facility] [address] [place] [address] Dr. Chloé Reagan MANUAL DIFF REQ NO Normal [facility] Comment on above: Performed By: #### C BC #### [facility] [address] [place] [address] Dr. Chloé Reagan MCH (RBC) [Entitic mass] 28.0 pg Normal 26.7-34.0 [facility] Comment on above: Performed By: #### C BC #### [facility] [address] [place] [address] Dr. Chloé Reagan MCHC (RBC) [Mass/Vol] 32.7 g/dL Normal 29.9-35.2 [facility] Comment on above: Performed By: #### C BC #### [facility] [address] [place] [address] Dr. Chloé Reagan MCV (RBC) [Entitic vol] 85.7 fL Normal 81.0-99.0 [facility] Comment on above: Performed By: #### C BC #### [facility] [address] [place] [address] Dr. Chloé Reagan MONO # 0.5 103/ul Normal 0.3-0.8 [facility] Comment on above: Performed By: #### C BC #### [facility] [address] [place] [address] Dr. Chloé Reagan Monocytes/100 WBC (Bld) 4.4 % Normal 1.7-12.0 [facility] Comment on above: Performed By: #### C BC #### [facility] [address] [place] [address] Dr. Chloé Reagan NEUT # 8.2 103/ul Critically high 1.4-6.5 [facility] Comment on above: Performed By: #### C BC #### [facility] [address] [place] [address] Dr. Chloé Reagan Neutrophils/100 WBC (Bld) 70.1 % Normal 43.0-75.0 [facility] Comment on above: Performed By: #### C BC #### [facility] [address] [place] [address] Dr. Chloé Reagan Platelet mean volume (Bld) [Entitic vol] 9.7 fL Normal 9.5-13.5 [facility] Comment on above: Performed By: #### C BC #### [facility] [address] [place] [address] Dr. Chloé Reagan PLT 342 103/ul Normal 150-450 [facility] Comment on above: Performed By: #### C BC #### [facility] [address] [place], [place] [id number] Dr. Chloé Reagan RBC 4.60 106/ul Normal 4.20-5.40 [facility] Comment on above: Performed By: #### C BC #### [facility] [address] [place] [address] Dr. Chloé Reagan WBC 11.7 103/ul Critically high 4.0-11.0 The [facility] Comment on above: Performed By: #### C BC #### [facility] [address] [address] [address] Chloé Reagan CULTURE URINEon 10-24-2022 CULTURE URINE Culture Observations : MODERATE GROWTH OF MIXED GENITAL LAZARA. NO POTENTIAL PATHOGENS SEEN. Normal [facility] Comment on above: Performed By: #### U RCX ####[facility] [address] [address]Dr. Chloé Reagan GLYCOHEMOGLOBIN A1Con 2022 ADA RECOMMENDATION SEE BELOW Normal [facility] Comment on above: Result Comment: ADA RECOMMENDED LIMIT 4.0 - 6.0 ADA THERAPEUTIC TARGET < 7.0 ACTION SUGGESTED > 7.0 Performed By: #### A 1C #### [facility] [address] [place] [address] Dr. Chloé Reagan Glucose [Mass/Vol] 103 mg/dL Normal [facility] Comment on above: Performed By: #### A 1C #### [facility] [address] [place] [address] Dr. Chloé Reagan HbA1c (Bld) [Mass fraction] 5.2 % Normal 4.5-6.2 [facility] Comment on above: Performed By: #### A 1C #### [facility] [address] [place] [address] Dr. Chloé Reagan TSHon 10-24-2022 TSH 1.023 uIU/mL Normal 0.358-3.740 The [facility] Comment on above: Performed By: #### T SH #### [facility] [address] [place] [address] Dr. Chloé Reagan TYPE AND SCREENon 10-24-2022 TYPE AND SCREEN Negative Normal The [facility] Comment on above: Performed By: #### T NS ####[facility] [address] [place], [place] [address]Dr. Chloé Reagan US PREG TVon 09-27-2022 US [...] RYAN ASHER Date: 2022-09-27 15:05 Normal [facility] Family Medicine Office/Clini c Noteon 04-06-2022 Family [...] day(s), # 20 cap(s), Refills(s) 0, Pharmacy: [facility], 167, cm, 04/05/22 18:37:00 EDT, Height/Length [...] With When Contact Information Nathan MCGUIREMary Kate [address] [place] [address], [address] [place] [address]- Additional Instructions: Patient Education Otitis Media, Adult [...] Mirena, 1 EA, IntraUteral, Once, Not taking [place] Fe 08/31 EQ oral tablet, Oral, Daily, [...] Never S (more content not included)... Normal [facility] Comment on above: Result Comment: Elec tronically [...] Follow these instructions at home: ? Take ewno-nut-ydientr and prescription medicines only as told by [...] 05/03/2005 Document Revised: 07/11/2018 Document Reviewed: 07/19/2017 [employer] Patient Education ? 2020 [employer]. Nutrition BMI for Adults Body mass index [...] height. This can be done either in Marshallese ([place] or metric measurements. Note that charts are available to help you find your BMI quickly and easily without having to do these calculations yourself. To calculate your BMI in [place]ese ([place] measurements, your health care provider will: [...] (Xanax 0.25 mg Tab) ethinyl estradiol-norethindro ne ([place] Fe 1/20 EQ oral tablet) folic acid [...] media, left Duration: 10 Days Pickup at [facility] Unchanged alprazolam (Xanax 0.25 mg Tab) 1 Tablets By Mouth At bedtime Contact prescribing physician if questions or concerns Unchanged ethinyl estradiol-norethindro ne ([place] Fe 1/ 20 EQ oral tablet) By [...] physician if questions or concerns Pharmacy Information [facility]: [address] [place] [id number] [phone] Allergies Bee Stings (Anaphylaxis) Problems Ongoing - Any problem that you are currently receiving treatment for. Anxiety Cervical dysplasia HPV (human papilloma virus) Normal [facility] Coding Summary.on 01-04-2022 Coding Summary. CD:[id number] G h0bWw+PGhlYWQ+WQ8CUNP cA47njAKafB1UJ5hCKY9J XSGPSGMRLG0ELK1agLU5E YdrJ1ClkyAk DtldzVTwCW67PWw1ZVM7h UzsIYcegN0bwJNqH3n4Yd NrAB77bS81TIxoGUSfNlD 3LjZpbjsgbWFy G2jbIxQmeUCkZns+PHRhY mxlIHdpZHRoPScxMDAlJy DntBhiKT9jWh4wQGTwWLK vbGxhcHNlOiBj t7zuHCXoDAnrIO2scOawV 2RupWY7DZRsc8e7Dd77bL I+BFZxDFO5aAhaTKlxn22 5PyEzf5poTSC9 xEApESlsEBZ0J55fp5I4S VDzNLSyPXO0iMH9qQ4emY ezagkjP3ZhfJDgQbR2YZH 4sXQwzN7diHym nocelG2bOgs+G64BBE2EB PHLAZ1NWfy4O1WvZtidyB I+DM00SVJfAD55vLBifOS ah2qjdGs6SeIu GACrMPS6pTfnPZsjv0XkD RPnP09kvCLda1Q0CACvyH vdtHQbJjIynEJ7hR7hYRm ayojxh8wcgjmz Dsmpj5vmch75uI96C19mD DbqTDLmDYE4RVZwERHylV ndoq0krJ6sXm6+AXgux5m vp9yukSf2SjPq ZUGkvcJqhJfvMSW0k1EzK k37A8UgsFqtp4MpRes1tm 76qGPbx1Z0xUO8QWouFCC epJ0jPFheToI3 IBIcElModF42hAEbPYfmC h8ztUhlvAjyOR2vULMsux omEBQxhY1xYSZufAZysOp kNL0rMJBcspnk e535AnScACL1IRRanFIwU 9AxtB2fLwHmHHOlZIBhV8 SivMAkJTltY959XZnsZxI 5SXUisxBaA8As PSAnqRyoSyT7o8D8Sa1Tz 6ZibbzaLJZ7IWsnIPZ4Qq V8OqEhNmP9S7ZvHmc7WLT pgXgbGY1fT4Ub RQLpezqdcngxaOE3JBCyJ USbbL99fLKtTHtpXx8cy7 N8d887RIXcXLNkiO11Lm5 udDogMTBwdCBU vJ8nzwhkb2zlngzwEeCeU QHtUCn4AUi6EOBglXnvEr SkBWH4EwU8GOV4tIRgvO1 bsZdexwzehF6c Oyc+C08jcG5iUKI8NDI5m jovHDQyiqCjWH66RZ02H5 RyPjwvdGFibGU+PGRpdiB snJciGQ7vArJh x0ygj0BjMLpcD1ZjTXOcH AmcVzw7UNOnVUL7fBT5vF 1nLXUxPRhlk1P6dXN9U2G dzkLczg2yv2bo CARzWWtiX31quIEcz3E0C EWjqKO4QMHfdLuuYkOdoO 93Oyc+TBLhgRjwe2KdNjg pp9mki0ntwXj9 SzIzFFNwewZjgBsoECC0f 7UnIz75Q83tASdzVYBzCM PvQLWmUYDdkCwoie1cpD5 wIi8+PGNvbCB3 gWI7zX1jFVOxDdE1ICfmH 225BkDsrPGlGbjef8qgz4 mydAk0LnWdGUYrdwJkpBl rYIZ0k1YpBb34 X63aOJoyXMGwFXLhSDQuI AYatSxsrl1nuK2mGu4+PC 8zb1knse76uD26lOX+PHR pFXY6jWjnAFbn TIGigV5sDFidSvT5YXNcL xBvaR61eUAnHOkcMn5epW cmyAxdMD5iBRVgocbvg73 6OgHdk5tlULVm tNWzNGvzCMX8R09ve7F9C CClODPbOQX9cXH9vU2yuW lnbjogbGVmdDsgdmVydGl yFLidSVucK659 IHRvcDsnPlBhdGllbnQgT qXvSMp2I5GlNuk1JBNcgG htDN5twTHbMBztWg4jyTy fbKfuUO4kRVZy kvujx234ZbWsw8acEFOdi GQcYWpmVOL7F90sr6K4DN UeBKCwYDI6kIB5wO1qmLz nbjogbGVmdDsg baFzoAcdOQklMRxtP427L HRvcDsnPkJpcnRoIERhdG T0CO21PG15uOKjs7Z6uWZ 2A6OzVXUauimt taohaYC1BLGcVGNfzB69D f9upGfwZd7fTAGzNZT2DY CrcTGsB5EglS9tSjWxBBL xETItN5UgrGKu TFggL821DXoqRvB3ZCKkw nNkB9PrNRUelGbwTrD3h7 I6St0QO8X7BZ40XD09fNO tw0I0gNJ6E2Sl HURdijcifaejlMH4CMNnY AKzyC10Ix5vtMdtVu5iSK XlWFQ5EQAfcNFzY8CydA2 yOiAjMDAwMDAw M5OuuDGeOMiiZ006CIagR hX2OCDdsbXcE5RvWMQzjZ ugYhJ1k7J0De2KHRr5MC9 1FP40eOFuz2Y4 bLA2B2NtNXXqdqwrolkgm EP2XOXiRPPdfI73Cn3acG dhOe4fGEHkGCH3IUOsgUI gZ2KfxU2nBvSz OKUdJHOdK5NkkFUzQWesN 702APgdFyC0PWZsddHxB0 TmBNJakEnxExF0b2B9Ek4 FPPDuRB28WOU9 uPY9TX30HY09B4JaZeoez GFibGU+PHRhYmxlIHdpZH RoPScxMDAlJyBzdHlsZT0 sYb8hQVOgGSPx uElqeASuNgKfx4pkDNYgA SgyAK1ikBmcH3CuvTC4VV Acu2l5Mi93I96hE2ZccAX +MNHniFS9aEO3 iS7xIxYiNiV3PKllY893R hVwpTZaTbkjc9fly5ilbT b2PsA6JOKfmkIslHgkZZA 8t6WrBz77S52z IHdpZHRoPSIxNSUiIHZhb Nvbgk2yqX6pSj4+PGNvbC T9sNF8qJ9eTfWqPlV7YYf vE023MtHwnWIi Dlmwy8skc4wgaLh5DpQzU KNgioCdiKiqAIG6e9WtQr 45I9ZtwRnkh5PyRpw2gd6 8dXYlo1H8oOO5 R7PdCARuboqdwIPlaCoxA X1uMQLjbobfTPEscE3oRG SbJ2y7PgLfWbZ4SAeoL9F onoH7KTEfvOGy WZomDPH2V04vs8W3XDMwK UXoEKH6vFF7oK6nvQjqoj ogbGVmdDsgdmVydGljYWw qVIahX948KDVx wShnQEMkyR9wYPZleZFvu PezAD0oQVMjyyhvOzNPRn NPLCBIQVlMRVkgUjwvdGQ +GVAvRNO7xAtn KRjjTCIubM8qMLWhC5r0M nZdSbY2TWkaE7YhXNQkxv vpLf47kN0xUwHoAwT2HQb qH6SqqmT5JKSy tAQxUVtkNNF8S27jw5G9B RNoAYIgOTG1tSZ1eW1htJ lnbjogbGVmdDsgdmVydGl xAPsbPKtqM870 FDEucDiuKpCvErD2YxQ0J RG4O8MyLas0PXBgmHcwZQ 4jxTFtZNxwQp8myMefvYy iQU1bUAEkauht YAYjcY7vVAZvwSQejSuwG U2aSFOhsxlzt410CkVbDZ E3KJAsvMYyJ8AwvG2nYzE mBPKbIUDiT0Js tDObYSfeT056ASsxGcK0N YBmoxIoW2HjHDPqyShnUc J5z6R3Ls8mBAGBCCFaewg vdGQ+PHRkIHN0 zDtpGJidEDIaoT6wTDPuD 9k7YkDrCbM3VUwbB5PnYD NffilmNk14uR4wYdCdRiP 4ALhqH5VotvO7 OOVomQXeZJtmXXC3C22kz 5O7CMKxYSYoXXT4cCI0yB 1hbGlnbjogbGVmdDsgdmV ydGljYWwtYWxp L914FQAfxUwfDaIcuCXiN TwvdGQ+BOGsDPC3nHtlJK gnUHJpmZ5aLSOpC1k9DpH qKjN4TBvaF9Er DWAvyrjjTb82lM5oIjEhY fX7IBlaI3BsoqR1ZEEarG NeFWzkXHS3X92wa3B5VND wYZCvQMQ7nDB1 gC7pfSuzwgurzUGqmQcld jJyvGmhOHdbAAhvD124BT AgxAzvTx58uEMaiAniitD 1D9BmPmlqtWP+ BZ41QAOwZS48nEHxxXKgh 4xfoSw5XfWkLFAyMMV6tO xjPRdgy9WkOTFnM09uyIG zq7Q6ZAZxmFpl mWSvLuDkuVA6nQ0gVKgfe vwxv7xkolftZqknb6rfdy 16iN30E65mGNpcOIUkMOG zMCUiIHZhbGln ym5qiN8tQr2+ICKuoWY1x MK2kZ8zIpRqOgB8QTacS0 29GrPoyIPaZwwnx0hwf0y fkJo0MvVqHKQl meDofOgxVGH4a7EfTr01W 29sIHdpZHRoPSIyMCUiIH BisAmgni7ttA0pGb5+PC9 gk3gavz89cX39 dHI+RETwJZR3gEfaBPqjF FElyR9eYDtqMsR2BKAjJn XyqZ70aJJmPEivSh4vfWc wmSriSJ6xTKUj tdiyw375OzBxm2eiFFKif SPxQFwvWVN0H34fb3Y3WP SgGPWqOQI3qKN1pX7xzFr nbjogbGVmdDsg vvYkyPusWCufVIypG477E JMyxQbiAdCrdHYlS8tkxf INUN9wJdggpEK+PHRkIHN 0eWxlPSdwYWRk yR4oMIJwT0o4BxAuMfZ1S FqiH2RtpmY2KNXgqDYdAN RwhCINfD9sppujq5becgp gIzAwMDAwMDt0 QJh9GZUwmCytVxLwPXY1G bG7XMS4sIPziG0auKlqbu xgsV6eJnh+RklOOjwvdGQ +IWZlHWP5aYnj GQcdSNZhyX7gQHReQ8l2X aBmBvH9OTxwW4EsquE8ZW NynRWpGQIpnIJXxL2yizo kr9qcryuuLvRd ZVJuPZb0JDv9EADgqEazP lIxTXY9OaK7YLU8rTKelF 1fyNhwevvbrN4gHoj+TVJ OOjwvdGQ+PHRk COR8fYfuRZpvKHJoaK7eY FOeR7m4SsJtNeX8ZHrnA5 VpwbY0BZIesJXdTINlwYI ReR1dsqeik5xq pgabGbSdYQSvZEf5EPm2G KEhyKuhYvQiAFW8ViX2ID B7sEKswQ7frQjdhqbioO3 wOyc+OKR8TTC0 PE47GE80I7VkWvnrbOKbl +PHRhYmxlIHdpZHRoPS gjRWWdTiGfhAvdOL3hSt6 yZGVyLWNvbGxh cHNl (more content not included)... Normal [facility] BzgB7dps 12-26-2021 HbA1c (Bld) [Mass fraction] 5.3 % Normal <=5.9 [facility] Comment on above: Performed By: #### 7 [id number], [id number], [id number], [id number] #### [facility] [address] [place] [address] Auto Diffon 12-25-2021 Basophils/100 WBC (Bld) 0.6 % Normal 0.0-2.0 [facility] Comment on above: Order Comment: Order Added by Discern Expert. Performed By: #### 7 [id number], [id number], 7838814, [id number] #### [facility] [address] [place] [address] Basophils/Leukocytes Auto (Bld) [Pure # fraction] 0.0 E9/L Normal 0.0-0.2 [facility] Comment on above: Order Comment: Order Added by Discern Expert. Performed By: #### 7 [id number], [id number], 3153697, 3355546 #### [facility] [address] [place] [address] Eosinophils/100 WBC (Bld) 1.6 % Normal 0.0-8.0 [facility] Comment on above: Order Comment: Order Added by Discern Expert. Performed By: #### 7 [id number], 0568884, 6308248, [id number] #### [facility] [address] [place] [address] Eosinophils/Leukocyte s Auto (Bld) [Pure # fraction] 0.1 E9/L Normal 0.0-0.5 [facility] Comment on above: Order Comment: Order Added by Discern Expert. Performed By: #### 7 [id number], 3077903, 4145738, [id number] #### [facility] [address] [place] [address] Lymphocytes/100 WBC (Bld) 38.8 % Normal 14.0-50.0 [facility] Comment on above: Order Comment: Order Added by Discern Expert. Performed By: #### 7 [id number], 8403138, 9481028, 1736826 #### [facility] [address] [place] [address] Lymphocytes/Leukocyte s Auto (Bld) [Pure # fraction] 2.8 E9/L Normal 1.0-4.0 [facility] Comment on above: Order Comment: Order Added by Phil Expert. Performed By: #### 7 [id number], 6870804, 8386694, 5798568 #### [facility] [address] [place] [address] Monocytes/100 WBC (Bld) 4.2 % Normal 4.0-14.0 [facility] Comment on above: Order Comment: Order Added by Discern Expert. Performed By: #### 7 [id number], 8463302, 3801080, 9995587 #### [facility] [address] [place] [address] Monocytes/Leukocytes Auto (Bld) [Pure # fraction] 0.3 E9/L Normal 0.2-1.0 [facility] Comment on above: Order Comment: Order Added by Phil Expert. Performed By: #### 7 [id number], 2979336, 8875857, 1012100 #### [facility] [address] [place] [address] Neutrophils/100 WBC (Bld) 54.8 % Normal 36.0-75.0 [facility] Comment on above: Order Comment: Order Added by Phil Expert. Performed By: #### 7 [id number], 9700113, 3476229, 4487884 #### [facility] [address] [place] [address] Neutrophils/Leukocyte s Auto (Bld) [Pure # fraction] 4.0 E9/L Normal 2.0-7.5 [facility] Comment on above: Order Comment: Order Added by Discern Expert. Performed By: #### 7 [id number], 8889882, 3065972, 8057783 #### [facility] [address] [place] [address] CBC w/ Auto Diffon 2 Erythrocyte distribution width (RBC) [Ratio] 13.2 % Normal 10.9-14.2 [facility] Comment on above: Performed By: #### 7 [id number], 6831667, 2736166, 5297479 #### [facility] [address] [place] [address] Hematocrit (Bld) [Volume fraction] 41.8 % Normal 34.0-46.0 [facility] Comment on above: Performed By: #### 7 [id number], 6381684, 2966430, 4630507 #### [facility] [address] [place] [address] Hemoglobin (Bld) [Mass/Vol] 14.2 g/dL Normal 12.0-16.0 [facility] Comment on above: Performed By: #### 7 [id number], 2630715, 9987331, 1165549 #### [facility] [address] [place] [address] MCH (RBC) [Entitic mass] 28.3 pg Normal 27.0-34.0 [facility] Comment on above: Performed By: #### 7 [id number], 3746102, 7092454, 9474596 #### [facility] [address] [place] [address] MCHC (RBC) [Mass/Vol] 34.0 g/dL Normal 31.4-36.0 [facility] Comment on above: Performed By: #### 7 [id number], 7082689, 3027986, 6903375 #### [facility] [address] [place] [address] MCV (RBC) [Entitic vol] 83.2 fL Normal 80.0-100.0 [facility] Comment on above: Performed By: #### 7 [id number], 4240399, 4326365, 1235763 #### [facility] [address] [place] [address] Platelet mean volume (Bld) [Entitic vol] 8.4 fL Normal 6.4-10.8 [facility] Comment on above: Performed By: #### 7 [id number], 9232870, 3253288, 9924158 #### [facility] [address] [place] [address] Platelets (Bld) [#/Vol] 382.0 E9/L Normal 150.0-500.0 [facility] Comment on above: Performed By: #### 7 [id number], 5766886, 4051755, 3213686 #### [facility] [address] [place] [address] RBC (Bld) [#/Vol] 5.0 E12/L Normal 4.3-5.9 [facility] Comment on above: Performed By: #### 7 [id number], 0576011, 8724693, 1272646 #### [facility] [address] [place] [address] WBC corrected for nucl RBC Auto (Bld) [#/Vol] 7.3 E9/L Normal 4.0-11.0 [facility] Comment on above: Performed By: #### 7 [id number], 9770490, 9491062, 9428228 #### [facility] [address] [place] [address] CHEMISTRYOrdered By: SYSTEM SYSTEM on 12-25-2021 Ferritin [Mass/Vol] 40 ng/mL Normal 11 - 307 ng/mL [facility] Remisol CHEMISTRYOrdered By: Socrates chow on 12-25-2021 HbA1c (Bld) [Mass fraction] 5.3 % Normal <=5.9% [facility] ChemAutoSS Consent for Treatmenton 12-10 Consent for Treatment [id number]#1 .00CD:127 Normal [facility] Ferritinon 12-25-2021 Ferritin [Mass/Vol] 40 ng/mL Normal 11-307 [facility] Comment on above: Result Comment: NORM ALS MEN <30 YRS 16-132 ng/mL MEN >30 YRS 8-338 ng/mL WOMEN (PREMEN) 6-104 ng/mL WOMEN (POSTMEN) 12-210 ng/mL Performed By: #### 7 [id number], 7331537, 2378606, 4711792 #### [facility] [address] [place] [address] HEMATOLOGYOrdered By: SYSTEM SYSTEM on 12-25-2021 Basophils/100 [...] 13.2 % Normal 10.9 - 14.2 % [facility] Hematocrit (Bld) [Volume fraction] 41.8 % Normal 34.0 - 46.0 % [facility] Hemoglobin (Bld) [Mass/Vol] 14.2 g/dL Normal 12.0 - 16.0 gm/dL [facility] MCH (RBC) [Entitic mass] 28.3 pg Normal 27.0 - 34.0 pg [facility] MCHC (RBC) [Mass/Vol] 34.0 g/dL Normal 31.4 - 36.0 gm/dL [facility] MCV (RBC) [Entitic vol] 83.2 fL Normal 80.0 - 100.0 fL [facility] Platelet mean volume (Bld) [Entitic vol] 8.4 fL Normal 6.4 - 10.8 fL [facility] Platelets (Bld) [#/Vol] 382.0 E9/L Normal 150.0 - 500.0 E9/L [facility] RBC (Bld) [#/Vol] 5.0 E12/L Normal 4.3 - 5.9 E12/L [facility] WBC corrected for nucl RBC Auto (Bld) [#/Vol] 7.3 E9/L Normal 4.0 - 11.0 E9/L [facility] Physician Orderon 12-25-2021 Physician Order [id number]# 1.00CD:127 Normal [facility] Coding Summary.on 06-29-2021 Coding Summary. [id number] G h0bWw+PGhlYWQ+HZ8WKMM dV88fbQXviV0AQ7tCHL8L HQOHNBBPQG0QNN9hoSM9M NyeS5ToqxRe RjehjSLxXC74KPf3MMC4r CubFWjywB8xwPFpM6p4Vs KtWQ63cD35IVlwYTRyCoE 3LjZpbjsgbWFy W8qtIyFjvZRlDtt+PHRhY mxlIHdpZHRoPScxMDAlJy BvyTgsUO7yUw2vFXUtZLV vbGxhcHNlOiBj x3vhAWBzFKbkIP3htCtxK 9IvvSO9DHRsi4k4We52rW I+IVRyXVL1dWxfPDhyh87 1PtRhs1ohCKF3 lYUlMSewCHR7U59bd4X1H RAtPRVqDGI5aBI4dR3hrR enuktjF2PrdLHePqB8PFW 3lOZuhX3mzJqd xdzjiG3iMeu+A53XBF0JG XCZYV7GWdn4A7MkHinvrV I+FJ82SZJsLK54cZCxfAH yh8xylWh1XxGt NVWoTTB1oVmsRFfpc8BqV HZpD13xwLHwp5J2XULbyF raeMRuXdDnkZV2xI8xSDm htxuyx3uwftqi Ahppd4syis94mZ17Z85zH FdxAWZwKXK8UJHaTUIuuP jujh7xyU8fFz8+LAzup7v lo7omvAx6HqCf WNVpqqFvlOivWTG8u1MuW h14R0NazDmom2AbXct1nz 52yEZfq5Y6bBA6TTlhYES tyK6tARfsGtB1 JWRaEyJfdI27eERyEUguR f6ikIyhjTsxYC0iVQUbcs hwSCZosV2jMMNboEGfjVv zEH6iBNMclyro g895OeExLND1HQAtyYQmG 3OlnD3cQjYnPXVfYPUzU3 KfiOQyUFfrX803MHkyCpA 5DIKregRlS6Ys KALnfOaxRfN4j2R5Nu0Bz 4JqjpcwVXL5IBdqZBAxFx I7SvYrNvX5A1XnXmm9JRD lpDmeMT7sM2Uw YEUtszjhmilbvNS3PLCiV HEtoM39kJXqWKihJa2tx8 S6d544VORsZQAbzJ50Vq7 udDogMTBwdCBU rS8pbsrpg3dwygbjDbBuS FVhTNf4TWc4IWZuxRfgVw LiLZN8YaC4AGK6tZLsnU7 zrZwvnsozfA9b Oyc+N77peG8aKUO5WKE8t qqkKQHknbWsTK03FD83O9 RyPjwvdGFibGU+PGRpdiB epGaoAC9wGyKf n7hql7DpTYjjA6BsRRBtZ XxmQnl5YASrYON7wPE8sH 9tQMIzNBgfw5R0cNM6A6U frjAhxb8gj8cw ROQaTAkrC46xbJRfl7P8D SZblEZ3AYIuiAjzWcOfvQ 93Oyc+CODhrFqsp3KhOze lo1mdm6xjzNr7 EjExVNDylfCvpTpjGTW4n 6GtRp57D14cLXazDVKaWY FnWQTjOOKsnGwoeu3huP6 wIi8+PGNvbCB3 cNF8wQ9lPDJeSnM4PEvbN 491CdWuyHFbEjmsp2qdm6 bpsOy2SuLsVGTztuPupDs vJPZ2j6ZjOr07 S99xEWfsQUKvVTOmWHLbU QAqmTcbwh4lsS5hNr9+PC 8xh7eigy95tW46rUI+PHR wHJU9hTqvUSsf BFUljU6bHMkgHhL9TGOlJ eMjzV01pWXkRLorNx9vpN zojDphFF8mJIZzqgabf75 3RqNvm8izJLVn kEDzQZlxGUP4P12oh4U5M YYxTAOfAQT7wMG1wG6tcX lnbjogbGVmdDsgdmVydGl oCYgcDIppC869 IHRvcDsnPlBhdGllbnQgT hTtZIc9K6DaKdj4ZYIkeQ ffTD0byRXjSGgqNn8tvFt nzWwzAQ5dWWBs snfee577IqQut6syJHNdz HHmCGzvQIQ1H46en2N8BR GfUPMwJHD4xQJ2dB7viHf nbjogbGVmdDsg ltOkuCifWNqbHRrmW321Q HRvcDsnPkJpcnRoIERhdG E1FK32SJ19dWUzk3J2lWT 9I1ZcHLUooypa bhzxxTZ7TOMhDYCpmW60L k9wfEsdMb8wZVNeNTS0LJ VkrBOvW1PfmY2pYuAlWSB wCRAnE8VokYWv UOmxD204XSleJnF1LVRxt iYyF7VaPNCdeCqeHxK7d7 S9Dc1KK6Y0RL42UC53gNM zk6F6bHG2S9Ef VJKzuzfukatjrDB1YUXlK ZMuqB19Ty3ieTjfDu5kQS SpKRD7VQGpbZVkI1ZyvF1 yOiAjMDAwMDAw Z8SdhEHoHRhnY670IIvaT oI9JLVfirGdP5FcOKZpgG mkUbO6v7H6Dp6SMVz1QW5 5RH46sBXnf6E2 bJA7F1NcBKElszluwtuos RC8WYAeBQRkuF91Xv6bmY rdBq2xMZWeGCO3TIOabZF iI3MxyV6cTjQj BQUpXPVfR1YukWVwJZghE 378RVxeLgC8BXZeswBcF0 BhPDSacIofYhR3i6J9Kr1 ITKNiQQ04VTY5 iTV6KW84FQ33A8YeBhyzz GFibGU+PHRhYmxlIHdpZH RoPScxMDAlJyBzdHlsZT0 xVa5oUCPcDBVc cWphlWCsZoXys0dwXYHqL GwoBF0ebEraP0DdfBI2VI Lmm9r5Fe15V70iA0CtrLS +UCBtvRX1zBE4 gZ7fSaFgHmZ2XDywB133H mSfbVFzZvaxi3mal6jxfR n1GfB6TXFdwdUhjRhqMGB 7q1CnCe25P77l IHdpZHRoPSIxNSUiIHZhb Cehcd3iwQ3nGh6+PGNvbC L4rME0mE4lCeNcPjL5KKj fP749MtIpgHHy Fiszw0vjy7xdsMh3ScNkE SQtxqUbnSobZCV9c1IdFq 49D0SceQplz3CyFbu9tg7 0iKMda8P8kWJ2 J3PaXDNktdogyPDheLspJ H9aANQleudrJLIeuB8xET SqG5b5FbIyDfO1VGocR7I lfiF2FQWpfVSn UMhcAID9A53rm1N4CDRtA AWcIQJ6vYC3bJ1qzOfvit ogbGVmdDsgdmVydGljYWw zJKyjI028SSQh mUulRSVxcR7cSMMeoFAtq VrqUA9gSBSkcxaaDtTRRn NPLCBIQVlMRVkgUjwvdGQ +QOImNGW8cRsz XOnpOBHtjR5mFVRiG3v9J dXpLhC3RNbaM6KvZCOkco ayWc02cV8aJbYuVgY0SEp rI7MnyfK0HNBx lLKeVGhxGHC8F44zk1H5V JJqGRCmSEJ6wQT9lY0dcT lnbjogbGVmdDsgdmVydGl bVVrbCOdgH201 XNYbqIviUvFrPeG3GuY9T IC6S7OlRva4ERMcfTazQK 6ujWXtEFtuJk0vnVzqqXt kDB1vWPUulqqu QEFhvB5tSEDgxZLubFwbD E8tQTXdggrxw900KrUbYA M3IHHegVVuP1LnjA3qCxO wCZOsZTSwH1Kc gEMwUXkvK800IMknRsH4Q NNandGnL7VpZCMzaSwrYw A4v1N4Pi2rGVITPZAiqix vdGQ+PHRkIHN0 hGuaBZekDMTspR9rWPFzI 4d0StXrUaX7NRjvR0DvRK GdcsclBk20wN9xOlSyYaQ 6CRofH0LdffY4 VIFmdCGqXOciOOI4U98of 5H4NSYtUALcBXL6fNT7kO 1hbGlnbjogbGVmdDsgdmV ydGljYWwtYWxp S437IYNnoDydAuOmoCLuX TwvdGQ+QDKvLDD6vWgwUU arQQFvtW2cNWSmK2n4ZkV aDbU3BBpaB1Sh JYZdpnwdCy04fD2cOsEhQ kG2RSshX8PpslH8YPWylB XmZCdlAEN3R99mk1N0NXA pUDUhMYX9sCT5 aE3ycChssavncIRkmWnlp nJdgTvmDDcfXQiuD185HA DuiUygJs14jJVfmPcdxoS 8R2KrFrgkgKJ+ CT55ACTzBU22dMNhvNMra 6xswOs4OzIhHBQiPDM7gV pvAEsxe5WnRACxM36bzJC ur6J9HHYwpWmf pLUwBfEfwED8fE0kXNivq ufbd5qosrnfVqhrf5epsj 46xQ75E59zCXzhBZNwENX zMCUiIHZhbGln qs9zvI7wOg0+WKUylTI8l LQ7fM5dXoCwKaL0OEzcQ9 94TfJvhPJwMjtmu0dje6y nvDs9FoMiSNHx qdXjkOgaSCS1w8OoPa49A 29sIHdpZHRoPSIyMCUiIH BpnPcolr5cvB5kZo6+PC9 yl8pwua73oS83 dHI+UYCnEBG4nNflDWmcV OZgpM4gRYvtJcC3LPPrZj DzpO12eIKmLQomRm0anDy veHljJA4wASXm gihoj469IcJsn7ntFAQep JKsTEhqVZI0G75vp0N1JJ PhOIBkOTJ8gOK6uH3kuZb nbjogbGVmdDsg clUnqLqwUEvlABoxU326N HRvtNdjQfTywFScA0aors WCHR9tJedeiAC+PHRkIHN 0eWxlPSdwYWRk tW7tNQAiS9v0YoTnJwG1T PjgK8OmfcB9PHZenCNeRA QrpSIOcU0vzjlen0urzzw gIzAwMDAwMDt0 OIv0BIYwbAxgUtShFPE6G aI0UAH9bTNmqN9qkWcpom nzpP4yRhq+RklOOjwvdGQ +NNBgSDP4uUpx PSnaGFByvG6nURUeF6o7Y oFjUvV3HLvjA0ZbupV9CG LxsLBpNJSipYAPwY2ddzt ca8gxqateRhRb GFBuLBe5BVv6IDRhqVcuQ jFnVZZ0XwP3TTJ1tWHrmA 6orQjmytntjM6cEwf+TVJ OOjwvdGQ+PHRk GLQ0xXupDEetGFDisY4gP SDwZ3k3XfCcBsG5IOibO7 KwrnD3CHQyaOFiOSDptTQ FcJ8wtydlv0vf idbwFtMdQHGkVYh1KXz6W PNjxRxgWuUcGIU9IxH6GF X7rSLnfE2zjCngfsierM7 wOyc+YTB2APW9 FH80BW57O8SkMnobbXXda +PHRhYmxlIHdpZHRoPS xzIXCdCkPiwAkmNR9zSg6 yZGVyLWNvbGxh cHNl (more content not included)... Normal [facility] Auto Diffon 06-09-2021 Basophils/100 WBC (Bld) 0.8 % Normal 0.0-2.0 [facility] Comment on above: Order Comment: Order Added by Discern Expert. Performed By: #### [id number] #### [facility] [address] [place] [id number] Basophils/Leukocytes Auto (Bld) [Pure # fraction] 0.1 E9/L Normal 0.0-0.2 [facility] Comment on above: Order Comment: Order Added by Discern Expert. Performed By: #### 2 [id number] #### [facility] [address] [place] [id number] Eosinophils/100 WBC (Bld) 2.3 % Normal 0.0-8.0 [facility] Comment on above: Order Comment: Order Added by Phil Expert. Performed By: #### 2 [id number] #### [facility] [address] [place] [id number] Eosinophils/Leukocyte s Auto (Bld) [Pure # fraction] 0.2 E9/L Normal 0.0-0.5 [facility] Comment on above: Order Comment: Order Added by Discern Expert. Performed By: #### 2 184534, 4172878, 89831742, 6474457, 8110714, 9333247 #### [facility] [address] [place] [address] 83987 Lymphocytes/100 WBC (Bld) 35.1 % Normal 14.0-50.0 [facility] Comment on above: Order Comment: Order Added by Phil Expert. Performed By: #### 2 322962, 5374443, 65879375, 6768929, 5485145, 5679266 #### [facility] [address] [place] [address] Lymphocytes/Leukocyte s Auto (Bld) [Pure # fraction] 3.0 E9/L Normal 1.0-4.0 [facility] Comment on above: Order Comment: Order Added by Discern Expert. Performed By: #### 2 652665, 3564606, 45005728, 7597582, 7194191, 8288218 #### [facility] [address] [place] [address] Monocytes/100 WBC (Bld) 4.6 % Normal 4.0-14.0 [facility] Comment on above: Order Comment: Order Added by Discern Expert. Performed By: #### 2 446074, 5306588, 19036612, 7177464, 4130603, 5905783 #### [facility] [address] [place] [address] Monocytes/Leukocytes Auto (Bld) [Pure # fraction] 0.4 E9/L Normal 0.2-1.0 [facility] Comment on above: Order Comment: Order Added by Phil Expert. Performed By: #### 2 453694, 9290894, 06727013, 8363118, 9109338, 0992797 #### [facility] [address] [place] [address] Neutrophils/100 WBC (Bld) 57.2 % Normal 36.0-75.0 [facility] Comment on above: Order Comment: Order Added by Discern Expert. Performed By: #### 2 202694, 1363552, 43051132, 5571409, 7371089, 3673047 #### [facility] [address] [place] [address] Neutrophils/Leukocyte s Auto (Bld) [Pure # fraction] 4.9 E9/L Normal 2.0-7.5 [facility] Comment on above: Order Comment: Order Added by Discern Expert. Performed By: #### 2 081188, 0192828, 79924112, 0817523, 2357123, 2836569 #### [facility] [address] [place] [address] CBC w/ Auto Diffon Erythrocyte distribution width (RBC) [Ratio] 13.6 % Normal 10.9-14.2 [facility] Comment on above: Performed By: #### 2 014548, 6307514, 88199876, 0483564, 9357241, 4028431 #### [facility] [address] [place] [address] Hematocrit (Bld) [Volume fraction] 43.0 % Normal 34.0-46.0 [facility] Comment on above: Performed By: #### 2 435338, 8287475, 27059415, 0609387, 1387050, 4534721 #### [facility] [address] [place] [address] Hemoglobin (Bld) [Mass/Vol] 14.1 g/dL Normal 12.0-16.0 [facility] Comment on above: Performed By: #### 2 750515, 6224541, 60854585, 9674252, 2433304, 1367937 #### [facility] [address] [place] [address] 42099 MCH (RBC) [Entitic mass] 27.6 pg Normal 27.0-34.0 [facility] Comment on above: Performed By: #### 2 829488, 4081512, 95233925, 0534971, 8690475, 9873337 #### [facility] [address] [place] [address] 19181 MCHC (RBC) [Mass/Vol] 32.8 g/dL Normal 31.4-36.0 [facility] Comment on above: Performed By: #### 2 134697, 6541278, 62784320, 3402542, 5961690, 0177557 #### [facility] [address] [place] [address] 66789 MCV (RBC) [Entitic vol] 84.2 fL Normal 80.0-100.0 [facility] Comment on above: Performed By: #### 2 078233, 3325170, 47092939, 8470628, 4645894, 3027790 #### [facility] [address] [place] [address] 65545 Platelet mean volume (Bld) [Entitic vol] 8.4 fL Normal 6.4-10.8 [facility] Comment on above: Performed By: #### 2 090103, 9081785, 02317451, 3139802, 1120648, 5851994 #### [facility] [address] [place] [address] Platelets (Bld) [#/Vol] 367.0 E9/L Normal 150.0-500.0 [facility] Comment on above: Performed By: #### 2 919115, 6277259, 43401427, 9744934, 6040588, 3382676 #### [facility] [address] [place] [address] RBC (Bld) [#/Vol] 5.1 E12/L Normal 4.3-5.9 [facility] Comment on above: Performed By: #### 2 375367, 4281637, 00893076, 5885372, 0083530, 5727688 #### [facility] [address] [place], [place] [address] WBC corrected for nucl RBC Auto (Bld) [#/Vol] 8.5 E9/L Normal 4.0-11.0 [facility] Comment on above: Performed By: #### 2 662219, 2948713, 76421623, 8709737, 9668164, 2913560 #### [facility] [address] [place] [address] CMPon 06-09-2021 Albumin [Mass/Vol] 4.4 g/dL Normal 3.3-5.0 [facility] Comment on above: Performed By: #### 2 083230, 8766596, 97119021, 6907816, 1052556, 6534342 #### [facility] [address] [place] [address] Albumin/Globulin (S) [Mass conc ratio] 1.6 Normal 1.1-2.2 [facility] Comment on above: Performed By: #### 2 294350, 7406814, 49559432, 5894128, 3134687, 8485562 #### [facility] [address] [place] [address] ALP [Catalytic activity/Vol] 100 Int._Unit/L High 21-98 [facility] Comment on above: Performed By: #### 2 274408, 4222793, 02508999, 5744916, 6368448, 4140077 #### [facility] [address] [place] [address] ALT No additional P-5'-P [Catalytic activity/Vol] 20 Int._Unit/L Normal 6-46 [facility] Comment on above: Performed By: #### 2 485049, 0426917, 33845151, 0782894, 9058171, 3282499 #### [facility] [address] [place] [address] Anion gap [Moles/Vol] 12 mmol/L Normal 6-16 [facility] Comment on above: Performed By: #### 2 415510, 0887380, 73841605, 6542258, 9988076, 3553062 #### [facility] [address] [place] [address] AST [Catalytic activity/Vol] 17 Int._Unit/L Normal 5-43 [facility] Comment on above: Performed By: #### 2 660545, 1854652, 77774130, 0328806, 2005313, 1941075 #### [facility] [address] [place] [address] Bilirubin [Mass/Vol] 0.7 mg/dL Normal 0.0-1.1 [facility] Comment on above: Performed By: #### 2 890918, 4827525, 81715157, 4489453, 7381448, 3871158 #### [facility] [address] [place] [address] Calcium [Mass/Vol] 10.0 mg/dL Normal 8.9-11.1 [facility] Comment on above: Performed By: #### 2 116909, 0344544, 84516738, 6815865, 7249392, 2972195 #### [facility] [address] [place] [address] Chloride [Moles/Vol] 101 mmol/L Normal 101-111 [facility] Comment on above: Performed By: #### 2 276673, 1482474, 48035102, 1057707, 5299233, 5527693 #### [facility] [address] [place] [address] CO2 [Moles/Vol] 29 mmol/L Normal 21-31 [facility] Comment on above: Performed By: #### 2 821508, 5150876, 13437791, 0137338, 2930314, 0013114 #### [facility] [address] [place] [address] Creatinine [Mass/Vol] 0.8 mg/dL Normal 0.5-1.3 [facility] Comment on above: Performed By: #### 2 582911, 0317670, 22814481, 5017436, 3749636, 5500319 #### [facility] [address] [place] [address] Globulin (S) [Mass/Vol] 2.8 g/dL Normal 1.4-4.0 [facility] Comment on above: Performed By: #### 2 529849, 4528203, 25579950, 5325524, 3427726, 0879997 #### [facility] [address] [place] [address] Glucose [Mass/Vol] 80 mg/dL Normal 55-199 [facility] Comment on above: Result Comment: If t his glucose result represents a fasting glucose, interpretation should refer to the following reference range: 55-99 mg/dL Performed By: #### 2 391519, 5422490, 86442875, 3737913, 7229715, 8593361 #### [facility] [address] [place] [address] Potassium [Moles/Vol] 4.6 mmol/L Normal 3.5-5.3 [facility] Comment on above: Performed By: #### 2 760348, 2811507, 35108816, 9954223, 1664265, 3756052 #### [facility] [address] [place] [address] Protein [Mass/Vol] 7.2 g/dL Normal 6.0-7.8 [facility] Comment on above: Performed By: #### 2 167361, 1608459, 03941135, 2246934, 1832925, 6580674 #### [facility] [address] [place] [address] Sodium [Moles/Vol] 137 mmol/L Normal 135-145 [facility] Comment on above: Performed By: #### 2 229166, 5248865, 87042110, 0244326, 7701680, 4396771 #### [facility] [address] [place] [address] Urea nitrogen [Mass/Vol] 14 mg/dL Normal 5-21 [facility] Comment on above: Performed By: #### 2 302712, 3071581, 54427355, 1993928, 9347912, 8607252 #### [facility] [address] [place] [address] Urea nitrogen/Creatinine [Mass ratio] 18 No Units Normal 10- [facility] Comment on above: Performed By: #### 2 232161, 6758929, 26049804, 0933019, 0575524, 0448570 #### [facility] [address] [place] [address] Consent for Treatmenton 05-13 Consent for Treatment [id number] .[id number]:127 Normal [facility] Lipid Panelon 06-09-2021 Cholesterol [Mass/Vol] 268 mg/dL High 120-200 [facility] Comment on above: Performed By: #### 2 799369, 2228952, 85304739, 3113664, 5697164, 6039936 ####[facility] [address] [place] [address] Cholesterol in HDL [Mass/Vol] 70 mg/dL Invalid Interpretation Code [facility] Comment on above: Result Comment: HDL > or equal to 60 mg/dL: Low cardiovascular risk HDL < 40 mg/dL : High cardiovascular risk Performed By: #### 2 623726, 2867593, 49478828, 3558748, 6368673, 3475133 ####[facility] [address] [place] [address] Cholesterol in LDL [Mass/Vol] 141 mg/dL High <=129 [facility] Comment on above: Performed By: #### 2 184065, 3807859, 95773846, 0482815, 0008273, 5353586 ####[facility] [address] [place] [address] Cholesterol in VLDL [Mass/Vol] 35 mg/dL Normal 7-40 [facility] Comment on above: Performed By: #### 2 607723, 3124869, 34499477, 2609906, 5517091, 9824365 ####[facility] [address] [place] [address] Triglyceride [Mass/Vol] 177 mg/dL High <=149 [facility] Comment on above: Performed By: #### 2 765405, 1322274, 33319957, 4477660, 2591091, 2549182 ####[facility] [address] [place] [address] Physician Orderon 06-09-2021 Physician Order [id number] 1.00CD:127 Normal [facility] TSHon 06-09-2021 TSH Qn 1.71 m[IU]/L Normal 0.34-5.60 [facility] Comment on above: Performed By: #### 2 897751, 2304819, 72077446, 6459999, 6975501, 7882034 ####[facility] [address] [place] [address] eGFRon 06-09-2021 GFR/1.73 sq M.predicted among blacks MDRD (S/P/Bld) [Vol rate/Area] mL/min/{1.73_m2} Normal >=59 [facility] Comment on above: Order Comment: Order added by Discern Expert. Result Comment: eGFR is race adjusted. AA=. Performed By: #### 2 167042, 6688985, 44954952, 2718365, 0844144, 1040018 ####[facility] [address] [place] [address] GFR/1.73 sq M.predicted among non-blacks MDRD (S/P/Bld) [Vol rate/Area] mL/min/{1.73_m2} Normal >=59 [facility] Comment on above: Order Comment: Order added by Discern Expert. Result Comment: Roof Truss Detailer rajeev kidney disease could be indicated at eGFR's of less than 60 mL/min/1.73m2. Kidney failure is indicated at less than 15 mL/min/1.73m2. Performed By: #### 2 697814, 7683386, 95131442, 5521746, 3567395, 3847281 ####[facility] [address] [place] [address] Vital Signs Date Time Vital Sign Value Performing Clinician Facility 01-09-2023 17:07-0400 Body weight 96.[address] JOSE KHAN . [facility] Comment on above: Performed By: #### AFPMAT #### [facility] [address] [place], [place] [address] Dr. Chloé Reagan 04-05-2022 18:31-0400 Blood Pressure Location [facility] 04-05-2022 18:31-0400 Body temperature 98.78 [degF] [facility] 04-05-2022 18:31-0400 Diastolic blood pressure 72 mm[Hg] [facility] 04-05-2022 18:31-0400 Heart rate 72 /min [facility] 04-05-2022 18:31-0400 SaO2% (BldA) [Mass fraction] 98 % Jo-Ann Lau [facility] 04-05-2022 18:31-0400 Systolic blood pressure 110 mm[Hg] [place] Judi [facility] Encounters Encounter Date Encounter Type Care Provider Facility Start: 07-16-2023 End: 07-16-2023 ambulatory JOSE KHAN Not Available Start: 05-12-2023 End: 05-12-2023 Emergency department patient visit Betty Geronimo Facility:[facility] Start: 12-22-2022 End: 12-23-[address] JOSE KHAN . Facility: Start: 12-17-2022 End: 12-18-[address] JOSE KHAN . Facility: Start: 10-24-2022 End: 10-25-2022 ambulatory NONE LISTED REQUEST Facility: Start: 09-27-2022 End: 09-28-[address] JOSE KHAN . Facility: Start: 05-21-2022 ambulatory Jareth Justin [place]: 04-05-2022 End: 04-06-2022 ambulatory Jo-Ann Lau [facility] Start: 04-05-2022 End: 04-05-2022 Patient encounter procedure Jo-Ann Lau [facility] Start: 12-25-2021 End: 12-26-2021 ambulatory Jose KHAN [place] [place]: 12-25-2021 End: 12-25-2021 Patient encounter procedure Jose KHAN [facility] Start: 06-09-2021 End: 09-08-2021 ambulatory Jareth Justin [place] [place] Date Procedure Procedure Detail Performing Clinician Start: 08-12-2017 Cervical cone Biopsy Co marianela KHAN back surgery lypomas removed Jose KHAN section Jo-Ann Orze ch Immunizations Immunization Date Immunization Notes Care Provider Fa cilijon 06-09-2021 influenza virus vaccine, unspecified formulation; Translations: [Fluzone PF Quadrivalent ] Jose KHAN [facility] Comment on above: Reason for Medicatio n: Prophylaxis 09-06-2020 SARS-CoV-2 (COVID-19 ) mRNA-[id number] vaccine Jo-Ann Orzech [facility] 08-09-2020 SARS-CoV-2 (COVID-19 ) mRNA-1273 vaccine Jo-Ann Orzech [facility] 03-27-2004 measles, mumps and rubella virus vaccine Jo-Ann Orzech [facility] 09-21-1996 DTaP, unspecified formulation Jo-Ann Orzech [facility] 09-20-1993 DTaP, unspecified formulation Jo-Ann Orzech [facility] 09-20-1993 Hib, unspecified formulation Jo-Ann Orzech [facility] 09-20-1993 measles, mumps and rubella virus vaccine Jo-Ann Orzech [facility] 03-17-1992 DTaP, unspecified formulation Jo-Ann Orzech [facility] 03-17-1992 Hib, unspecified formulation Jo-Ann Orzech [facility] 01-18-1992 DTaP, unspecified formulation Jo-Ann Orzech [facility] 01-18-1992 Hib, unspecified formulation Jo-Ann Orzech [facility] 1991 DTaP, unspecified formulation Jo-Ann Orzech [facility] 1991 Hib, unspecified formulation Jo-Ann Orzech [facility] Payers Date Payer Category Payer Self-pay 2022 Medicaid [id number] 2021 Unknown [id number] 2021 Unknown [id number] 1991 Unknown [id number] 2.16.8 [id number] 1991 Unknown [id number] 2.16.8 [id number] 1991 Unknown [id number] 2.16.8 [id number] 1991 Unknown [id number] 2.16.8 [id number] 1991 Unknown [id number] 2.16.8 40.1.174023.3.579.2.727 1991 Unknown [id number] 2.16.84 0.1.489860.3.579.2.593 1991 Unknown [id number] 2.16.84 0.1.215266.3.579.2.593 1991 Unknown [id number] 2.16.84 0.1.753112.3.579.2.593 1991 Unknown [id number] 2.16.84 0.1.611294.3.579.2.593 1991 Unknown [id number] 2.16.840 .1.389490.3.579.2.1259 Unknown [id number] 2.16.8 [id number] Social History Date Type Detail Facility Start: 03-22-2020 End: 04-05-2022 Tobacco smoking status Never smoked tobacco (finding) [facility] Tobacco smoking status Never [facility] Sex Assigned At Female [facility] Functional Status Date Assessment Result Facility 04-05-2022 Functional Status N/A [facility] Evaluation + Plan note Note Date & Type Note Facility Evaluation + Plan note No data available for this section [facility] Hospital Discharge instructions Note Date & Type Note Facility Hospital Discharge instructions No data available for this section [facility] Progress note Note Date & Type Note Facility Progress note No data available for this section [facility] Summary Purpose Family History No Family History Records FoundNo Family History Records FoundNo Family History Records FoundNo Family History Records Found Advance Directives No Advanced Directives Records FoundNo Advanced Directives Records FoundNo Advanced Directives Records FoundNo Advanced Directives Records Found Additional Source Comments Care Team (unrecognized sect ion and content) Personnel Name: Mary Kate Evans CNP Address: [address] [place] [address], [address] INFORMATION SOURCE (unrecogn ized section and content) DATE CREATED AUTHOR 05/21/2022 [facility] DATE CREATED AUTHOR AUTHOR'S ORGANIZ ATION 01/18/[address] [facility] DATE CREATED AUTHOR AUTHOR'S ORGANIZ ATION 05/24/2023 [facility] DATE CREATED AUTHOR AUTHOR'S ORGANIZ ATION 07/18/2023 [facility] FOR RECORDS PERTAINING TO PATIENTS WHO ARE [...] BE BASED ON THE PRIMARY CLINICAL RECORDS. [facility] [employer] [facility]. provides no warranty or guarantee of the accuracy or completeness of information in this document.
== END 2024-07-23 15:37 | disposition home or self-care (01) ==
LOC: US 15:36
PROVIDERS: Visit Provider Obstetrics & Gynecology
DX: N93.9 Abnormal uterine and vaginal bleeding, unspecified (principal); Z30.431 Encounter for routine checking of intrauterine contraceptive device
CPT/HCPCS: 76830